=== PATIENT | male | born 1950 | race Caucasian/White ===

== ENCOUNTER → 2020-10-20 10:53 | Outpatient (BNVA) | payer BC, MEDICARE, SELFPAY | PROVIDERS: PCP Internal Medicine; Visit Provider Urology | DX: R97.20 Elevated prostate specific antigen [PSA] (principal); R39.12 Poor urinary stream | CPT/HCPCS: 51798; 81002 ==

== ENCOUNTER → 2021-12-07 08:38 | Outpatient (BNVA) | payer BC, MEDICARE, SELFPAY | PROVIDERS: PCP Internal Medicine; Visit Provider Urology ==

== ENCOUNTER → 2023-02-04 13:23 | Outpatient (BNVA) | payer MEDICARE, SELFPAY | PROVIDERS: PCP Internal Medicine; Visit Provider Urology | DX: N40.1 Benign prostatic hyperplasia with lower urinary tract symptoms (principal); N13.8 Other obstructive and reflux uropathy; R97.20 Elevated prostate specific antigen [PSA]; Z79.899 Other long term (current) drug therapy | CPT/HCPCS: 99212 ==

== ENCOUNTER 2023-05-21 14:51 | Outpatient (REF) | payer MEDICARE, SELFPAY ==
[2023-05-21 16:33] LABS: Vitamin B12 493 pg/mL (200-900)
== END 2023-05-21 14:52 | disposition home or self-care (01) ==
LOC: HO.LAB 14:51
PROVIDERS: PCP Physician Assistant; Visit Provider Psychiatry & Neurology Neurology
DX: G31.84 Mild cognitive impairment of uncertain or unknown etiology (principal)
CPT/HCPCS: 36415; 82607

== ENCOUNTER 2023-05-26 03:57 | Emergency (ER) | payer MEDICARE, SELFPAY ==
--- NOTE | ~2023-05-26 | CT_ITS ---
EXAMINATION: NONCONTRAST HEAD CT NONCONTRAST CERVICAL SPINE CT INDICATION INFORMATION: Fall, mild neck pain COMPARISON: None TECHNIQUE: Separate noncontrast CT examinations of the head and cervical spine were performed. Coronal head CT images and coronal and sagittal cervical spine images were created at the technologist workstation. DLP: 964 mGy-cm DOSE LOWERING TECHNIQUES: This CT examination was performed using dose optimization techniques as appropriate, variously including the following: - Automated exposure control - Adjustment of mA and/or kV according to patient size (this includes techniques or standardized protocols for targeted exams were dose is matched to indication/reason for exam; i.e. extremities or head) - Use of iterative reconstruction technique FINDINGS: Head: There is no evidence of acute intracranial hemorrhage or territorial infarction. No abnormal mass-effect or midline shift is seen. Morris to white matter differentiation is well preserved. No extra-axial fluid collections are identified. The ventricles are normal in size. Mild volume loss is noted. The osseous structures and soft tissues are normal. The mastoid air cells and visualized portions of the paranasal sinuses are well-aerated. Cervical spine: There is anatomic alignment of the vertebral bodies and posterior elements. Vertebral body heights are maintained. There is degenerative change at the atlantodens articulation. There is mild to moderate right-sided facet arthropathy. Prominent osteophytes are present throughout the mid and lower cervical spine, suggesting diffuse idiopathic skeletal hyperostosis. Intervertebral disc spaces are relatively well-preserved. No evidence of acute fracture. No prevertebral soft tissue swelling. Visualized portions of the lung apices are unremarkable. The thyroid gland is unremarkable. CT/CT cervical spine wo IV con IMPRESSION: No acute findings identified in the head or cervical spine. Chronic appearing and degenerative changes as noted above.
[2023-05-26 04:08] VITALS: BP 172/88; PULSE 61; RESP 20; TEMP 36.6; O2SAT 98; BMI 26.6
--- NOTE | 2023-05-26 04:36 | ED_ITS ---
HPI - Fall General Chief Complaint: Fall Stated Complaint: fall, head strike Time Seen by Provider: 05/26/23 05:06 Source: patient and family Mode of arrival: ambulatory Limitations: no limitations History of Present Illness HPI Narrative: Patient comes to the emergency room complaining of a laceration to the scalp. Patient states he got out of bed, believes he was having a nightmare, patient got out of bed, then tripped, fell backwards and hit his head in the corner corner of a nightstand. Patient complaining of localized pain, mild neck pain, no loss of consciousness, patient is not on blood thinners. Related Data Home Medications ?Medication ?Instructions ?Recorded ?Confirmed azelastine 137 mcg (0.1 %) nasal intranasal 12/07/21 06/10/23 spray lisinopril 2.5 mg tablet 2.5 mg PO DAILY 12/07/21 06/10/23 simvastatin 20 mg tablet 20 mg PO BEDTIME 12/07/21 06/10/23 Previous Rx's ?Medication ?Instructions ?Recorded cyclobenzaprine 10 mg tablet 10 mg PO BEDTIME #14 tabs 05/10/22 meloxicam 15 mg tablet 15 mg PO DAILY #14 tabs 05/10/22 tamsulosin 0.4 mg capsule 0.4 mg PO DAILY #90 caps 02/04/23 finasteride 5 mg tablet 5 mg PO DAILY 90 days #90 tabs 06/10/23 Allergies Allergy/AdvReac Type Severity Reaction Status Date / Time levofloxacin [From LEVAQUIN] Allergy Intermediate RASH/HIVES Verified 06/10/23 14:08 anethseia Allergy Unknown redness Uncoded 06/10/23 14:08 and itching Review of Systems Review of Systems: Constitutional : No Weight loss, No Fever, No Chills, No Night Sweats, No Fatigue, No Malaise ENT/Mouth : No Hearing loss, No Ear Pain, No Nasal Congestion, No Sinus Pain, No Hoarseness, No sore throat, No Rhinorrhea, No Swallowing Difficulty Eyes: No Eye Pain, No Swelling, No Redness, No Foreign Body, No Discharge, No Vision Changes Cardiovascular : No Chest Pain, No SOB, No Dyspnea on Exertion, No Orthopnea, No Edema, No Palpitations Respiratory : No Cough, No Sputum, No Wheezing, No Smoke Exposure, No Dyspnea Gastrointestinal : No Nausea, No Vomiting, No Diarrhea, No Constipation, No abdominal Pain, No Hematochezia, No Melena Genitourinary : no irregular bleeding, No Dysuria, No Urinary Frequency, No Hematuria, No Urinary Incontinence, No Urgency, No Flank Pain, No Urinary Flow Changes, No Hesitancy Musculoskeletal : Complaining of mild neck pain, No joint pain, No Myalgias, No Joint Swelling Skin : Complaining of a scalp laceration Neuro : No Weakness, No Numbness, No Paresthesias, No Loss of Consciousness, No Dizziness, No Headache Psych : No Anxiety/Panic, No Depression, No SI/HI/AH/VH, No Social Issues, Heme/Lymph: No Bruising, No Bleeding,No Lymphadenopathy Endocrine : No Polyuria, No Polydipsia, No Temperature Intolerance [facility] Past Medical History Medical History Elevated prostate specific antigen [PSA] BPH (benign prostatic hyperplasia) Increased prostate specific antigen (PSA) velocity Social History Social History Household Members: Spouse Physical Exam Vital Signs: Vital Signs: Last Vital Signs Temp 97.8 F 05/26/23 05:38 Pulse 55 05/26/23 05:38 Resp 18 05/26/23 05:38 BP 158/62 H 05/26/23 05:38 Pulse Ox 100 05/26/23 05:38 O2 Del Method Room Air 05/26/23 05:38 BMI result Body Mass Index 26.6 Const: Other: Appearance: Alert. Oriented X3. No acute distress. Eyes: Pupils equal, round and reactive to light. ENT: Pharynx normal. Neck: Normal inspection. Neck supple. No lymph nodes noted. No crepitus CVS: Normal heart rate and rhythm. Pulses normal. Normal S1 and S2 Respiratory: No respiratory distress. Breath sounds normal. No Wheezing. No rales Abdomen: Soft and nontender. No rigidity. No distention. Skin: Skin warm and dry. Normal skin color. Normal skin turgor. There is a 3 cm laceration to the scalp Extremities: No lower extremity edema. No Lacerations. No Rash Neuro: Oriented X 3. No motor deficit. No sensory deficit. Moving all extremities. No slurred speech. CN 2 through 12 grossly intact Psych: calm, cooperative, normal affect Procedures Laceration Laceration 1: Site: scalp Size (cm): 3 Description: linear Depth: simple, single layer Local Anesthetic: lidocaine 1% and with epi Amount of anesthesia used (mL): 4 Pre-repair: wound explored Skin layer closed with: other (Jania) Number of sutures: 5 Medical Decision Making Medical Decision Making MDM Narrative: -my interpretation of head CT: No intracranial bleed -patient has a 3 cm laceration, 5 jania were applied -Tylenol p.o. was offered to the patient Differential Diagnosis Differential Diagnoses: The differential diagnosis associated with the presentation includes (Intracranial bleed, contusion, concussion, laceration to scalp) Admission/Observation Consideration of admission/observation: Escalation of care including admission/observation considered (Patient came in complaining of headache, head trauma, admission was considered) Independent Interpretation I performed an independent interpretation of an: CT Scan Radiology Impression Discussion of test interpretation with radiology: I have reviewed the radiologist's reading. Radiologist Impression: INDINGS: Head: There is no evidence of acute intracranial hemorrhage or territorial infarction. No abnormal mass-effect or midline shift is seen. Morris to white matter differentiation is well preserved. No extra-axial fluid collections are identified. The ventricles are normal in size. Mild volume loss is noted. The osseous structures and soft tissues are normal. The mastoid air cells and visualized portions of the paranasal sinuses are well-aerated. Cervical spine: There is anatomic alignment of the vertebral bodies and posterior elements. Vertebral body heights are maintained. There is degenerative change at the atlantodens articulation. There is mild to moderate right-sided facet arthropathy. Prominent osteophytes are present throughout the mid and lower cervical spine, suggesting diffuse idiopathic skeletal hyperostosis. Intervertebral disc spaces are relatively well-preserved. No evidence of acute fracture. No prevertebral soft tissue swelling. Visualized portions of the lung apices are unremarkable. The thyroid gland is unremarkable. CT/CT cervical spine wo IV con IMPRESSION: No acute findings identified in the head or cervical spine. Chronic appearing and degenerative changes as noted above. Critical Care Time Critical Care Time Critical Care Time: Yes Total Critical Care Time: 60 Attestation: I have personally provided critical care time. Time includes review of lab data, radiology results, discussion with consultants, and monitoring for potential decompensation. Intervention performed as documented. Discharge Plan Discharge Clinical Impression: Fall, Laceration of scalp Patient Disposition: Home, Self-Care Instructions: Staple Care (ED) Additional Instructions: Your jania need to be removed in 7-10 days. Please follow-up with your primary care physician tomorrow. If you have any worsening or new symptoms, please return to the emergency room or call 911 Prescriptions: No Action tamsulosin 0.4 mg capsule 0.4 mg PO DAILY Qty: 90 3RF meloxicam 15 mg tablet 15 mg PO DAILY Qty: 14 0RF cyclobenzaprine 10 mg tablet 10 mg PO BEDTIME Qty: 14 0RF finasteride 5 mg tablet 5 mg PO DAILY 90 Days Qty: 90 3RF lisinopril 2.5 mg tablet 2.5 mg PO DAILY azelastine 137 mcg (0.1 %) aerosol,spray intranasal simvastatin 20 mg tablet 20 mg PO BEDTIME Interventions: ED Discharge Assessment Last Done: 05/26/23 05:45 Discharge Date/Time: 05/26/23 05:46 Print Language: Kazakh
--- NOTE | 2023-05-26 04:38 | PC.NURSE ---
pt to ct-scan
[2023-05-26 04:50] VITALS: BP 162/81; PULSE 60; RESP 18; TEMP 36.2; O2SAT 94
[2023-05-26 05:38] VITALS: BP 158/62; PULSE 55; RESP 18; TEMP 36.6; O2SAT 100
== END 2023-05-26 05:46 | disposition home or self-care (01) ==
PROVIDERS: Emergency Provider Emergency Medicine
DX: S01.01XA Laceration without foreign body of scalp, initial encounter (principal); W06.XXXA Fall from bed, initial encounter; Y93.9 Activity, unspecified; Y92.009 Unspecified place in unspecified non-institutional (private) residence as the place of occurrence of the external cause; Y99.9 Unspecified external cause status
CPT/HCPCS: 12002; 70450; 72125; 99283; 99284

== ENCOUNTER 2023-06-10 14:05 | Outpatient (AMB) | payer MEDICARE, SELFPAY ==
--- NOTE | 2023-06-10 14:07 | MHC.OFFVIS ---
Intake Intake Visit Reasons: 4m follow up Intake Note: Patient is present for Telephone Follow up Urology Med: Tamsulosin Antibiotic Allergy: Levofloxacin Blood Thinner: None Pharmacy: [facility] Allergies levofloxacin [From LEVAQUIN] Allergy (Intermediate, Verified 06/10/23 14:08) RASH/HIVES anethseia Allergy (Unknown, Uncoded 06/10/23 14:08) redness and itching Medication List - Last Reconciled 06/10/23 by Oniel Rowe MD azelastine intranasal cyclobenzaprine 10 mg PO BEDTIME finasteride 5 mg PO DAILY 90 days lisinopril 2.5 mg PO DAILY meloxicam 15 mg PO DAILY simvastatin 20 mg PO BEDTIME tamsulosin 0.4 mg PO DAILY HPI HPI Comments History of Present Illness Details Pj is a pleasant male. He is a patient of Dr. Kinney. He is seen for the following urologic conditions - elevated PSA - BPH Continue combination therapy finasteride with tamsulosin ANSHU 2+ Minimal nocturia Happy with current emptying Twelve month follow-up PSA Lower urinary tract symptoms Longstanding Prior TURP 2009 PSA historically around 4. Prior negative biopsy. 11/20 4.4, 12/19 3.7 32% Current medications include tamsulosin 0.4 mg daily Therapeutic plan - trial finasteride [facility] Medical History Elevated prostate specific antigen [PSA] BPH (benign prostatic hyperplasia) Increased prostate specific antigen (PSA) velocity Social History Household Members: Spouse Review of Systems Const Denies chills and Denies fever(s) Card Reports no additional complaints and Denies syncope Resp Denies cough GI Denies abdominal pain and Denies heartburn Reports as per HPI and Denies change in libido Neuro Denies syncope Psych Denies change in libido Endo Denies change in libido Physical Exam Const General: cooperative, healthy appearing, comfortable and no acute distress Orientation/consciousness: patient oriented x3 HEENT Face and sinus: Yes normal facial exam Mouth: moist mucous membranes Neck Neck: Yes normal visual inspection, Yes full ROM and Yes trachea midline Chest Chest palpation & inspection: normal inspection of the chest Resp Effort & Inspection: normal respiratory effort, able to speak in complete sentences and no respiratory distress GI Inspection: Yes normal to inspection Back/Spine/Pelvis Cervical Spine: normal cervical lordosis Thoracic/Lumbar Spine: thoracic and lumbar spine normal to inspection Skin General skin exam: no rashes or lesions noted Neuro General: patient oriented x3, gait normal, tone normal and moves all extremities Extrem General: Yes normal to inspection and Yes capillary refill normal Assessment & Plan Assessment & Plan (1) Upper respiratory tract infection: Code(s): J06.9 - Acute upper respiratory infection, unspecified (2) BPH (benign prostatic hyperplasia): Code(s): N40.0 - Benign prostatic hyperplasia without lower urinary tract symptoms Qualifiers: Lower urinary tract symptom presence: symptoms present Lower urinary tract symptom detail: weak urinary stream Qualified Code(s): N40.1 - Benign prostatic hyperplasia with lower urinary tract symptoms; R39.12 - Poor urinary stream (3) Elevated prostate specific antigen [PSA]: Code(s): R97.20 - Elevated prostate specific antigen [PSA] Plan 12 month follow-up PSA Orders: Orders Prostate Specific Antigen 364 Days R97.20 - Elevated prostate specific antigen [PSA] Patient Instructions: Imaging studies, laboratory and physical exam results were discussed and reviewed in detail. No major barriers to patient understanding were identified. An opportunity to ask questions regarding the treatment plan was provided. All questions were answered. The patient expressed understanding and agreement with the above treatment plan. The patient is aware they should contact our office by phone for worsening of their current condition or the appearance of new urologic symptoms. Compliance is encouraged with any medications and followup testing that is ordered. It is a privilege to participate in the urologic care of your patient. If you have any questions or concerns regarding treatment for the above conditions, or other urologic issues, please do not hesitate to contact me. The office telephone contact is [phone]. This note is constructed using voice recognition software. While every effort has been made to ensure accuracy felt machine mechanic errors may have been included. Yours sincerely, Dr Oniel Rowe MD, [facility] - Urology Providers of Expert, Compassionate Care for the Genitourinary System Telehealth Telehealth Location of provider rendering services: practice address Location of patient: address on file Patient Identification confirmed using: Name, : Yes Telehealth method: voice only Patient verbally consented to treatment: Yes Patient verbally consented to billing insurance company: Yes Patient informed of any privacy concerns related to visit: Yes Coding Level of Care Code Est Pt Level 4 (37840) Diagnoses Upper respiratory tract infection J06.9 Benign prostatic hyperplasia with weak urinary stream N40.1; R39.12 Lower urinary tract symptom presence: symptoms present Lower urinary tract symptom detail: weak urinary stream Elevated prostate specific antigen [PSA] R97.20
== END 2023-06-10 14:30 | disposition home or self-care (01) ==
PROVIDERS: Visit Provider Urology
DX: J06.9 Acute upper respiratory infection, unspecified (principal); N40.1 Benign prostatic hyperplasia with lower urinary tract symptoms; R39.12 Poor urinary stream; R97.20 Elevated prostate specific antigen [PSA]
CPT/HCPCS: 99442

== ENCOUNTER → 2023-06-10 14:05 | Outpatient (BNVA) | payer MEDICARE, SELFPAY | PROVIDERS: Visit Provider Urology ==

== ENCOUNTER 2024-06-04 12:08 | Outpatient (REF) | payer MEDICARE, SELFPAY ==
[2024-06-04 14:27] LABS: Prostate Specific Antigen 1.76 ng/mL (<0.05-4.0)
== END 2024-06-04 12:09 | disposition home or self-care (01) ==
LOC: HO.LAB 12:08
PROVIDERS: PCP Physician Assistant Medical; Visit Provider Urology
DX: R97.20 Elevated prostate specific antigen [PSA] (principal); Z12.5 Encounter for screening for malignant neoplasm of prostate
CPT/HCPCS: 36415; 84153

== ENCOUNTER 2024-06-09 13:32 | Outpatient (AMB) | payer MEDICARE, SELFPAY ==
--- NOTE | 2024-06-09 13:46 | A.OFFVIS_ITS ---
Intake Visit Reasons: 1y/PSA/PVR(set) Intake Note: Patient is Present for PVR/PSA Urology Med: Finasteride, Tamsulosin Antibiotic Allergy:Levofloxacin Blood Thinner: None Patient states that at times he can not make it to the bathroom in time. Frequency of urination has increased Todays PVR: 50ml Allergies levofloxacin [From LEVAQUIN] Allergy (Intermediate, Verified 06/10/23 14:08) RASH/HIVES anethseia Allergy (Unknown, Uncoded 06/10/23 14:08) redness and itching HPI Comments Details: Pj is a pleasant male. He is a patient of Dr. Kinney. He is seen for the following urologic conditions - elevated PSA - lower urinary tract symptoms Yearly review Continue combination therapy finasteride with tamsulosin ANSHU 2+ Significant PSA drawn on finasteride Has felt that he may have some side effects May reduce finasteride to Friday, Friday, Friday 12 month follow-up Lower urinary tract symptoms Longstanding Prior TURP 2009 PSA historically around 4. Prior negative biopsy. 11/20 4.4, 12/19 3.7 32%, 06/22 1.7 Current medications include tamsulosin 0.4 mg daily Therapeutic plan - interval review [facility] Medical History Elevated prostate specific antigen [PSA] BPH (benign prostatic hyperplasia) Increased prostate specific antigen (PSA) velocity Social History Household Members: Spouse Review of Systems Const Denies chills and Denies fever(s) Card Reports no additional complaints and Denies syncope Resp Denies cough GI Denies abdominal pain and Denies heartburn Reports as per HPI and Denies change in libido Neuro Denies syncope Psych Denies change in libido Endo Denies change in libido Physical Exam Const General: cooperative, healthy appearing, comfortable and no acute distress Orientation/consciousness: patient oriented x3 HEENT Face and sinus: Yes normal facial exam Mouth: moist mucous membranes Neck Neck: Yes normal visual inspection, Yes full ROM and Yes trachea midline Chest Chest palpation & inspection: normal inspection of the chest Resp Effort & Inspection: normal respiratory effort, able to speak in complete sentences and no respiratory distress GI Inspection: Yes normal to inspection Back/Spine/Pelvis Cervical Spine: normal cervical lordosis Thoracic/Lumbar Spine: thoracic and lumbar spine normal to inspection Skin General skin exam: no rashes or lesions noted Neuro General: patient oriented x3, gait normal, tone normal and moves all extremities Extrem General: Yes normal to inspection and Yes capillary refill normal Office Procedures Post Void Residual Post Residual Void Post Void Residual (PVR): 50 24088-Fpam Void Residual by ultrasound Assessment & Plan Assessment & Plan (1) BPH (benign prostatic hyperplasia): Code(s): N40.0 - Benign prostatic hyperplasia without lower urinary tract symptoms Category: Medical Qualifiers: Lower urinary tract symptom presence: symptoms present Lower urinary tract symptom detail: weak urinary stream Qualified Code(s): N40.1 - Benign prostatic hyperplasia with lower urinary tract symptoms; R39.12 - Poor urinary stream (2) Elevated prostate specific antigen [PSA]: Code(s): R97.20 - Elevated prostate specific antigen [PSA] Category: Medical Plan 12 month follow-up PSA and PVR Orders: Orders AMB Post Void Residual by ultrasound Today N40.1 - Benign prostatic hyperplasia with lower urinary tract symptoms, R39.12 - Poor urinary stream Prostate Specific Antigen 364 Days N40.1 - Benign prostatic hyperplasia with lower urinary tract symptoms, R39.12 - Poor urinary stream Patient Instructions: Imaging studies, laboratory and physical exam results were discussed and reviewed in detail. No major barriers to patient understanding were identified. An opportunity to ask questions regarding the treatment plan was provided. All questions were answered. The patient expressed understanding and agreement with the above treatment plan. The patient is aware they should contact our office by phone for worsening of their current condition or the appearance of new urologic symptoms. Compliance is encouraged with any medications and followup testing that is ordered. It is a privilege to participate in the urologic care of your patient. If you have any questions or concerns regarding treatment for the above conditions, or other urologic issues, please do not hesitate to contact me. The office telephone contact is [phone]. This note is constructed using voice recognition software. While every effort has been made to ensure accuracy valve pipe irrigator errors may have been included. Yours sincerely, Dr Oniel Rowe MD, [facility] - Urology Providers of Expert, Compassionate Care for the Genitourinary System Coding Level of Care Code Est Pt Level 4 (00948) Diagnoses Benign prostatic hyperplasia with weak urinary stream N40.1; R39.12 Lower urinary tract symptom presence: symptoms present Lower urinary tract symptom detail: weak urinary stream Elevated prostate specific antigen [PSA] R97.20 CPT Codes Post Residual Void - PVR CPT Code: 39030-Pint Void Residual by ultrasound ([id number])
== END 2024-06-09 14:20 | disposition home or self-care (01) ==
PROVIDERS: Visit Provider Urology
DX: N40.1 Benign prostatic hyperplasia with lower urinary tract symptoms (principal); R39.12 Poor urinary stream; R97.20 Elevated prostate specific antigen [PSA]
CPT/HCPCS: 99214

== ENCOUNTER → 2024-06-09 13:32 | Outpatient (BNVA) | payer MEDICARE, SELFPAY | PROVIDERS: Visit Provider Urology | DX: N40.1 Benign prostatic hyperplasia with lower urinary tract symptoms (principal); R35.0 Frequency of micturition; R39.12 Poor urinary stream; R97.20 Elevated prostate specific antigen [PSA] | CPT/HCPCS: 51798; 99212 ==

== ENCOUNTER 2025-04-07 12:36 | Outpatient (AMB) | payer MEDICARE, SELFPAY ==
--- OUTSIDE RECORDS SUMMARY | 2025-04-07 07:39 | XMS_ITS | Continuity of Care Document ---
Author Name [facility] Organization [facility] Care Team Providers Care Joint Cleaning Machine Operator Name Role Phone [facility] Unavailable Unavailable Problems Combined list of problems from Department of Defense and Veterans Affairs facilities. It does not include entries that were removed or entered in error. Problem Status Onset Date Problem Type Date of Resolution Comments Source Allergic rhinitis Active Condition [facility] [place] [facility] Benign Prostatic Hypertrophy without Outflow Obstruction ([facility] [id number]) Active Condition [facility] [place] [facility] Cognitive decline Active Condition [facility] [place] [facility] HTN - Hypertension ([facility] [id number]) Active Condition [facility] [place] [facility] Hyperlipidemia ([facility] [id number]) Active Condition [facility] [place] [facility] Diagnosis: ICD-10-CM I10 Essential (primary) hypertension Active Diagnosis [facility] [place] [facility] Diagnosis: ICD-10-CM Z88.1 Allergy status to other antibiotic agents Active Diagnosis [facility] [place] [facility] Medications Combined list of outpatient medications from Department of Defense and Veterans Affairs facilities.Medications provided include 1) outpatient medications from the last 15 months, and 2) patient-reported medications. Medication Details Route Status Patient Instructions Prescription Expires Prescription Number Last Dispense Date Ordering Provider Order Date Order Qty Source ALBUTEROL 90MCG/ACTUA T (CFC-F) INHL,ORAL,8 .5GM DOSE COUNTER INHALE 2 PUFFS BY MOUTH EVERY 4 HOURS NEEDED RESPIR ATORY (INHAL ATION) ACTIVE TERRANCE NUNES 2024 [facility] [place] [facility] CALCIUM 250MG/VITAM IN D 125UNT TAB TAKE TWO TABLETS BY MOUTH TWICE DAILY ORAL ACTIVE TERRANCE NUNES 2024 [facility] [place] [facility] FINASTERIDE 5MG TAB TAKE ONE TABLET BY MOUTH ONCE DAILY ORAL ACTIVE TERRANCE NUNES 2024 [facility] FLUTICASONE PROPIONATE 50MCG/SPRAY SOLN,NASAL, 16GM INSTILL 2 SPRAYS INTO EACH NOSTRIL ONCE DAILY NASAL ACTIVE MANJU TERRANCE Melo 2024 [facility] LOSARTAN 50MG TAB TAKE ONE TABLET BY MOUTH ONCE DAILY ORAL ACTIVE NUNES, TERRANCE Melo 2024 [facility] MEMANTINE TAB TAKE 5MG BY MOUTH ONCE DAILY ORAL ACTIVE NUNES TERRANCE Melo 2024 [facility] SERTRALINE HCL 100MG TAB TAKE ONE-HALF TABLET BY MOUTH ONCE DAILY ORAL ACTIVE NUNES TERRANCE Mleo 2024 [facility] SIMVASTATIN 40MG TAB TAKE ONE-HALF TABLET BY MOUTH ONCE DAILY ORAL ACTIVE NUNES TERRANCE Melo 2024 [facility] TAMSULOSIN HCL 0.4MG CAP TAKE 2 CAPSULES BY MOUTH AT BEDTIME ORAL ACTIVE NUNES TERRANCE Meol 2024 [facility] Allergies, Adverse Reactions, Alerts Combined list of allergies from Department of Defense and Veterans Affairs facilities. It does not include entries that were removed or entered in error. Substance Category Reaction Severity Reaction type Status Date Reported Comments Source LEVAQUIN Propensity to adverse reactions to drug (finding) Urticaria active 4 [facility] SCALLOPS Propensity to adverse reactions to substance (finding) Nausea and vomiting active 4 [facility] Immunizations Combined list of available immunizations from the Department of Defense and Veterans Affairs facilities. Immunization Series Date Given Administered By Site Reaction Lot Number CVX Code Drug Hydrogen Power Plant Manager Status Comments Source INFLUENZA, UNSPECIFIED FORMULATION 2023 88 complet ed Completed Series, HISTORICA L INFORMATI ON - FROM PATIENT'S RECALL, [facility] Vital Signs Combined list of inpatient and outpatient Vital Signs from Department of Defense and Veterans Affairs, ranging from 12 months to all on record, depending upon the facility. Vital Sign Value Date Comments Source SYSTOLIC BLOOD PRESSURE 136 10/22/19 25 09:49:00 [facility] [place] [facility] DIASTOLIC BLOOD PRESSURE 78 025 09:49:00 [facility] [place] [facility] SYSTOLIC BLOOD PRESSURE 149 10/19/19 25 15:10:36 [facility] [place] [facility] DIASTOLIC BLOOD PRESSURE 81 025 15:10:36 [facility] [place] [facility] PULSE OXIMETRY 96 10/19/2024 15:10:36 [facility] [place] [facility] WEIGHT 169 10/19/2024 15:10:36 [facility] [place] [facility] BMI 30 kg/m2 10/19/2024 15:10:36 [facility] [place] [facility] PAIN 0 10/19/2024 15:10:36 [facility] [place] [facility] HEIGHT 63 10/19/2024 15:10:36 [facility] [place] [facility] TEMPERATURE 98 10/19/2024 15:10:36 [facility] [place] [facility] PULSE 64 10/19/2024 15:10:36 [facility] [place] [facility] RESPIRATION 16 10/19/2024 15:10:36 [facility] [place] [facility] Encounters Combined list of: 1) Encounters from Department of Veterans Affairs facilities going backup to the last 18 months, not all VA inpatient encounters are included; 2) Encounters from the Department of Defense facilities going backup to 280 months. Location Location Details Encounter Type Encounter Number Reason For Visit Attending Provider ADM Date DC Date Status Disposition Source [facility] Outpatient Encounter [id number] 07/05 [facility] [place] Outpatient Encounter [id number] Diagnos is: ICD-10- CM Z88.1 Allergy status to other antibio tic agents TASHIA ESPINOZA 09/15 [facility] [place] [place] [facility] Outpatient Encounter [id number] 10/19 [place] [facility] [place] [facility] [place] [facility] OFFICE O/P NEW LOW 30 MIN [id number] Diagnos is: ICD-10- CM I10 Essenti al (primar y) hyperte nsion NUNES,W ILLIAM J 10/19 [place] [facility] [place] [facility] [place] [facility] Outpatient Encounter [id number] 01/10 [facility] Social History Combined list of available smoking, tobacco, and other social history from Department of Defense and Veterans Affairs facilities. Social History Type Response Date Comment Sourc e Tobacco smoking status NHIS [facility]-TOBACCO USE FORMER CIGARETTES 10/19/2024 [facility] History of tobacco use [place]-TOBACCO NEVER USED OTHER TYPE 10/19/2024 [facility] Plan of Care List of future care activities from Department of Veterans Affairs facilities. Additional future care activities may be listed in the Assessment and Plan section. Date/Time Care Activity Care Activity Detail Facili ty 04/13/2025 AMBULATORY - MEDICINE AMBULATORY - MEDICI NE [facility]
--- OUTSIDE RECORDS SUMMARY | 2025-04-07 12:41 | XMS_ITS | Data Portability ---
Author Organization [place] - [facility], Allergy Address [address] [place] [id number] Care Team Providers Care Orthopedic Physical Therapist Name Role Phone PATRICIO ABDULLAHI Primary Care Provider Assessment Encounter Date Assessment Date Assessment LastModified by Organization Details LastModified Time 04/07/2024 04/07/2024 Patient was previously noted to have right maxillary sinusitis. Symptoms were improved with antibiotics and treatment of his dental infection. He now notes recurrent sinus pain and pressure despite another round of antibiotics. CT scan of sinuses recommended. Unable to perform today due to IT issues. Will schedule at his convenience [email or web address] Not available 04/07/2024 14:23:28 04/23/2024 04/23/2024 Patient with prior history of right maxillary sinusitis presents with persistent nasal congestion on the right side. He has a known mild septal deviation to the right side. He has been using Flonase and saline. CT scan performed today shows no evidence of sinus disease. At this point, the symptoms were not bad enough to warrant consideration for surgical intervention. Suggest continuing saline and Flonase. Return as needed [email or web address] Not available 04/23/2024 16:04:21 06/24/2024 06/24/2024 CL & CK. Both aids working fine. Annual appt made [email or web address] Not available 06/24/2024 16:06:24 01/06/2025 01/06/2025 both aids completely plugged. Chhaned wax guards. Both aids working fine now. [email or web address] Not available 01/06/2025 13:17:03 Plan of Treatment Reminders Order Date Submit Date Provider Last Modified By Organization Details Last Modified Time Details Appointments PFEIFFER Fitting Follow Up (30) 2024 02:00P M IVETH PADRON, [place] Not available Not available Not available Lab unlisted lab - allergens , zone 1 2024 025 MICHELLE [facility], [address] [facility] [facility], [place], [address], 01/28/2025 16:50:00 ige, total, serum 2024 025 MICHELLE [facility], [address], [place], [address], 01/28/2025 16:50:01 CBC w/ auto diff 2024 025 UNADILLA [facility], [address], [place], [address], 01/28/2025 16:49:59 Referral None recorded. Procedures None recorded. Surgeries None recorded. Imaging CT, sinuses, w/o contrast 2023 024 UNADILLA [facility], [address] [place] [address], [phone], 04/23/2024 16:19:51 CT, maxillofa cial, w/o contrast - KF to schedule 2023 024 [email or web address] Not available 05/12/2024 11:54:30 Medication Orders None recorded. Patient TargetsNo targets recorded. Patient Instructions Encounter Date Encounter Id Patient Instructions Last Modified By Organization Details Last Modified Time 01/25/2025 [id number] Patient interested in pursuing allergy immunotherapy. We discussed that since his symptoms are relatively controlled with antihistamines and occasional use of nasal steroids, that would likely not be helpful at his age. We will check an IgE level and a RAST panel to see if we can identify what he is allergic to and work on environmental controls as well [email or web address] Not available 01/25/2025 14:15:37 Reason for Referral None Reported. Results Created Date Observation Date Name Description Value Unit Range Abnormal Flag Note LastModifiedBy Organization Detail LastModifiedTime 04/23/[address], sinus es, w/o contr ast No observ ation record ed. [email or web address] [address] [facility], [place], [address], 04/23/2024 16:02:42 05/05/20 24 04/23/2024 CT, sinus es, w/o contr ast No observ ation record ed. [facility] [address] [facility] [address], [place], [address], 05/05/2024 16:06:47 05/18/20 24 06/13/2023 imagi ng/di agnos tic resul t No observ ation record ed. [email or web address] Not Available 19:48:07 05/18/20 24 06/16/2023 imagi ng/di agnos tic resul t No observ ation record ed. [email or web address] Not Available 19:48:12 05/18/20 24 06/16/2023 imagi ng/di agnos tic resul t No observ ation record ed. [email or web address] Not Available 19:48:15 05/18/2006/16/2023 imagi ng/di agnos tic resul t No observ ation record ed. [email or web address] Not Available 19:48:19 05/18/20 24 10/30/2023 audio gram No observ ation record ed. [email or web address] Not Available 19:48:34 05/18/20 24 11/27/2023 audio gram No observ ation record ed. [email or web address] Not Available 19:48:37 05/18/20 24 12/18/2023 audio gram No observ ation record ed. [email or web address] Not Available 19:48:41 05/18/20 24 12/25/2023 audio gram No observ ation record ed. [email or web address] Not Available 19:48:47 05/18/20 24 06/13/2023 audio gram No observ ation record ed. [email or web address] Not Available 19:48:54 Result Notes None recorded. Problems Name Problem SNOMED Code Status Onset Date Resolution Date Notes Provider Name and Address Organization Details Recorded Time Chronic maxillary sinusitis 67675361 Active 2022 Chronic maxillary sinusitis ; Note: Date Diagnosed : 07/02/2023 12:07 PM (J32.0) Not Available [facility] 4 02:29:32 Tinnitus of right ear 58455063250 08 Active 2022 Tinnitus, right ear; Note: Date Diagnosed : 06/13/2023 3:11 PM (H93.11) Not Available [facility] 4 02:28:59 Sensorine ural hearing loss of bilateral ears 866774610 Active 2022 Sensorine ural hearing loss, bilateral ; Note: Date Diagnosed : 06/13/2023 3:11 PM (H90.3) Not Available [facility] 4 02:28:56 Chronic right maxillary sinusitis 63671876875 936523 Active 2023 STEVEN SMITH MD [address] [facility], [place], [address] , [facility] - [facility] 4 13:39:57 Deviated nasal septum 298077365 Active 2023 STEVEN SMITH MD [address] [facility], [place], [address] , [facility] - [facility] 4 13:40:12 Chronic pain in face 628256061 Active 2023 STEVEN SMITH MD [address] [facility] [address] [address], [place], [address] , [facility] - [facility] 4 14:24:26 Nasal congestio n 12203424 Active 2023 STEVEN SMITH MD [address] [facility] [address], [place], [address] , [facility] - [facility] 4 16:02:36 Allergic rhinitis 30704105 Active 2024 STEVEN SMITH MD [address] [facility],[place] [address], [place], [address] , [facility] 5 14:14:39 Obstructi ve sleep apnea syndrome 01444668 Active 2024 STEVEN SMITH MD [address] [facility],[place] [address], [place], [address] , [facility] [place] 5 14:14:48 Problem Notes None recorded. Procedures Surgical History Date Name Laterality Status Provider Name and Address Organization Details Recorded Time 4 JMSNasal/Sinus Endoscopy completed STEVEN MERLOS MD [address] [facility],[place] [address], [place], [address], [facility] 04/07/2024 13:39:50 Imaging Results None recorded. Procedure Notes None recorded. Medical Equipment None Reported. Allergies Allergen ID Allergen Name Allergen Category Reaction Reaction Severity Criticality Documentation Date Start Date Code Code System Note Provider Name and Address Organization Details Recorded Time 49255 Levaquin medicatio n hives Not available Not available 2024 88423 2 RxNorm React ion: Hives ; Not Available [facility] 4 00:54:16 Medications Name Sig Start Date Stop Date Status Note LastModified by Organization Details LastModified Time losartan 50 mg tablet TAKE 1 TABLET BY MOUTH 1 TIME EACH DAY. active Not Available Not Available No t Available cyclobenz aprine 10 mg tablet PLEASE SEE ATTACHED FOR DETAILED DIRECTIO NS active Not Available Not Available No t Available amoxicill in 500 mg capsule TAKE 1 CAPSULE BY MOUTH THREE TIMES A DAY UNTIL FINISHED active Not Available Not Available No t Available latanopro st 0.005 % eye drops active Medicati on ID: [id number] B rand Name: latanopr ost Send Method: E-Prescr ibed Sub s Allowed: subs OK Medic ationGen ericName : latanopr ost Not Available Not Available Not Available doxycycli ne hyclate 100 mg capsule TAKE 1 CAPSULE BY MOUTH TWICE A DAY FOR 21 DAYS 04/07 completed Not Available Not Available Not Available donepezil 5 mg tablet TAKE 1 TABLET BY MOUTH EVERY DAY AT BEDTIME FOR 30 DAYS active Not Available Not Available No t Available azithromy shayla 250 mg tablet TAKE 2 TABLETS BY MOUTH TODAY, THEN TAKE 1 TABLET DAILY FOR 4 DAYS DIRECTED active Not Available Not Available No t Available ofloxacin 0.3 % eye drops PLEASE SEE ATTACHED FOR DETAILED DIRECTIO NS active Not Available Not Available No t Available brinzolam sue 1 % eye drops,jackelyn pension INSTILL 1 DROP INTO BOTH EYES TWICE A DAY active Not Available Not Available No t Available prednison e 20 mg tablet TAKE 3 TABS ON THE FIRST 3 DAYS, TAKE 2 TABS ON NEXT 3 DAYS, TAKE 1 TAB ON NEXT 3 DAYS, THEN STOP 04/07 completed Not Available Not Available Not Available acetamino phen 300 mg-codein e 30 mg tablet TAKE 1 TABLET BY MOUTH EVERY 4-6 HOURS NEEDED FOR PAIN active Not Available Not Available No t Available tamsulosi n 0.4 mg capsule TAKE 1 CAPSULE BY MOUTH 2 TIMES DAILY. TAKE 30 MINS AFTER SAME MEAL EVERY DAY. active Not Available Not Available No t Available simvastat in 20 mg tablet TAKE 1 TABLET BY MOUTH EVERYDAY AT BEDTIME active Not Available Not Available No t Available lisinopri l 10 mg tablet 04/07 completed Medicati on ID: [id number] B rand Name: lisinopr il Send Method: E-Prescr ibed Sub s Allowed: subs OK Medic ationGen ericName : lisinopr il Medic ation ID: [id number] B rand Name: lisinopr il Send Method: E-Prescr ibed Sub s Allowed: subs OK Medic ationGen ericName : lisinopr il Not Available Not Available Not Available sertralin e 25 mg tablet active Medicati on ID: [id number] B rand Name: sertrali ne Send Method: E-Prescr ibed Sub s Allowed: subs OK Medic ationGen ericName : sertrali ne Not Available Not Available Not Available simethico ne 125 mg chewable tablet CHEW 1 TABLET (125 MG TOTAL) BY MOUTH EVERY 6 (SIX) HOURS IF NEEDED FOR FLATULEN CE. active Not Available Not Available No t Available Culturell e 10 billion cell capsule by mouth 2022 active Medicati on ID: [id number] D uration Value: 30 Brand Name: Manjitl le Send Method: E-Prescr ibed Sub s Allowed: subs OK Speci al Instruct ion: one twice daily Me dication GenericN maldonado: Culturel le Not Available Not Available Not Available albuterol sulfate HFA 90 mcg/actua tion aerosol inhaler TAKE 2 PUFFS (INHALAT ION) EVERY 6 HOURS (SHORTNE SS OF BREATH OR WHEEZING ) FOR 10 DAYS active Not Available Not Available No t Available fluticaso ne propionat e 50 mcg/actua tion nasal spray,jackelyn pension active Not Available Not Available Not Available sertralin e 50 mg tablet TAKE 1 TABLET BY MOUTH EVERY DAY FOR 90 DAYS active Not Available Not Available No t Available doxycycli ne hyclate 100 mg tablet TAKE 1 TABLET (ORAL) 2 TIMES PER DAY FOR 10 DAYS LIMITS SUN EXPOSURE WHILE ON THIS ANTIBIOT IC active Not Available Not Available No t Available finasteri de 5 mg tablet TAKE 1 TABLET BY MOUTH DAILY FOR 90 DAYS active Not Available Not Available No t Available loratadin e 10 mg tablet active Medicati on ID: [id number] B rand Name: loratadi ne Send Method: E-Prescr ibed Sub s Allowed: subs OK Speci al Instruct ion: TAKE 1 TABLET BY MOUTH EVERY DAY Medi cationGe nericNam e: loratadi ne Not Available Not Available Not Available dorzolami de 2 % eye drops INSTILL 1 DROP INTO BOTH EYES TWICE A DAY active Not Available Not Available No t Available memantine 5 mg tablet TAKE 1 TABLET BY MOUTH EVERYDAY AT BEDTIME active Not Available Not Available No t Available escitalop iris 5 mg tablet TAKE 1 TABLET BY MOUTH EVERY DAY active Not Available Not Available No t Available Calcium 500 With D 500 mg-10 mcg (400 unit) tablet TAKE 1 TABLET BY MOUTH TWICE DAILY. active Not Available Not Available No t Available rivastigm ine 9.5 mg/24 hour transderm al patch APPLY 1 PATCH ONTO THE SKIN EVERY DAY active Not Available Not Available No t Available rivastigm ine 4.6 mg/24 hour transderm al patch active Medicati on ID: [id number] B rand Name: rivastig mine Sen d Method: E-Prescr ibed Sub s Allowed: subs OK Medic ationGen ericName : rivastig mine Not Available Not Available Not Available diclofena c 1 % topical gel APPLY 2 G TOPICALL Y 4 TIMES DAILY NEEDED (PAIN). active Not Available Not Available No t Available Anoro Ellipta 62.5 mcg-25 mcg/actua tion powder for inhalatio n TAKE 1 PUFF BY MOUTH EVERY DAY active Not Available Not Available No t Available Paxlovid 300 mg (150 mg x 2)-100 mg tablets in a dose pack TAKE 3 TABLETS BY MOUTH TWICE A DAY FOR 5 DAYS 04/07 completed Not Available Not Available Not Available Xdemvy 0.25 % eye drops INSTILL 1 DROP INTO BOTH EYES TWICE DAILY FOR 42 DAYS active Not Available Not Available No t Available Vitals Date Recorded Body height Body mass index (BMI) Body weight Provider Name and Address Organization Details Last Updated DateTime 01/25/2025 160.02 cm 26.6 kg/m2 71705.86 g Lorraine Isaacs [facility] 01/25/2025 14:02:40 Date Recorded Body height Body mass index (BMI) Body weight Provider Name and Address Organization Details Last Updated DateTime 04/07/2024 160.02 cm 26.6 kg/m2 86497.86 g Rosendo Johnson [facility] 04/07/2024 13:18:13 Social History None recorded. Functional Status None recorded. Mental Status None recorded. Family History Nothing Reported. Medical History No medical history recorded. Past Encounters Encounter ID Performer Location Encounter Start Date Encounter Closed Date Diagnosis/Indication Diagnosis SNOMED-CT Code Diagnosis ICD10 Code Diagnosis Note [id number] STEVEN SMITH MD [facility] [address] [address] 04/07/2024 13:09:28 04/07/2024 16:24:31 Chronic right maxillary sinusitis 4478876204 0988750 J32.0 Deviated nasal septum 12 4814546 J34.2 Chronic pain in face 432 372195 R51.9 [id number] STEVEN SMITH MD [facility] [address] [address] 04/23/2024 15:16:33 04/23/2024 16:08:11 Nasal congestion 93683551 R09.81 Deviated nasal septum 12 9756904 J34.2 [id number] IVETH PADRON, [facility] [address] [facility] [place] [address] 06/24/2024 14:29:55 06/28/2024 07:00:55 Sensorineural hearing loss of bilateral ears 331373432 H90.3 [id number] IVETHCOLUMBA CAMPO PFEIFFER [place] [address] [facility],[address] [facility] [place] [address] 01/06/2025 12:56:36 01/17/2025 12:38:37 Sensorineural hearing loss of bilateral ears 258705228 H90.3 [id number] STEVEN SMITH MD [facility] 100 [place] [address] 01/25/2025 13:45:02 01/25/2025 14:18:40 Allergic rhinitis 52945405 J30.89 Deviated nasal septum 12 5218939 J34.2 Obstructiv e sleep apnea syndrome 65071656 G47.33 Currently not using CPAP Health Concerns Section Related Observation LastModified by Organization Detai ls LastModified Time None Recorded Concern Status LastModified by Organization Details LastModified Time None Recorded Advance Directives Directive None Recorded Payers Insurance Date Sequence Insurance Name Policy Number Policy Nguyen Covered Member ID Nguyen Member ID Guarantor Name 01/25/2025 1 [place] [employer] Pj D [place] [id number] Pj [place] 01/25/2025 2 BCBS-ID BLUE CROSS [id number] Pj D London [id number] Pj [place] 01/25/2025 1 [employer] (MEDICARE REPLACEMENT/ ADVANTAGE - PPO) [id number] Pj D [place] [id number] Jp [place] Notes Date Note Type Note Provider Name and Address Organization Details Recorded Time 04/07/2024 text/html Just after last visit he got COVID and developed more right sided sinus congestion, PND and cough. Cough has resolved but still congestion last visit 73-year-old male presents for re-evaluation of sinusitis. Was initially evaluated for asymmetrical hearing loss. MRI was obtainedand showed no sign of retro cochlear pathology but did show right-sided maxillary sinusitis. Likely related to a molar extraction. He was treated withdoxycycline and had improvement in symptoms. Today he reports only occasional nasal drainage. Pain and pressure in his face have essentiallyresolved. He has not been using saline rinses and only uses Flonase occasionally.History of hearing STEVEN MERLOS MD [address] [facility], [place], [address], [place] - [facility] 04/07/2024 14:24:43 04/23/2024 text/html Patient seen in follow-up for right maxillary sinusitis related to dental infection. Still has right congestion despite FP and saline STEVEN MERLOS MD [address] [facility], [place], [address], [place] [facility] [place] 04/23/2024 16:04:45 06/24/2024 text/html Patient has [employer] Benefit w/ [employer]BS - we are out of network. Patient prefers staying with us. Pateint had Oticon OPNS1 thru [employer] and has been satisfied with the aids. The aids were over 7 years old and he wanted to replace them with a rechargeable option. Currently wearing Oticon Real 1 miniRITE R #3 R/L 85 receivers - #10 single vent domes in chroma beige dispensed 11/11/2023 IVETH PADRON, AUD [address] [facility],[address], [address], [facility] - [facility] [place] 06/24/2024 16:06:41 01/06/2025 text/html Patient has [employer] Benefit w/ [employer] - we are out of network. Patient prefers staying with us. Pateint had Oticon OPNS1 thru [employer] and has been satisfied with the aids. The aids were over 7 years old and he wanted to replace them with a rechargeable option. Currently wearing Oticon Real 1 miniRITE R #3 R/L 85 receivers - #10 single vent domes in chroma beige dispensed 11/11/2023 IVETH PADRON, AUD [address] [facility],[address], [address], [place] - [facility] 01/06/2025 15:49:08 01/25/2025 text/html Hx of chronic na brneda congestion/sneezing. Mostly controlled with oral antihistamines and occasional use of nasal steroids. He is interested in possible immunotherapy. He has multiple medical problems including cognitive impairment, septal deviation, reflux and possible asthma/COPD. STEVEN MERLOS MD [address] [place] [address], [address], [facility] - [facility] 01/25/2025 14:17:31
--- OUTSIDE RECORDS SUMMARY | 2025-04-07 12:41 | XMS_ITS | Clinical Summary ---
Author Organization [facility] [address] [facility] Address [address] [place] [place] [address] Phone Care Team Providers Care Cassandra Consultant Name Role Phone Reji Elizalde Primary Care Provider [phone] Allergies Active Allergy Reactions Criticality Noted Date Comments Ciprofloxacin Itching 09/30/2018 Got iv And got itching in arm Levofloxacin 02/03/2023 Sulfamethoxazole-Trimethoprim Rash 2017 Medications albuterol HFA (PROAIR HFA ; PROVENTIL HFA ; VENTOLIN HFA) 90 mcg/actuation inhaler Inhale 2 puffs by mouth. 10/03/19 24 Active escitalopram (LEXAPRO) 5 mg tablet Take 1 tablet (5 mg total) by mouth 1 (one) time each day. 10/03/19 24 Active loratadine (CLARITIN) 10 mg tablet Take 1 tablet (10 mg total) by mouth 1 (one) time each day. 10/03/19 24 Active sertraline (ZOLOFT) 25 mg tablet 1 tablet daily 03/17/20 23 Active fluticasone propionate (FLONASE) 50 mcg/actuation nasal spray Administer 2 sprays into affected nostril(s). 02/04/20 23 Active brimonidine (ALPHAGAN) 0.2 % ophthalmic solution 03/06/20 22 Active tamsulosin (FLOMAX) 0.4 mg 24 hr capsule Take 1 capsule (0.4 mg total) by mouth 1 (one) time each day. 90 capsule 3 10/06/19 25 Active losartan (COZAAR) 50 mg tablet Take 1 tablet (50 mg total) by mouth 1 (one) time each day. 90 tablet 3 10/06/19 25 Active simethicone (Mylanta Gas) 125 mg chewable tablet Chew 1 tablet (125 mg total) every 6 (six) hours if needed for flatulence. 40 tablet 3 10/06/19 25 Active memantine (Namenda) 5 mg tabletIndications: Routine general medical examination at a health care facility,Primary hypertension,Scree walt for malignant neoplasm of colon,Acute nonintractable headache, unspecified headache type,Pure hypercholesterolem ia,Gastroesophagea l reflux disease without esophagitis,Mild cognitive impairment,Fatty liver,Obstructive sleep apnea,Hypertrophy of prostate without urinary obstruction,Memory loss,Depression, unspecified depression type Take 1 tablet (5 mg total) by mouth at bedtime. 90 each 3 10/06/19 25 Active calcium carbonate-cholecal ciferol (Calcium 500 + D) 500 mg-10 mcg (400 unit) per tablet Take 1 tablet by mouth 2 (two) times a day. 60 tablet 11 10/10/19 25 Active rivastigmine (EXELON) 9.5 mg/24 hour APPLY 1 PATCH ONTO THE SKIN EVERY DAY 90 patch 3 11/03/19 25 Active polyethylene glycol (Golytely) 236-22.74-6.74 -5.86 gram solution Take 4L by mouth once for one dose. May substitue any PEG. Starting at 6PM the night before your procedure drink 1 8oz glasses at your own pace until you complete half of the gallon. Finish 2nd half of the gallon 5 hours before your procedure. 4000 mL 02/04/20 25 Active bisacodyL (DULCOLAX) 5 mg EC tablet Take 2 tablets by mouth right before beginning bowel prep. See instructions provided by the office 2 tablet 02/04/20 25 Active simvastatin (ZOCOR) 20 mg tablet Take 1 tablet (20 mg total) by mouth at bedtime. 90 tablet 03/07/20 25 Active Active Problems Problem Noted Date Diagnosed Date Mild cognitive impairment 09/10/2021 Overview (12/03/2023): Neuropsych testing 08/13/21 with Rubi Clinosky: mild congnitive impairment, nonamnestic type, 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 Recommend re-trying CPAP, antidepressant, psychotherapy, regular exercise. Obstructive sleep apnea 11/24/2020 Overview (12/03/2023): [facility] Home Sleep Apnea Test: Date 11/18/2020; Wt 150#; BMI 27; HYACINTH (AHI) 8, AI 5; HI 3; Unclassified apneas 0; Obstructive apneas 39; Central apneas 6; Mixed apneas 2; hypopneas 24; average oxygen saturation 95% (lowest 90% without saturations <88% for 5% or more of study) - Obstructive Sleep Apnea - mild; mostly obstructive apneas and hypopneas; without sleep related hypoventilation by 2020 home sleep apnea test. Fatty liver 08/17/2020 Depression 07/30/2020 Memory loss 07/30/2020 Primary osteoarthritis of both hips 04/15/2018 Androgen deficiency 02/29/2016 Overview (12/03/2023): Receives testosterone supplement from urologist Hearing loss, sensorineural, unilateral 01/03/20 12 Hypertension 03/15/2011 Palpitations 02/08/2009 Pure hypercholesterolemia 08/12/2006 Esophageal reflux 08/12/2006 Hernia, ventral 08/12/2006 Hypertrophy of prostate without urinary obstruct ion 08/12/2006 Overview (12/03/2023): TURP Encounters Date Type Department Care Team Description 02/03/2025 Telephone Gastroenterology - [place] [address] [facility] [address] [place] [address] Carmen Winter MD SPECIAL PROCEDURE from Last 3 Months Immunizations Name Administration Dates Next Due Influenza Quadravalent, MDCK , 0.5ml, preservative free (Flucelvax) 6mo and older 10/13/2019,09/28/2018 Influenza Quadravalent, MDCK , 0.5ml, with preservative (Flucelvax) 6mo and older 08/13/2017 Influenza trivalent, 0.5mL ( Fluzone High-dose) 65yo and older 06/04/2023,06/05/2022,06/20/2021,07/26 Influenza trivalent, with pr eservative (Fluzone; Afluria) 6mo and older 10/04/2015,07/17/2014,06/09/2013,06/16,09/16/2011 Pneumococcal conjugate 13 va lent (Prevnar 13, PCV13) 2mo and older 10/04/2015 Pneumococcal polysaccharide 23 valent (Pneumovax 23) 2yo and older 10/13/2019,02/11/2012 Respiratory syncytial virus (RSV), unspecified 04/07/2024 Td Tetanus diptheria (Tdvax) 7yo and older 02/03/2023,04/14/2002 Tdap Tetanus diptheria acell ular pertussis (Boostrix; Adacel) 7yo and older 06/16/2012 Zoster Live 06/09/2013 Surgical History Surgery Date Site/Laterality Comments TURP / TRANSURETHRAL INCISIO N / DRAINAGE PROSTATE PROCEDURE: HISTORICAL TURP COLONOSCOPY 12/14/10 PROCEDURE: HISTORICAL COLONOSCOPY; COMMENT: adenomas and tics; repeat in three years COLONOSCOPY W/ POLYPECTOMY 03/01/14 PROCEDURE: [facility] COLSC FLX W/RMVL OF TUMOR POLYP LESION SNARE TQ; COMMENT: adenoma and tics; repeat in 5 yrs COLONOSCOPY 2019 PROCEDURE: HISTORICAL COLONOSCOPY Medical History Medical History Date Comments Pure hypercholesterolemia 08/12/2006 DX:Pur e hypercholesterolemia Other ventral hernia without mention of obstruction or gangrene 08/12/2006 DX:Other ventral hernia wit hout mention of obstruction or gangrene Hypertrophy of prostate with out urinary obstruction and other lower urinary tract symptoms (LUTS) 08/12/2006 DX:Hypertrophy of prosta te without urinary obstruction and other lower urinary tract symptoms (LUTS) Esophageal reflux 08/12/2006 DX:Esophageal reflux Hypertension 03/15/2011 DX:Hypertension Hearing loss, sensorineural, unilateral 01/03/2012 DX:Hearing loss, sensorineur al, unilateral History of colonic polyps 08/08/2014 DX:His tory of colonic polyps Mild cognitive impairment 09/10/2021 DX:Mil kip cognitive impairment; COMMENT: Neuropsych testing 08/13/21 with Rubi Clinosky: mild congnitive impairment, nonamnestic type, 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 Recommend re-trying CPAP, antidepressant, psychotherapy, regular exercise. Family History Medical History Relation Name Comments Cataracts Father Cataracts Mother Diabetes Uncle mat cancer, ? testi cular Blindness Neg Hx Glaucoma Neg Hx Macular degeneration Neg Hx Strabismus Neg Hx Relation Name Status Comments Brother Alive healthy also arroy[place] s 1/2 sib Father accident Mother Alive hyperlipidemia Uncle mat Alive Social History Tobacco Use Types Packs/Day Years Used Date Smoking Tobacco: Former Cigarettes Q uit: 09/29/1979 Smokeless Tobacco: Never Tobacco Cessation:Counseling Given: Not Answered Alcohol Use Standard Drinks/Week Comments Yes 0 (1 standard drink = 0.6 oz pur e alcohol) Sex and Gender Information Value Date Recorded Sex Assigned at Not on file Legal Sex Male 11:27 AM EST Gender Identity Not on file Sexual Orientation Not on file Obstetrics History Last Filed Vital Signs Vital Sign Reading Time Taken Comments Blood Pressure 105/64 10/06/2024 11:17 AM EST Pulse 65 10/06/2024 11:17 AM EST Temperature 36.7 C (98.1 F) 10/06/2024 11:17 AM EST Respiratory Rate 14 10/06/2024 11:17 AM EST Oxygen Saturation - - Inhaled Oxygen Concentration - - Weight 71 kg (156 lb 9.6 oz) 10/06/2024 11:17 AM EST Height 160 cm (5' 3 ) 10/06/2024 11:17 AM EST Body Mass Index 27.74 10/06/2024 11:17 AM EST Plan of Treatment Upcoming Encounters Date Type Department Care Team (Late st Contact Info) Description 05/04/2025 1:00 PM EDT Appointment [facility] Endoscopy [address] [place] [id number] Carmen Winter MD [address] [address] 07/29/2025 3:30 PM EDT Office Visit Adult Medicine [facility] [address] [place] [address] Reji Elizalde PA [address] [place], [place] Health Maintenance Due Date Last Done Comments Hepatitis A Vaccines (1 of 2 - Risk 2-dose series) 1969 Hepatitis B Vaccines (1 of 3 - Risk 3-dose series) 2010 Social Influencers of Health Screening 09/06/2022 Colorectal Cancer Screening: Colonoscopy 09/01/2024 09/01/2019 COVID-19 Vaccine ( season) 2024 06/24/2024, 12/25/2021, 01/06/2021, Additional history exists RSV Immunization Adult Patients (1 - 1-dose 75+ series) 2025 04/07/2024 Influenza Vaccine (#1) 2025 , 06/05/2022, 06/20/2021, Additional history exists Depression Screening 10/06/2025 10/06/2024, 02/04/20 23 Falls Risk Assessment 10/06/2025 10/06/2024, 023 Medicare Annual Wellness Visit 10/06/2025 10/06/2024 Hypertension/CHF/CAD Annual BMP Blood Test 10/08/2025 10/08/2024, 04/29/2024 Cholesterol Screening (Lipid Panel) 10/08/2029 10/08/2024, 04/29/2024, 06/05/2023 DTaP,Tdap,and Td Vaccines (4 - Td or Tdap) 02/03/2033 02/03/2023, 06/16/2012, 04/14/2002 Hepatitis C Screening Addressed 06/09/2013 Overri dden with the intention of not completing the topic Pneumococcal Vaccine: 50+ Years Completed 10/13/2019, 10/04/2015, 02/11/2012 RSV Immunization Patients Under 20 months Aged Out 04/07/2024 No longer eligible based on patient's age to complete this topic Zoster Vaccines Completed 06/24/2024, 03/29, 06/09/2013 Abdominal Aortic Aneurysm (AAA) Screen Discontinued HIB Vaccines Aged Out No longer eligi ble based on patient's age to complete this topic HPV Vaccines Aged Out No longer eligi ble based on patient's age to complete this topic IPV Vaccines Aged Out No longer eligi ble based on patient's age to complete this topic MMR Vaccines Aged Out No longer eligi ble based on patient's age to complete this topic Meningococcal ACWY Vaccine Aged Out N o longer eligible based on patient's age to complete this topic Meningococcal B Vaccine Aged Out No l onger eligible based on patient's age to complete this topic Varicella Vaccines Aged Out No longer eligible based on patient's age to complete this topic Procedures Procedure Name Priority Date/Time Associated Diagnosis Comments COMPREHENSIVE METABOLIC PANEL Routine 10/08/2024 3:41 PM EST Routine general medical examination at a [facility] care facility Primary hypertension Screening for malignant neoplasm of colon Acute nonintractable headache, unspecified headache type Pure hypercholesterolemia Gastroesophageal reflux disease without esophagitis Mild cognitive impairment Fatty liver Obstructive sleep apnea Hypertrophy of prostate without urinary obstruction Memory loss Depression, unspecified depression type LIPID PANEL WITH REFLEX TO DIRECT LDL Routine 10/08/2024 3:41 PM EST Routine general medical examination at a [facility] facility Primary hypertension Screening for malignant neoplasm of colon Acute nonintractable headache, unspecified headache type Pure hypercholesterolemia Gastroesophageal reflux disease without esophagitis Mild cognitive impairment Fatty liver Obstructive sleep apnea Hypertrophy of prostate without urinary obstruction Memory loss Depression, unspecified depression type COLONOSCOPY Routine 09/01/2019 from Last 3 Months or Most Recently Relevant to Health Maintenance Results * (ABNORMAL) Lipid panel with reflex to direct LDL (10/08/2024 3:41 PM EST) Cholesterol 146 0 - 200 mg/dL LAB CHEMISTRY METHOD 10/09/2024 12:24 AM EST [facility] Triglycerides 192(H) 0 - 150 mg/dL LAB CHEMISTRY METHOD 10/09/2024 12:24 AM EST [facility] HDL 35(L) >=40 mg/dL LAB CHEMISTRY METHOD 10/09/2024 12:24 AM EST [facility] LDL Calculated 73 0 - 100 mg/dL LAB CHEMISTRY METHOD 10/09/2024 12:24 AM EST [facility] VLDL Cholesterol Aristides 38.4 mg/dL LAB CHEMISTRY METHOD 10/09/2024 12:24 AM [facility] Non HDL Chol. (LDL+VLDL) 111 <145 mg/dL LAB CHEMISTRY METHOD 10/09/2024 12:24 AM [facility] Chol/HDL Ratio 4.2 0.0 - 4.4 LAB CHEMISTRY METHOD 10/09/2024 12:24 AM [facility] Blood Venous blood specimen / Unknown Venipuncture / Unknown 10/08/2024 3:41 PM EST 10/08/2024 3:41 PM EST Reji LUDWIG LAB BLOOD ORDERABLES Taylor rowell Result [facility] [address] [place] [address], [place] [phone] * (ABNORMAL) Comprehensive metabolic panel (10/08/2024 3:41 PM EST) Sodium 139 133 - 145 mmol/L LAB CHEMISTRY METHOD 10/09/2024 12:24 AM [facility] Potassium 4.1 3.5 - 5.5 mmol/L LAB CHEMISTRY METHOD 10/09/2024 12:24 AM [facility] Chloride 109 96 - 110 mmol/L LAB CHEMISTRY METHOD 10/09/2024 12:24 AM [facility] CO2 27 21 - 32 mmol/L LAB CHEMISTRY METHOD 10/09/2024 12:24 AM [facility] Anion Gap 3 3 - 11 LAB CHEMISTRY METHOD 10/09/2024 12:24 AM [facility] Glucose 99 70 - 100 mg/dL LAB CHEMISTRY METHOD 10/09/2024 12:24 AM [facility] BUN 16 5 - 25 mg/dL LAB CHEMISTRY METHOD 10/09/2024 12:24 AM [facility] Creatinine 1.53(H) 0.70 - 1.30 mg/dL LAB CHEMISTRY METHOD 10/09/2024 12:24 AM [facility] eGFR 47(L) >=60 mL/min/1. 73m2 LAB CHEMISTRY METHOD 10/09/2024 12:24 AM [facility] Comment:Calculation based on the Chronic Kidney Disease Epidemiology Collaboration (CKD-EPI) equation refit without adjustment for race. BUN/Creatinine Ratio 10.5 LAB CHEMISTRY METHOD 10/09/2024 12:24 AM [facility] Calcium 8.0(L) 8.5 - 10.5 mg/dL LAB CHEMISTRY METHOD 10/09/2024 12:24 AM [facility] AST (SGOT) 33 10 - 42 unit/L LAB CHEMISTRY METHOD 10/09/2024 12:24 AM [facility] ALT (SGPT) 59 10 - 60 unit/L LAB CHEMISTRY METHOD 10/09/2024 12:24 AM [facility] Alkaline Phosphatase 95 42 - 121 unit/L LAB CHEMISTRY METHOD 10/09/2024 12:24 AM [facility] Total Protein 6.8 6.0 - 8.0 g/dL LAB CHEMISTRY METHOD 10/09/2024 12:24 AM [facility] Albumin 4.1 3.2 - 5.0 g/dL LAB CHEMISTRY METHOD 10/09/2024 12:24 AM [facility] Total Bilirubin 1.2 0.0 - 1.4 mg/dL LAB CHEMISTRY METHOD 10/09/2024 12:24 AM [facility] Blood Venous blood specimen / Unknown Venipuncture / Unknown 10/08/2024 3:41 PM EST 10/08/2024 3:41 PM EST us Reji LUDWIG LAB BLOOD ORDERABLES Taylor l Result [facility] [address] [place] [address], * Colonoscopy (09/01/2019) Colonoscopy Negative Anatomical Region Laterality Modality Other us Historical Provider MD HEALTH MAINTENANCE Final Result from Last 3 Months or Most Recently Relevant to Health Maintenance Insurance [employer] MED[employer]ARE [employer]VANTAGE Care Teams Cassandra Consultant Relationship Specialty Start Date End Date Reji Elizalde PA [address] [place] [address] PCP - General Internal Medicine 06/15/21
--- NOTE | 2025-04-07 12:52 | A.OFFVIS_ITS ---
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 B12 and TSH were normal. A neuropsychological test in July of 2024 revealed mild cognitive disorder with no significant behavioral issues. He was taking sertraline 50 mg a day and was wondering if he could stop it. He has not noted any significant change in his overall problem. [facility] Medical History (Updated 04/07/25 @ 12:55 by Marky Brarios MD) HLD (hyperlipidemia) HTN (hypertension) Stress Migraine Depression with anxiety Insomnia POOJA (obstructive sleep apnea) Mild cognitive impairment Elevated prostate specific antigen [PSA] BPH (benign prostatic hyperplasia) Increased prostate specific antigen (PSA) velocity Social History Household Members: Spouse Review of Systems Const Details: Constitutional:?No fever, chills, fatigue, weight loss, or night sweats. HEENT:?No headache, vision changes, hearing loss, nasal congestion, sore throat. Neurological:? Complaint of forgetfulness Psychiatric:?No anxiety, depression, mood swings, sleep disturbance, or hallucinations. Endocrine:?No heat/cold intolerance, polydipsia, polyuria, or hair/skin changes. Hematologic/Lymphatic:?No easy bruising, bleeding, or lymphadenopathy. Integumentary (Skin):?No rash, lesions, itching, or color changes. ? Physical Exam Neuro Other: Mental Status: Alert and oriented to person, place, and time. Cranial Nerves: CN II: Visual chaudhry full to confrontation, visual acuity intact. CN III, IV, : Pupils equal, round, reactive to light and accommodation. Extraocular movements are normal. CN V: Facial sensation is normal. CN VII: Facial movements symmetrical. CN VIII: Hearing intact to bedside conversation is normal. CN IX, X: Palate elevates symmetrically. CN XI: Shoulder shrug and head turn symmetrical. CN XII: Tongue midline without atrophy or fasciculations. Extrapyramidal: Full facial expressions and blinking. No rigidity. Movements are appropriate with no tremor or abnormality. Speech: Normal; no dysarthria or tremor. Assessment & Plan Assessment & Plan (1) Mild cognitive impairment: Comment: Neuropsychological eval at off in Jul 2024: [facility]. 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 Recommendations: He can tried decreasing sertraline to 25 mg a day. Otherwise he should stay active. His last neuropsychological test was done in July of 2024 and I would arrange another one in July of 2025 and then follow-up. Orders: Referrals Neuropsychiatry Referral G31.84 - Mild cognitive impairment of uncertain or unknown etiology Coding Level of Care Code Est Pt Level 4 (59882) Diagnoses Mild cognitive impairment G31.84
== END 2025-04-07 13:05 | disposition home or self-care (01) ==
LOC: HO.HSM 12:37
PROVIDERS: PCP Internal Medicine; Visit Provider Psychiatry & Neurology Neurology
DX: G31.84 Mild cognitive impairment of uncertain or unknown etiology (principal)
CPT/HCPCS: 99214

== ENCOUNTER → 2025-04-07 12:36 | Outpatient (BNVA) | payer MEDICARE, SELFPAY | PROVIDERS: PCP Internal Medicine; Visit Provider Psychiatry & Neurology Neurology | DX: G31.84 Mild cognitive impairment of uncertain or unknown etiology (principal) | CPT/HCPCS: 99212 ==

== ENCOUNTER 2025-05-24 14:08 | Outpatient (REF) | payer MEDICARE, SELFPAY ==
--- OUTSIDE RECORDS SUMMARY | 2024-10-19 10:00 | XMS_ITS ---
Author Name [facility] [facility] [place] Address [address] [place] [id number] Care Team Providers Care Head Bellhop Captain Name Role Phone TERRANCE NUNES Primary Care Provider Unavaila ble Insurance Providers: All historical and current Section Date Range: From patient's date of to the date document was created. This section includes the names of all active insurance providers for the patient. Insurance Provider Type of Coverage Plan Name Start of Policy Coverage End of Policy Coverage Group Number Member ID Insurance Provider's Telephone Number Policy Nguyen's Name Patient's Relationship to Policy Nguyen [employer] [facility] ([place]) MEDICARE ADVANTAGE [facility] (WNR) Sep 29, 2024 [id number] [phone] JEROME SHAIKH PATIENT Selected Encounter This section includes the information on record at [place] for the Encounter. Date/Time Encounter Type Encounter Description Reason Pro vider Source Oct 19, 2024 02:00 PM Outpatient Encounter PRIMARY CARE/MEDICINE I[facility] Encounter Template Text not used by [place] Vital Signs: All taken on the encounter date This section contains inpatient and outpatient Vital Signs collected on the date of the Encounter. Date/Time Temperature Pulse Blood Pressure Respiratory Rate SP02 Pain Height Weight Body Mass Index Source Oct 19, 2024 03:10 PM 98 64 149/81 16 96 0 63 169 30 [facility] [place] [facility] Social History: Smoking Status (Most current) and Tobacco Use (All prior to encounter date) This section includes the most current, and the historical, smoking and tobacco- related health factors from the [place] facility where the Encounter took place. Current Smoking Status This section includes the most current smoking, or tobacco-related health factor, from the [place] facility where the Encounter took place. Date/Time Current Smoking Status Comment Balaji martinez Oct 19, 2024 03:00 PM VA-TOBACCO USE FOR CELESTINA CIGARETTES [facility] Tobacco Use History This section includes a history of the smoking, or tobacco-related health factors, that were collected on or before the date of the Encounter. The data comes from the [place] facility where the Encounter took place. Date/Time Smoking Status/Tobacco Use Comment Edgardo ledezma Oct 19, 2024 03:00 PM VA-TOBACCO USE FOR CELESTINA CIGARETTES [facility] Encounter Notes: All associated encounter notes This section contains the clinical notes associated to the Encounter. Date/Time Encounter Note(s) Provider Source Oct 19, 2024 02:40 PM CLERICAL NOTE: LOCAL TITLE: APPOINTMENT NO SHOW STANDARD TITLE: CLERICAL NOTE DATE OF NOTE: OCT 19, 2024@14:40 ENTRY DATE: OCT 19, 2024@14:41:04 AUTHOR: LAWRENCE MICHAUD EXP COSIGNER: URGENCY: STATUS: COMPLETED APPOINTMENT NO SHOW Has ADDENDA Patient Name: PHILLIP SHAIKH Patient SSN: [id number] Date and time of Appointment No show : 10/19/24 14:00 Primary care PATIENT PHONE - PHONE NUMBER [CELLULAR] - NONE FOUND Patient's medical record was reviewed. Follow-up actions were determined and initiated: Please check/complete as applies: [ ]Telephoned Directly [ ]Re-scheduled for next available appt [X]Sent a N0-show letter ( must call for appointment) [ ]Other (Emergent/Overbook, etc.): Additional Comments: None Future Clinic Visits No data available /williams/ Lawrence Michaud MD Staff Physician Signed: 10/19/2024 14:41 10/19/2024 ADDENDUM STATUS: COMPLETED This note entered in error. /williams/ Lawrence Michaud MD Staff Physician Signed: 10/19/2024 14:44 LAWRENCE MICHAUD [facility]
--- OUTSIDE RECORDS SUMMARY | 2024-10-19 11:00 | XMS_ITS ---
Author Name [facility] Organization [facility] [place] Address [address] [place], [place] [address] Care Team Providers Care Commercial Counsel Name Role Phone NINO SANTOYO Primary Care Provider Denton flores Insurance Providers: All historical and current Section [...] Name Patient's Relationship to Policy Nguyen [employer] [facility] (WNR) MEDICARE ADVANTAGE [facility] (W[facility]) Sep 29, 2024 [id number] JEROME SHAIKH [facility] PATIENT Selected Encounter This section includes the information on record at [place] for the Encounter. Date/Time Encounter Type Encounter Description Reason Provider Source Oct 19, 2024 03:00 PM OFFICE O/P NEW LOW 30 MIN PRIMARY CARE/MEDICINE ICD-10-CM I10 Essential (primary) hypertension MANJU,GUICHO Melo [facility] Encounter Template Text not used by [place] Assessments - Encounter Diagnoses This section includes the primary and secondary diagnoses documented for the Encounter. Date/Time Primary/Secondary Diagnosis Diagnosis Name Provider Source Oct 22, 2024 09:51 AM PRIMARY Essential (primary) hypertension SANTOYO,WILL ROM Melo [facility] [place] [facility] Oct 22, 2024 09:51 AM SECONDARY Benign prostatic hyperplasia without lower urinry tract symp SANTOYO,WILL ROM Melo [facility] [place] [facility] Oct 22, 2024 09:51 AM SECONDARY Hyperlipidemia, unspecified SANTOYO,WILL ROM [facility] [place] [facility] Oct 22, 2024 09:51 AM SECONDARY Oth symptoms and signs w cognitive functions and awareness GUICHO SANTOYO Kameron [facility] Vital Signs: All taken on the encounter date This section contains inpatient and outpatient Vital Signs collected on the date of the Encounter. Date/Time Temperature Pulse Blood Pressure Respiratory Rate SP02 Pain Height Weight Body Mass Index Source Oct 19, 2024 03:10 PM 98 64 149/81 16 96 0 63 169 30 [facility] Social History: Smoking Status (Most current) and Tobacco Use (All prior to encounter date) This section includes the most current, and the historical, smoking and tobacco- related health factors from the [place] facility where the Encounter took place. Current Smoking Status This section includes the most current smoking, or tobacco-related health factor, from the [place] facility where the Encounter took place. Date/Time Current Smoking Status Comment Balaji yurandi Oct 19, 2024 03:00 PM VA-TOBACCO USE FOR CELESTINA CIGARETTES [facility] Tobacco Use History This section includes a history of the smoking, or tobacco-related health factors, that were collected on or before the date of the Encounter. The data comes from the [place] facility where the Encounter took place. Date/Time Smoking Status/Tobacco Use Comment F acsarah Oct 19, 2024 03:00 PM VA-TOBACCO USE FOR CELESTINA CIGARETTES [facility] Encounter Notes: All associated encounter notes This section contains the clinical notes associated to the Encounter. Date/Time Encounter Note(s) Provider Source Oct 19, 2024 03:08 PM PREVENTIVE MEDICINE NURSING NOTE: LOCAL TITLE: CLINICAL REMINDERS/NURSING STANDARD TITLE: PREVENTIVE MEDICINE NURSING NOTE DATE OF NOTE: OCT 19, 2024@15:08 ENTRY DATE: OCT 19, 2024@15:08:10 AUTHOR: FORTUNATO POWELL EXP COSIGNER: URGENCY: STATUS: COMPLETED Suicide Screen: C-SSRS Screening [place] Suicide Severity Rating Scale (C-SSRS) screener 1. Over the past month, have you wished you were or wished you could go to sleep and not wake up? No 2. Over the past month, have you had any actual thoughts of killing yourself? No 3. Over the past month, have you been thinking about how you might do this? Response not required due to responses to other questions. 4. Over the past month, have you had these thoughts and had some intention of acting on them? Response not required due to responses to other questions. 5. Over the past month, have you started to work out or worked out the details of how to kill yourself? Response not required due to responses to other questions. 6. If yes, at any time in the past month did you intend to carry out this plan? Response not required due to responses to other questions. 7. In your lifetime, have you ever done anything, started to do anything, or prepared to do anything to end your life (for example, collected pills, obtained a gun, gave away valuables, went to the roof but didn't jump)? No 8. If YES, was this within the past 3 months? Response not required due to responses to other questions. Homelessness/Food Insecurity Screen: In the past 2 months, have you been living in stable housing that you own, rent, or stay in as part of a household? Yes - Living in stable housing. Are you worried or concerned that in the next 2 months you may NOT have stable housing that you own, rent, or stay in as part of a household? No - Not worried about housing near future The [place] reports the following: Within the past 12 months, you worried whether your food would run out before you got money to buy more. Never true Within the past 12 months, the food you bought just didn't last and you didn't have money to get more. Never true Depression Screening: Perform PHQ-2 A PHQ-2 screen was performed. The score was 0 which is a negative screen for depression. Over the past two weeks, how often have you been bothered by the following problems? 1. Little interest or pleasure in doing things Not at all 2. Feeling down, depressed, or hopeless Not at all Tobacco Use Screening: The patient is a former cigarette smoker. Quit smoking GREATER THAN OR EQUAL to 15 years. The patient has never used other types of tobacco. Influenza Immunization: The patient has received the seasonal influenza vaccine for the current season at another location. Documented: INFLUENZA, UNSPECIFIED FORMULATION Historical Date Administered: Jul 05, 2024 Series: Complete Outside Location: Outside Healthcare Provider Information Source: FROM PATIENT'S RECALL Alcohol Use Screen (AUDIT-C): Alcohol Screen: SCREEN FOR ALCOHOL (AUDIT-C) An alcohol screening test (AUDIT-C) was negative (score=1). 1. How often did you have a drink containing alcohol in the past year? Consider a drink to be a 12 ounce can or bottle of regular beer, 8 ounces of malt liquor, a 5 ounce glass of table wine, or a 1.5 ounce shot of liquor (like scotch, gin, or vodka). Monthly or less 2. How many drinks containing alcohol did you have on a typical day when you were drinking in the past year? One or two drinks 3. How often did you have six or more drinks on one occasion in the past year? Never /es/ FORTUNATO POWELL LPN License Practical Nurse Signed: 10/19/2024 15:10 FORTUNATO POWELL [place] [facility] [place] [facility] Oct 19, 2024 03:00 PM PRIMARY CARE NURSE PRACTITIONER OUTPATIENT NOTE: LOCAL TITLE: NURSE PRACTITIONER OUTPATIENT NOTE STANDARD TITLE: PRIMARY CARE NURSE PRACTITIONER OUTPATIENT NOTE DATE OF NOTE: OCT 19, 2024@15:00 ENTRY DATE: OCT 22, 2024@09:45:25 AUTHOR: NINO SANTOYO COSIGNER: URGENCY: STATUS: COMPLETED Chief complaint: Patient is a 74 year old [place]. HPI: Pleasant male [place] here with his to [facility]. He is closely followed in the community and for now plans to maintain community care. PCP - Livan Roque Neuro - Dr Tushar Max Urology - Dr Rowe Allergies: LEVAQUIN, SCALLOPS The following VA and Non-VA meds were reconciled with patient. The patient was educated on the use of the medications including indication and side effects. Active and Recently Outpatient Medications (excluding Supplies): Active Non-VA Medications Status === 1) Non-VA ALBUTEROL 90MCG (CFC-F) 200D ORAL INHL 2 PUFFS BY ACTIVE MOUTH EVERY 4 HOURS NEEDED Indication: FOR BRONCHOSPASM 2) Non-VA CALCIUM 250MG/VITAMIN D 125 UNT TAB 2 TABLETS BY ACTIVE MOUTH TWICE DAILY Indication: FOR CALCIUM SUPPLEMENT 3) Non-VA FINASTERIDE 5MG TAB 5MG BY MOUTH ONCE DAILY ACTIVE Indication: FOR ENLARGED PROSTATE 4) Non-VA FLUTICASONE PROP 50MCG 120D NASAL INHL 2 SPRAYS INTO ACTIVE EACH NOSTRIL ONCE DAILY Indication: FOR NASAL IRRITATION/INFLAMMATION 5) Non-VA LOSARTAN 50MG TAB 50MG BY MOUTH ONCE DAILY ACTIVE Indication: FOR HIGH BLOOD PRESSURE 6) Non-VA MEMANTINE TAB 5MG BY MOUTH ONCE DAILY ACTIVE Indication: dementia 7) Non-VA SERTRALINE HCL 100MG TAB 50MG BY MOUTH ONCE DAILY ACTIVE Indication: FOR MAJOR DEPRESSIVE DISORDER 8) Non-VA SIMVASTATIN 40MG TAB 20MG BY MOUTH ONCE DAILY ACTIVE Indication: FOR HIGH CHOLESTEROL 9) Non-VA TAMSULOSIN HCL 0.4MG CAP 0.8MG BY MOUTH AT BEDTIME ACTIVE Indication: FOR ENLARGED PROSTATE Review of Systems: Constitutional: (-)for Fevers, chills, weakness, nights sweats On examination: 98 F [36.7 C] (10/19/2024 15:10)149/81 (10/19/2024 15:10)64 (10/19/2024 15:10)16 (10/19/2024 15:10)0 (10/19/2024 15:10)BMI: 30.0169 lb [76.66 kg] (10/19/2024 15:10) is alert and oriented X3 Eyes:No scleral icterus, lids normal, Pupils equal,round and reactive to light HEENT: External without scars, lesions or masses, TM's without erythema or perforations, Oropharynx without erythema or exudates or worrisome lesions Neck: supple without masses, trachea midline, ln not palpable, no thyromegaly Cardiovasc: 2plus carotids without bruits, no JVD Heart Reguler rate and rhythm NL S1S2 no S3 or murmur Respiration: Normal respiratory effort, lungs clear ABD: Benign normal active bowel sounds no HSM no rebound or referred pain EXT: no clubbing, edema, or cyanosis All diagnostics from past month were reviewed with patient. Assessment/plan: Active problems - Computerized Problem List is the source for the followin. HTN - Hypertension ([facility] [id number]) - repeat 136/78 2. Hyperlipidemia ([facility] [id number]) - taking statin 3. Benign Prostatic Hypertrophy without Outflow Obstruction ([facility] [id number]) - asx on tamuslosin. 4. Cognitive decline - stable, maintains neuro follow up. Today I spent 40 minutes on some or all of the following: chart review, history, physical examination, treatment planning, education and counseling of the patient/family/care transition manager, placing orders, communicating with other health care providers, completing health and wellness screenings (see below) and documentation in the electronic health record. Follow up visit in 6 mos. Toxic Exposure Screening: The /caregiver was asked if they believe the experienced any toxic exposure(s), such as Airborne Hazards and Open Burn Pit, [place] War related exposures, Agent [place], Radiation, contaminated water at [place] or other such exposures, while serving in the Armed [employer] 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 The [place]/caregiver was informed that we will continue to ask this screening question every 5 years. They can contact their provider/healthcare team if they have concerns about exposures and would like to be screened sooner. Printed information was offered and provided if desired. PTSD Screening: PC-PTSD-5 A PTSD screening test (PC-PTSD-5) was negative (score=0). IN THE PAST MONTH, have you ever had any experience that was so frightening, horrible or traumatic. For example: A serious accident or fire a physical or sexual assault or abuse An earthquake or flood A war Seeing someone be killed or seriously injured Having a loved one through homicide or suicide 1. Have you ever experienced this kind of event? YES 2. Had nightmares about the event(s) or thought about the event(s) when you did not want to? NO 3. Tried hard not to think about the event(s) or went out of your way to avoid situations that reminded you of the event(s)? NO 4. Been constantly on guard, watchful, or easily startled? NO 5. [place] numb or detached from people, activities, or your surroundings? NO 6. [place] guilty or unable to stop blaming yourself or others for the event(s) or any problems the event(s) may have caused? NO HTN Assess for Elevated BP>=140/90: Repeat blood pressure: 136/78 The patient's blood pressure is usually adequately controlled. No medication changes are indicated at this time. Sexual Orientation: The patient thinks of their sexual orientation as: Straight or Heterosexual MST Screening: Patient denies experiencing sexual trauma (MST). Medication Reconciliation: Outpatient: Has the patient been taking medications as documented in the EMLR? YES: The patient has been taking medications as documented in the EMLR. Essential Medication List for Review used to complete this medication reconciliation. INCLUDED IN THIS LIST: Alphabetical list of active outpatient prescriptions dispensed from this [place] (local) and dispensed from another [place] or [facility]D facility (remote) as well as inpatient orders (local, pending and active), local clinic medications, locally documented non-VA medications, and local prescriptions that have or been discontinued in the past 90 days. - All changes in medications, including all non-VA/Herbal/OTC medications were entered into CPRS. - If there were any medications the patient should no longer take, they were discontinued. - The patient/caregiver was instructed to update this list, discard old lists, and take this list to the next appointment, whether with a VA or non-VA provider. /williams/ Nino Santoyo DNP, BATTING MACHINE OPERATOR INSULATION-BC, CNL Primary Care Nurse Practitioner Signed: 10/22/2024 09:51 NINO SANTOYO [place] [facility]
--- OUTSIDE RECORDS SUMMARY | 2025-04-29 10:30 | XMS_ITS ---
Author Name [facility] [place] Organization [facility] [place] Address [address] [place], [place] [id number] Care Team Providers Care Stave Cutting Supervisor Name Role Phone NINO SANTOYO Primary Care [...] Name Patient's Relationship to Policy Nguyen [employer] [facility] (WNR) MEDICARE ADVANTAGE [facility] (WNR) Sep 29, 2024 [id number] [phone] JEROME SHAIKH [facility] PATIENT Selected Encounter This section includes the information on record at [place] for the Encounter. Date/Time Encounter Type Encounter Description Reason Provider Source Apr 29, 2025 02:30 PM OFFICE O/P EST HI 40 MIN PRIMARY CARE/MEDICINE ICD-10-CM I10 Essential (primary) hypertension GUICHO SANTOYO [place] Encounter Template Text not used by [place] Assessments - Encounter Diagnoses This section includes the primary and secondary diagnoses documented for the Encounter. Date/Time Primary/Secondary Diagnosis Diagnosis Name Provider Source Apr 29, 2025 02:44 PM PRIMARY Essential (primary) hypertension GUICHO SANTOYO [place] [facility] [place] [facility] Apr 29, 2025 02:44 PM SECONDARY Abnormal results of liver function studies GUICHO SANTOYO [place] [facility] [place] [facility] Apr 29, 2025 02:44 PM SECONDARY Hyperkalemia GUICHO SANTOYO [place] [facility] [place] [facility] Apr 29, 2025 02:44 PM SECONDARY Hyperlipidemia, unspecified GUICHO SANTOYO [facility] Apr 29, 2025 02:44 PM SECONDARY 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 Radiology Reports and Pathology Reports are provided separately, in subsequent sections. Lab Results This section contains the Chemistry/Hematology Results that were resulted 30 days before or 30 daysafter the date of the Encounter. Date/Time Source Result Type Result - Unit Interpretation Reference Range Specimen Type Comment Apr 11, 2025 12:45 PM [facility] CBC BLOOD Specimen Type: BLOOD No comment entered. Ordering Provider: NINO SANTOYO Report Released Date/Time: Apr 04, 2025 03:06 PM Reporting Lab: [address] [address] Performing Lab: [address] [address] WBC 8.86 10*3/uL 4.50-11.00 RBC 4.94 10*6/uL 4.23-5.66 HGB 16.0 g/dL 12.8-17 HCT 44.8 39.2-50.4 MCV 90.7 fL 82-99 MCHC 35.7 g/dL H 30.8-35.1 PLT 166 10*3/uL 140-360 MPV 11.2 fL 9.2-12.4 RDW-CV 13.2 12.0-16.0 MCH 32.4 pg 26.2-32.6 Apr 11, 2025 12:45 PM [facility] BASIC METABOLIC PANEL (non-fasting) SERUM Spe cimen Type: SERUM No comment entered. Ordering Provider: NINO SANTOYO Report Released Date/Time: Apr 04, 2025 03:06 PM Reporting Lab: [address] [address] Performing Lab: [address] [address] UREA NITROGEN 24 mg/dL 8-26 GLUCOSE 97 mg/dL 65-100 SODIUM 142 mmol/L 136-145 POTASSIUM 5.4 mmol/L H 3.5-5.1 CHLORIDE 109 mmol/L H 98-107 CO2 27 meq/L 23-31 CALCIUM 8.8 mg/dL 8.8-10 CREATININE, Serum 1.46 mg/dL H 0.72-1.25 eGFR(CKD-EPI 2020) 50 mL/min L >60 Apr 11, 2025 12:45 PM [facility] LIPID PANEL, NON FASTING SERUM Specimen Type: SERUM No comment entered. Ordering Provider: NINO SANTOYO Report Released Date/Time: Apr 04, 2025 03:06 PM Reporting Lab: [address] [address] Performing Lab: [address] [address] CHOLESTEROL 160 mg/dL TRIGLYCERIDE 253 mg/dL H 0-150 LDL calculated 78 mg/dL 0-129 CHOL/HDL 5.2 HDL CHOLESTEROL 31 mg/dL L >40 Apr 11, 2025 12:45 PM [facility] LIVER FUNCTION SERUM Specimen Type: SERUM No comment entered. Ordering Provider: NINO SANTOYO Report Released Date/Time: Apr 04, 2025 03:06 PM Reporting Lab: [address] [address] Performing Lab: [address] [address] PROTEIN,TOTAL 7.0 g/dL 6.4-8.3 ALBUMIN 4.7 g/dL H 3.2-4.6 ALKALINE PHOSPHATASE 82 U/L 40-150 AST 54 U/L H 5-34 ALT 60 U/L H 0-55 BILIRUBIN, TOTAL 1.2 mg/dL 0.2-1.2 BILIRUBIN, DIRECT 0.3 mg/dL 0-0.5 Vital Signs: All taken on the encounter date This section contains inpatient and outpatient Vital Signs collected on the date of the Encounter. Date/Time Temperature Pulse Blood Pressure Respiratory Rate SP02 Pain Height Weight Body Mass Index Source Apr 29, 2025 02:15 PM 98.3 F 70 /min 132/72 mm[Hg] 20 /min 97 % 0 63 in 157 lb 28 [facility] Social History: Smoking Status (Most current) and Tobacco Use (All prior to encounter date) This section includes the most current, and the historical, smoking and tobacco- related health factors from the [place] facility where the Encounter took place. Current Smoking Status This section includes the most current smoking, or tobacco-related health factor, from the [place] facility where the Encounter took place. Date/Time Current Smoking Status Comment Facil ity Oct 19, 2024 03:00 PM VA-TOBACCO USE FOR CELESTINA CIGARETTES [facility] Tobacco Use History This section includes a history of the smoking, or tobacco-related health factors, that were collected on or before the date of the Encounter. The data comes from the [place] facility where the Encounter took place. Date/Time Smoking Status/Tobacco Use Comment F acility Oct 19, 2024 03:00 PM VA-TOBACCO USE FOR CELESTINA CIGARETTES [facility] Encounter Notes: All associated encounter notes This section contains the clinical notes associated to the Encounter. Date/Time Encounter Note(s) Provider Source Apr 29, 2025 02:39 PM PRIMARY CARE NURSE PRACTITIONER OUTPATIENT NOTE: LOCAL TITLE: NURSE PRACTITIONER OUTPATIENT NOTE STANDARD TITLE: PRIMARY CARE NURSE PRACTITIONER OUTPATIENT NOTE DATE OF NOTE: APR 29, 2025@14:39 ENTRY DATE: APR 29, 2025@14:39:06 AUTHOR: NINO SANTOYO COSIGNER: URGENCY: STATUS: COMPLETED Chief complaint: Patient is a 75 year old Ray. HPI: Pleasant male Ray here to follow up. He had labs here notable for elevated potassium, he endorses a daily banana, i suggested he decrease to every other day. Also noted some renal impairment, he reports no prior history and also abnormal LFTs - he does not drink alcohol. I provided him a copy of labs and advised him to review with community PCP. I offered closer follow up, he feels one yr is ok, he agrees to follow up with community PCP on abnormal labs. Allergies: LEVAQUIN, SCALLOPS The following VA and Non-VA meds were reconciled with patient. The patient was educated on the use of the medications including indication and side effects. Active and Recently Outpatient Medications (excluding Supplies): Active Non-VA Medications Status 1) Non-VA ALBUTEROL 90MCG (CFC-F) 200D ORAL INHL 2 PUFFS BY ACTIVE MOUTH EVERY 4 HOURS NEEDED Indication: FOR BRONCHOSPASM 2) Non-VA CALCIUM 250MG/VITAMIN D TAB 2 TABLETS BY MOUTH TWICE ACTIVE DAILY Indication: FOR CALCIUM SUPPLEMENT 3) Non-VA [...] Fevers, chills, weakness, nights sweats On examination: 98.3 F [36.8 C] (04/29/2025 14:15)132/72 (04/29/2025 14:15)70 (04/29/2025 14:15)20 (04/29/2025 14:15)0 (04/29/2025 14:15)BMI: 27.9157 lb [71.21 kg] (04/29/2025 14:15) is alert and oriented X3 Cardiovasc: 2plus carotids without bruits, no JVD [...] source for the followin. HTN - Hypertension ([facility] [id number]) - well controlled. 2. Hyperlipidemia ([facility] [id number]) - trigs up, discussed diet strats Today I spent 40 minutes on some or all of the following: chart review, history, physical examination, treatment planning, education and counseling of the patient/family/health care aide, placing orders, communicating with other health care providers, completing health and wellness screenings (see below) and documentation in the electronic health record. Follow up visit in 12 mos. Medication Reconciliation: Outpatient: Has the patient been taking medications as documented in the EMLR? YES: The patient has been taking medications as documented in the EMLR. Essential Medication List for Review used to complete this medication reconciliation. INCLUDED IN THIS LIST: Alphabetical list of active outpatient prescriptions dispensed from this [place] (local) and dispensed from another [place] or [place] facility (remote) as well as [...] VA or non-VA provider. /williams/ Nino Santoyo [facility], INSTRUMENT INSTALLER-BC, CNL Primary Care Nurse Practitioner Signed: 04/29/2025 14:45 NINO SANTOYO [place] [facility] [place] [facility] Apr 29, 2025 02:31 PM PRIMARY CARE NURSE PRACTITIONER OUTPATIENT NOTE: LOCAL TITLE: NURSE PRACTITIONER OUTPATIENT NOTE STANDARD TITLE: PRIMARY CARE NURSE PRACTITIONER OUTPATIENT NOTE DATE OF NOTE: APR 29, 2025@14:31 ENTRY DATE: APR 29, 2025@14:31:41 AUTHOR: NINO SANTOYO EXP COSIGNER: URGENCY: STATUS: COMPLETED ---- GENERAL CHEMISTRY ---- SERUM Apr 11 Reference 2024 12:45 Units Ranges - GLUCOSE 97 mg/dL 65 - 100 BUN 24 mg/dL 8 - 26 CREATININE 1.46 H mg/dL 0.72 - 1.25 eGFR(IDMS) Ref: >=60 CREAT mg/dL .5 - 1.5 eGFR See Eval Ref: See Eval Sodium 142 mmol/L 136 - 145 K+/Pot 5.4 H mmol/L 3.5 - 5.1 CL 109 H mmol/L 98 - 107 CO2 27 mEq/L 23 - 31 CA 8.8 mg/dL 8.8 - 10 UricAci mg/dL 3.7 - 7.7 NH3/Amm PO4 mg/dL 2.5 - 4.5 T. PROT 7.0 g/dL 6.4 - 8.3 ALBUMIN 4.7 H g/dL 3.2 - 4.6 T BILI 1.2 mg/dL .2 - 1.2 D. BILI 0.3 mg/dL 0 - .5 AST 54 H U/L 5 - 34 ALT 60 H U/L 0 - 55 GGT U/L 0 - 54 ALK MUSHTAQ 82 U/L 40 - 150 AMYLASE U/L 20 - 160 MAG mg/dL 1.6 - 2.6 ACETONE Ref: Neg T3 Total ng/dL 35 - 193 ---- LIPID PANEL ---- SERUM Cotres 14 Reference 2024 12:45 Units Ranges - CHOL 160 mg/dL <7 - 199 TRIG 253 H mg/dL 0 - 150 HDL 31 L mg/dL Ref: >=40 LDL-d mg/dL 0 - 159 LDL 78 mg/dL 0 - 129 CHO/HDL 5.2 /williams/ Nino Santoyo [facility], INSTRUMENT INSTALLER-, CNL Primary Care Nurse Practitioner Signed: 04/29/2025 14:45 NINO SANTOYO [facility] Apr 29, 2025 02:20 PM PREVENTIVE MEDICINE NURSING NOTE: LOCAL TITLE: CLINICAL REMINDERS/NURSING STANDARD TITLE: PREVENTIVE MEDICINE NURSING NOTE DATE OF NOTE: APR 29, 2025@14:20 ENTRY DATE: APR 29, 2025@14:20:54 AUTHOR: ZACHARY BRODERICK COSIGNER: URGENCY: STATUS: COMPLETED Falls & Incontinence Screen: Falls Screen: During the past 12 months, did the patient report any falls? 4. No falls within the past year. Incontinence Screen: During the past 12 months, has the patient has any characteristics of incontinence (ability, voiding, leakage, etc.)? No incontinence. Preferred Language: What is your, or your caregiver's preferred language for healthcare? Preferred Language: Kittitian RHS Screen: RHS Screen Session Format: Face to Face Environmental Check Screening was not completed at this time due to: Another adult present /williams/ Zachary Broderick, Health [employer] MACHINE JOINER CEMENTER,PRIMARY CARE Signed: 04/29/2025 14:22 ZACHARY BRODERICK [facility]
--- OUTSIDE RECORDS SUMMARY | 2025-05-06 06:56 | XMS_ITS | Continuity of Care Document ---
Author Name [facility] Organization [facility] Care Team Providers Care Disk Recordist Name Role Phone [facility] Unavailable Unavailable Problems Combined list of problems from Department of Defense and Veterans Affairs facilities. It does not include entries that were removed or entered in error. Problem Status Onset Date Problem Type Date of Resolution Comments Source Abnormal liver function Active Condition [facility] [place] Allergic rhinitis Active [facility] [place] [facility] Benign Prostatic Hypertrophy without Outflow Obstruction ([facility] [id number]) Active Condition [facility] [place] Cognitive decline Active Condition [facility] [place] [facility] HTN - Hypertension ([facility] [id number]) Active Condition [facility] [place] [facility] Hyperlipidemia ([facility] [id number]) Active Condition [facility] [place] [facility] Diagnosis: ICD-10-CM I10 Essential (primary) hypertension Active Diagnosis [facility] [place] [facility] Diagnosis: ICD-10-CM [...] ATORY (INHAL ATION) ACTIVE TERRANCE NUNES 2024 [facility] [place] [facility] CALCIUM 250MG/VITAM IN D 125UNT TAB TAKE TWO TABLETS BY MOUTH TWICE DAILY ORAL ACTIVE TERRANCE NUNES 2024 [facility] FINASTERIDE 5MG TAB TAKE ONE TABLET BY MOUTH ONCE DAILY ORAL ACTIVE TERRANCE NUNES J 2024 [facility] FLUTICASONE PROPIONATE 50MCG/SPRAY SOLN,NASAL, 16GM INSTILL 2 SPRAYS INTO EACH NOSTRIL ONCE DAILY NASAL ACTIVE NUNESTERRANCE 2024 [facility] LOSARTAN 50MG TAB TAKE ONE TABLET BY MOUTH ONCE DAILY ORAL ACTIVE NUNES, TERRANCE Melo 2024 [facility] MEMANTINE TAB TAKE 5MG BY MOUTH ONCE DAILY ORAL ACTIVE NUNES TERRANCE Melo 2024 [facility] SERTRALINE HCL 100MG TAB TAKE ONE-HALF TABLET BY MOUTH ONCE DAILY ORAL ACTIVE NUNES TERRANCE Melo 2024 [facility] SIMVASTATIN 40MG TAB TAKE ONE-HALF TABLET BY MOUTH ONCE DAILY ORAL ACTIVE NNUES TERRANCE Melo 2024 [facility] TAMSULOSIN HCL 0.4MG CAP TAKE 2 CAPSULES BY MOUTH AT BEDTIME ORAL ACTIVE NUNES TERRANCE Melo 2024 [facility] Allergies, Adverse Reactions, Alerts Combined list of allergies from Department of Defense and Veterans Affairs facilities. It does not include entries that were removed or entered in error. Substance Category Reaction Severity Reaction type Status Date Reported Comments Source LEVAQUIN Propensity to adverse reactions to drug (finding) Urticaria active 4 [facility] [place] Propensity to adverse reactions to substance (finding) Nausea and vomiting active 4 [facility] Immunizations Combined list of available immunizations from the Department of Defense and Veterans Affairs facilities. 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 Order Name Results Value Reference Range Date Interpretation Specimen Comments Source BASIC METABOLIC PANEL (non-fast ing) UREA NITROGEN [MASS/VOLUM E] IN SERUM OR PLASMA 24 mg/dL 8 - 26 04/11 Specimen Type: SERUM No comment entered. Ordering Provider: GISELA NUNES Report Released Date/Time: Apr 04, 2025 03:06 PM Reporting Lab: [address] [address] Performing Lab: [address] [address] [facility] BASIC METABOLIC PANEL (non-fast ing) GLUCOSE [MASS/VOLUM E] IN SERUM OR PLASMA 97 mg/dL 65 - 100 04/11 Specimen Type: SERUM No comment entered. Ordering Provider: GISELA NUNES Report Released Date/Time: Apr 04, 2025 03:06 PM Reporting Lab: [address] [address] Performing Lab: [facility] [address] [address] [facility] BASIC METABOLIC PANEL (non-fast ing) SODIUM [MOLES/VOLU ME] IN SERUM OR PLASMA 142 mmol/L 136 - 145 04/11 Specimen Type: SERUM No comment entered. Ordering Provider: GISELA NUNES Report Released Date/Time: Apr 04, 2025 03:06 PM Reporting Lab: [facility] [address] Performing Lab: [facility] [address] [facility] BASIC METABOLIC PANEL (non-fast ing) POTASSIUM [MOLES/VOLU ME] IN SERUM OR PLASMA 5.4 mmol/L 3.5 - 5.1 04/11 H Specimen Type: SERUM No comment entered. Ordering Provider: GISELA NUNES Report Released Date/Time: Apr 04, 2025 03:06 PM Reporting Lab: [facility] [address] [facility] [address] Performing Lab: [facility] [address] [facility] [address] [facility] BASIC METABOLIC PANEL (non-fast ing) CHLORIDE [MOLES/VOLU ME] IN SERUM OR PLASMA 109 mmol/L 98 - 107 04/11 H Specimen Type: SERUM No comment entered. Ordering Provider: GISELA NUNES Report Released Date/Time: Apr 04, 2025 03:06 PM Reporting Lab: [facility] [address] [facility] [address] Performing Lab: [facility] [address] [facility] [address] [facility] BASIC METABOLIC PANEL (non-fast ing) CARBON DIOXIDE, TOTAL [MOLES/VOLU ME] IN SERUM OR PLASMA 27 meq/L 23 - 31 04/11 Specimen Type: SERUM No comment entered. Ordering Provider: GISELA NUNES Report Released Date/Time: Apr 04, 2025 03:06 PM Reporting Lab: [facility] [address] [facility] [address] Performing Lab: [facility] [address] [facility] [address] [facility] BASIC METABOLIC PANEL (non-fast ing) CALCIUM [MASS/VOLUM E] IN SERUM OR PLASMA 8.8 mg/dL 8.8 - 10 04/11 Specimen Type: SERUM No comment entered. Ordering Provider: GISELA NUNES Report Released Date/Time: Apr 04, 2025 03:06 PM Reporting Lab: [facility]N [facility] [address] [facility] [address] Performing Lab: [facility] [address] [facility] [address] [facility] BASIC METABOLIC PANEL (non-fast ing) CREATININE [MASS/VOLUM E] IN SERUM OR PLASMA 1.46 mg/dL 0.72 - 1.25 04/11 H Specimen Type: SERUM No comment entered. Ordering Provider: GISELA NUNES Report Released Date/Time: Apr 04, 2025 03:06 PM Reporting Lab: [facility] [place] [facility] [address] [facility] [address] Performing Lab: [facility] [address] [address] [facility] [place] [facility] BASIC METABOLIC PANEL (non-fast ing) GLOMERULAR FILTRATION RATE/1.73 SQ M.PREDICTED [VOLUME RATE/AREA] IN SERUM, PLASMA OR BLOOD BY CREATININE- BASED FORMULA (CKD-EPI 2020) 50 mL/min 60 04/11 L Specimen Type: SERUM No comment entered. Ordering Provider: GISELA NUNES Report Released Date/Time: Apr 04, 2025 03:06 PM Reporting Lab: [facility] [place] [address] [address] Performing Lab: [facility] [address] [facility] [address] [facility]ITALR[facility]USN [facility]ITAL[facility] CBC LEUKOCYTES [#/VOLUME] IN BLOOD BY AUTOMATED COUNT 8.86 10*3/u L 4.50 - 11.00 04/11 Specimen Type: BLOOD No comment entered. Ordering Provider: GISELA NUNES Report Released Date/Time: Apr 04, 2025 03:06 PM Reporting Lab: [facility]RL TRN [facility]ITAL[facility]ETS [address] [address] Performing Lab: [facility] [address] [address] [facility]ITALR[facility]USN [facility]ITALUSE [facility] CBC ERYTHROCYTE S [#/VOLUME] IN BLOOD BY AUTOMATED COUNT 4.94 10*6/u L 4.23 - 5.66 04/11 Specimen Type: BLOOD No comment entered. Ordering Provider: GISELA NUNES Report Released Date/Time: Apr 04, 2025 03:06 PM Reporting Lab: [facility] TRN [facility]ITAL[facility] [address] [address] Performing Lab: [facility] [place] [facility] [address] [facility] [address] [facility] [place] [facility] CBC HEMOGLOBIN [MASS/VOLUM E] IN BLOOD 16.0 g/dL 12.8 - 17 04/11 Specimen Type: BLOOD No comment entered. Ordering Provider: GISELA NUNES Report Released Date/Time: Apr 04, 2025 03:06 PM Reporting Lab: [facility] [place] [facility] [address] [facility] [address] Performing Lab: [facility] [place] [place] [facility] [address] [facility] [address] [facility] [place] [facility] CBC HEMATOCRIT [VOLUME FRACTION] OF BLOOD BY AUTOMATED COUNT 44.8 39.2 - 50.4 04/11 Specimen Type: BLOOD No comment entered. Ordering Provider: GISELA NUNES Report Released Date/Time: Apr 04, 2025 03:06 PM Reporting Lab: [facility] [place] [facility] [address] [facility] [address] Performing Lab: [facility] [address] [address] [facility] [place] [facility] CBC MCV [ENTITIC VOLUME] BY AUTOMATED COUNT 90.7 fL 82 - 99 04/11 Specimen Type: BLOOD No comment entered. Ordering Provider: GISELA NUNES Report Released Date/Time: Apr 04, 2025 03:06 PM Reporting Lab: [facility] [place] [facility] [address] [facility] [address] Performing Lab: [facility] [place] [facility] [address] [facility] [address] [facility] [place] [facility] CBC MCHC [MASS/VOLUM E] BY AUTOMATED COUNT 35.7 g/dL 30.8 - 35.1 04/11 H Specimen Type: BLOOD No comment entered. Ordering Provider: GISELA NUNES Report Released Date/Time: Apr 04, 2025 03:06 PM Reporting Lab: [facility] [place] [facility] [address] [facility] [address] Performing Lab: [facility] [facility] [address] [facility] [address] [facility] [place] [facility] CBC PLATELETS [#/VOLUME] IN BLOOD BY AUTOMATED COUNT 166 10*3/u L 140 - 360 04/11 Specimen Type: BLOOD No comment entered. Ordering Provider: GISELA NUNES Report Released Date/Time: Apr 04, 2025 03:06 PM Reporting Lab: [facility] [address] [facility] [address] Performing Lab: [facility] [place] [facility] [address] [facility] [address] [facility] [place] [facility] CBC PLATELET MEAN VOLUME [ENTITIC VOLUME] IN BLOOD BY AUTOMATED COUNT 11.2 fL 9.2 - 12.4 04/11 Specimen Type: BLOOD No comment entered. Ordering Provider: GISELA NUNES Report Released Date/Time: Apr 04, 2025 03:06 PM Reporting Lab: [facility] [place] [facility] [address] [facility] [address] Performing Lab: [facility] [place] [facility] [address] [facility] [address] [facility] [place] [facility] CBC ERYTHROCYTE DISTRIBUTIO N WIDTH [RATIO] BY AUTOMATED COUNT 13.2 12.0 - 16.0 04/11 Specimen Type: BLOOD No comment entered. Ordering Provider: GISELA NUNES Report Released Date/Time: Apr 04, 2025 03:06 PM Reporting Lab: [facility] [place] [facility] [address] [facility] [address] Performing Lab: [facility] [place] [facility] [address] [facility] [address] [facility] [place] [facility] CBC MCH [ENTITIC MASS] BY AUTOMATED COUNT 32.4 pg 26.2 - 32.6 04/11 Specimen Type: BLOOD No comment entered. Ordering Provider: GISELA NUENS Report Released Date/Time: Apr 04, 2025 03:06 PM Reporting Lab: [facility] [place] [place] [facility] [address] [facility] [address] Performing Lab: [facility] [place] [place] [facility] [address] [facility] [address] [facility] [place] [facility] LIPID PANEL, NON FASTING CHOLESTEROL [MASS/VOLUM E] IN SERUM OR PLASMA 160 mg/dL 04/11 Specimen Type: SERUM No comment entered. Ordering Provider: GISELA NUNES Report Released Date/Time: Apr 04, 2025 03:06 PM Reporting Lab: [facility] [place] [facility] [address] [facility] [address] Performing Lab: [facility] [address] [facility] [address] [facility] TRN [facility]ITALUSE [facility] LIPID PANEL, NON FASTING TRIGLYCERID E [MASS/VOLUM E] IN SERUM OR PLASMA 253 mg/dL 0 - 150 04/11 H Specimen Type: SERUM No comment entered. Ordering Provider: GISELA NUNES Report Released Date/Time: Apr 04, 2025 03:06 PM Reporting Lab: [facility] [place] [facility] [address] [facility] [address] Performing Lab: [facility] [place] [facility] [address] [facility] [address] [facility] LIPID PANEL, NON FASTING CHOLESTEROL IN LDL [MASS/VOLUM E] IN SERUM OR PLASMA BY CALCULATION 78 mg/dL 0 - 129 04/11 Specimen Type: SERUM No comment entered. Ordering Provider: GISELA NUNES Report Released Date/Time: Apr 04, 2025 03:06 PM Reporting Lab: [facility] [place] [place] [facility] [address] [facility] [address] Performing Lab: [facility] [place] [place] [facility] [address] [facility] [address] [facility] [place] [facility] LIPID PANEL, NON FASTING CHOLESTEROL .TOTAL/CHOL ESTEROL IN HDL [MASS RATIO] IN SERUM OR PLASMA 5.2 04/11 Specimen Type: SERUM No comment entered. Ordering Provider: GISELA NUNES Report Released Date/Time: Apr 04, 2025 03:06 PM Reporting Lab: [facility] [place] [facility] [address] [facility] [address] Performing Lab: [facility] [place] [facility] [address] [facility] [address] [facility] [place] [facility] LIPID PANEL, NON FASTING CHOLESTEROL IN HDL [MASS/VOLUM E] IN SERUM OR PLASMA 31 mg/dL 40 04/11 L Specimen Type: SERUM No comment entered. Ordering Provider: GISELA NUNES Report Released Date/Time: Apr 04, 2025 03:06 PM Reporting Lab: [facility] [place] [facility] [address] [facility] [address] Performing Lab: [facility] [place] [facility] [address] [facility] [address] [facility] [place] [facility] LIVER FUNCTION PROTEIN [MASS/VOLUM E] IN SERUM OR PLASMA 7.0 g/dL 6.4 - 8.3 04/11 Specimen Type: SERUM No comment entered. Ordering Provider: GISELA NUNES Report Released Date/Time: Apr 04, 2025 03:06 PM Reporting Lab: [facility] [place] [facility] [address] [facility] [address] Performing Lab: [facility] [place] [facility] [address] [facility] [address] [facility] [place] [facility] LIVER FUNCTION ALBUMIN [MASS/VOLUM E] IN SERUM OR PLASMA BY BROMOCRESOL PURPLE (BCP) DYE BINDING METHOD 4.7 g/dL 3.2 - 4.6 04/11 H Specimen Type: SERUM No comment entered. Ordering Provider: GISELA NUNES Report Released Date/Time: Apr 04, 2025 03:06 PM Reporting Lab: [facility] [place] [facility] [address] [facility] [address] Performing Lab: [facility] [place] [facility] [address] [facility] [address] [facility] [place] [facility] LIVER FUNCTION ALKALINE PHOSPHATASE [ENZYMATIC ACTIVITY/VO LUME] IN SERUM OR PLASMA 82 U/L 40 - 150 04/11 Specimen Type: SERUM No comment entered. Ordering Provider: GISELA NUNES Report Released Date/Time: Apr 04, 2025 03:06 PM Reporting Lab: [facility] [place] [facility] [address] [facility] [address] Performing Lab: [facility] [place] [facility] [address] [facility] [address] [facility] LIVER FUNCTION ASPARTATE AMINOTRANSF ERASE [ENZYMATIC ACTIVITY/VO LUME] IN SERUM OR PLASMA BY WITH P-5'-P 54 U/L 5 - 34 04/11 H Specimen Type: SERUM No comment entered. Ordering Provider: GISELA NUNES Report Released Date/Time: Apr 04, 2025 03:06 PM Reporting Lab: [facility] [place] [facility] [address] [facility] [address] Performing Lab: [facility] [place] [facility] [address] [facility] [address] [facility] LIVER FUNCTION ALANINE AMINOTRANSF ERASE [ENZYMATIC ACTIVITY/VO LUME] IN SERUM OR PLASMA BY WITH P-5'-P 60 U/L 0 - 55 04/11 H Specimen Type: SERUM No comment entered. Ordering Provider: GISELA NUNES Report Released Date/Time: Apr 04, 2025 03:06 PM Reporting Lab: [facility] [place] [facility] [address] [facility] [address] Performing Lab: [facility] [place] [facility] [address] [facility] [address] [facility] LIVER FUNCTION BILIRUBIN.T OTAL [MASS/VOLUM E] IN SERUM OR PLASMA 1.2 mg/dL 0.2 - 1.2 04/11 Specimen Type: SERUM No comment entered. Ordering Provider: GISELA NUNES Report Released Date/Time: Apr 04, 2025 03:06 PM Reporting Lab: [facility] [place] [facility] [address] [facility] [address] Performing Lab: [facility] [place] [facility] [address] [facility] [address] [facility] [place] [facility] LIVER FUNCTION BILIRUBIN.D IRECT [MASS/VOLUM E] IN SERUM OR PLASMA 0.3 mg/dL 0 - 0.5 04/11 Specimen Type: SERUM No comment entered. Ordering Provider: GISELA NUNES Report Released Date/Time: Apr 04, 2025 03:06 PM Reporting Lab: [facility] [place] [facility] [address] [facility] [address] Performing Lab: [facility] [place] [facility] [address] [facility] [address] [facility] [place] [facility] Vital Signs Combined list of inpatient and outpatient Vital Signs from Department of Defense and Veterans Affairs, ranging from 12 months to all on record, depending upon the facility. Vital Sign Value Date Comments Source SYSTOLIC BLOOD PRESSURE 132 04/29/20 25 14:15:17 [facility] [place] [facility] DIASTOLIC BLOOD PRESSURE 72 04/29/ 025 14:15:17 [facility] [place] [facility] PULSE OXIMETRY 97 % 04/29/2025 14:15:17 [facility] [place] [facility] WEIGHT 157 04/29/2025 14:15:17 [facility] [place] [facility] BMI 28 kg/m2 04/29/2025 14:15:17 [facility] [place] [facility] PAIN 0 04/29/2025 14:15:17 [facility] [place] [facility] HEIGHT 63 04/29/2025 14:15:17 [facility] [place] [facility] TEMPERATURE 98.3 04/29/2025 14:15:17 [facility] [place] [facility] PULSE 70 04/29/2025 14[facility]15:17 [facility] [place] [facility] RESPIRATION 20 04/29/2025 14:15:17 [facility] [place] [facility] SYSTOLIC BLOOD PRESSURE 136 10/22/19 09:49:00 [facility] [place] [facility] DIASTOLIC BLOOD PRESSURE 78 025 09:49:00 [facility] [place] [facility] SYSTOLIC BLOOD PRESSURE 149 10/19/19 15:10:36 [facility] [place] [facility] DIASTOLIC [...] [facility] [place] [facility] En[facility] [id number] 07/05 [facility] [id number] Diagnos is: ICD-10- CM Z88.1 Allergy status to other antibio tic agents TASHIA ESPINOZA 09/15 [facility] En[facility] [id number] 10/19 [facility] OFFICE O/P NEW LOW 30 MIN [id number] Diagnos is: ICD-10- CM I10 Essenti al (primar y) hyperte nsion NUNESRoberto ANA J 10/19 [facility] En[facility] [id number] 01/10 [facility] En[facility] [id number] 04/07 [facility] En[facility] [id number] 04/13 [facility] OFFICE O/P EST HI 40 MIN [id number] Diagnos is: ICD-10- CM I10 Essenti al (primar y) hyperte nsion Roberto NUNES J 04/29 [facility] Out[facility] Encounter [id number] 05/04 [facility]counter [id number] 05/06 [facility] Encounter [id number] 05/06 [facility] Social History Combined list of available smoking, tobacco, and other social history from [facility] and [facility] facilities. Social History Type Response Date Comment Sourc e Tobacco smoking status NHIS VA-TOBACCO USE FORMER CIGARETTES 10/19/2024 [facility] History of tobacco use VA-TOBACCO NEVER USED OTHER TYPE 10/19/2024 [facility]
--- OUTSIDE RECORDS SUMMARY | 2025-05-24 15:10 | XMS_ITS ---
Author Name [facility] Organization Unknown Care Team Organization Name Specialty Phone Email Start Date End Da te [facility] Soumya Khan [facility] 06/05/2023 024 [facility] Reji Elizalde [facility] 08/06/2022
--- OUTSIDE RECORDS SUMMARY | 2025-05-24 15:10 | XMS_ITS | Clinical Summary ---
Author Organization [facility] [address] [place] [address] [address] [place] [address] Phone Care Team Providers Care Superintendent Colliery Name Role Phone Reji Elizalde Primary Care Provider [phone] Allergies Active Allergy Reactions Criticality Noted Date [...] at bedtime. 90 tablet 03/07/20 25 Active polyethylene glycol (Golytely) 236-22.74-6.74 -5.86 gram solution Take 4L by mouth once for one dose. May substitue any PEG. Starting at 2PM the day before your procedure drink 1 8oz glasses at your own pace until you complete half of the gallon. Finish 2nd half of the gallon at 8PM. 4000 mL 04/27/20 25 Active bisacodyL (DULCOLAX) 5 mg EC tablet Take 2 tablets by mouth right before beginning bowel prep. See instructions provided by the office 2 tablet 04/27/20 25 Active donepeziL (ARICEPT) 5 mg tablet Take 1 tablet (5 mg total) by mouth. Active finasteride (PROSCAR) 5 mg tablet Take 1 tablet (5 mg total) by mouth 1 (one) time each day. Active umeclidinium-vilan teroL (Anoro Ellipta) 62.5-25 mcg/actuation inhaler Inhale 1 puff by mouth 1 (one) time each day. 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 Recommend re-trying CPAP, antidepressant, psychotherapy, regular exercise. Obstructive sleep apnea 11/24/2020 Overview (12/03/2023): [facility] Home Sleep Apnea Test: Date [...] Encounters Date Type Department Care Team Description 05/04/2025 2:03 PM EDT Anesthesia Event [facility] Endoscopy [address] [place] [address] Thierry Aldana MD Steele, Matthew G, CRNA 05/04/2025 12:10 PM EDT - 05/04/2025 11:59 PM EDT Hospital Encounter [facility] Endoscopy [address] [place] [address] Carmen Winter MD Steele, Matthew G, Thierry Scott MD Hx of colonic polyps Discharge Disposition: Home or Self Care from Last 3 Months Immunizations Name Administration [...] three years COLONOSCOPY W/ POLYPECTOMY 03/01/14 PROCEDURE: IA COLSC FLX W/RMVL OF TUMOR POLYP LESION [...] colonic polyps Mild cognitive impairment 09/10/2021 DX:Mil d cognitive impairment; COMMENT: Neuropsych testing 08/13/21 with Rubi Do: mild congnitive impairment, nonamnestic type, 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 Recommend re-trying CPAP, antidepressant, psychotherapy, regular exercise. Palpitations Androgen deficiency Sleep apnea Memory loss Family History Medical History Relation Name Comments [...] Not Answered Alcohol Use Standard Drinks/Week Comments Not Currently 0 (1 standard drink = 0.6 oz pur e alcohol) Interpersonal Safety Answer Date Record ed Physical Abuse 05/04/2025 Verbal Abuse 05/04/2025 Sex and Gender Information Value Date Recorded Sex Assigned at Not on file Legal Sex Male 11:27 AM EST Gender Identity Not on file Sexual Orientation Not on file Obstetrics History Last Filed Vital Signs Vital Sign Reading Time Taken Comments Blood Pressure 163/84 05/04/2025 2:38 PM EDT Pulse 65 05/04/2025 2:38 PM EDT Temperature 36.3 C (97.4 F) 05/04/2025 2:18 PM EDT Respiratory Rate 13 05/04/2025 2:38 PM EDT Oxygen Saturation 98% 05/04/2025 2:38 PM EDT Inhaled Oxygen Concentration - - Weight 69.4 kg (153 lb) 05/04/2025 1:52 PM EDT Height 160 cm (5' 3 ) 05/04/2025 1:52 PM EDT Body Mass Index 27.1 05/04/2025 1:52 PM EDT Plan of Treatment Upcoming Encounters Date Type Department Care Team (Late st Contact Info) Description 06/14/2025 1:00 PM EDT Office Visit Adult Medicine [address] [phone] Reji Elizalde PA [address] [place] [address] 01/25/2026 1:00 PM EDT Office Visit Adult [address] [phone] Reji Elizalde PA [address] [place] [address] Health Maintenance Due Date Last Done Comments Social Influencers of Health Screening 09/06/2022 COVID-19 Vaccine ( season) 2024 06/24/2024, 12/25/2021, 01/06/2021, Additional history exists RSV Immunization Adult Patients (1 - 1-dose 75+ series) 2025 04/07/2024 Influenza Vaccine (#1) 2025 , 06/04/2023, 06/05/2022, Additional history exists Medicare Annual Wellness Visit 10/06/2025 10/06/2024 Hypertension/CHF/CAD Annual BMP Blood Test 10/08/2025 10/08/2024, 04/29/2024 Falls Risk Assessment 05/04/2026 05/04/2025 , 10/06/2024, 02/03/2023 Cholesterol Screening (Lipid Panel) 10/08/2029 10/08/2024, 04/29/2024, 06/05/2023 Colorectal Cancer Screening: Colonoscopy 05/04/2030 05/04/2025, 09/01/2019 DTaP,Tdap,and Td Vaccines (4 - Td or Tdap) 02/03/2033 02/03/2023, 06/16/2012, 04/14/2002 Hepatitis C Screening Addressed 06/09/2013 Overri dden with the intention of not completing the topic Pneumococcal Vaccine: 50+ Years Completed 10/13/2019, 10/04/2015, 02/11/2012 RSV Immunization Patients Under 20 months Aged Out 04/07/2024 No longer eligible based on patient's age to complete this topic Zoster Vaccines Completed 06/24/2024, 03/29, 06/09/2013 Depression Screening Completed 10/06/2024 Abdominal Aortic Aneurysm (AAA) Screen Discontinued HIB Vaccines Aged Out No longer eligi ble based on patient's age to complete this topic HPV Vaccines Aged Out No longer eligi ble based on patient's age to complete this topic Hepatitis A Vaccines Aged Out No long er eligible based on patient's age to complete this topic Hepatitis B Vaccines Aged Out No long er eligible based on patient's age to complete [...] Procedure Name Priority Date/Time Associated Diagnosis Comments COLONOSCOPY Routine 05/04/2025 2:17 PM EDT Hx of colonic polyps TISSUE EXAM Routine 05/04/2025 2:12 PM EDT Hx of colonic polyps COMPREHENSIVE METABOLIC PANEL Routine 10/08/2024 3:41 PM EST Routine general medical examination at a health care facility Primary hypertension Screening for malignant neoplasm of colon Acute nonintractable headache, unspecified headache type Pure hypercholesterolemia Gastroesophageal reflux disease without esophagitis Mild cognitive impairment Fatty liver Obstructive sleep apnea Hypertrophy of prostate without urinary obstruction Memory loss Depression, unspecified depression type LIPID PANEL WITH REFLEX TO DIRECT LDL Routine 10/08/2024 3:41 PM EST Routine general medical examination at a health care facility Primary hypertension Screening for malignant neoplasm of colon Acute nonintractable headache, unspecified headache type Pure hypercholesterolemia Gastroesophageal reflux disease without esophagitis Mild cognitive impairment Fatty liver Obstructive sleep apnea Hypertrophy of prostate without urinary obstruction Memory loss Depression, unspecified depression type from Last 3 Months or Most Recently Relevant to Health Maintenance Results * COLONOSCOPY Anesthesia - MAC; [facility] ENDOSCOPY (05/04/2025 2:17 PM EDT) Anatomical Region Laterality Modality Endoscopy 05/04/2025 2:03 PM EDT Impressions 05/04/2025 2:18 PM EDT - Three diminutive polyps in the sigmoid colon and in the transverse colon, removed with a jumbo cold forceps. Resected and retrieved. - The examination was otherwise normal on direct and retroflexion views. Recommendation: - Discharge patient to home. - Await pathology results. - Repeat colonoscopy in 5 years for surveillance. Narrative 05/04/2025 2:18 PM EDT [facility] GI Patient Name: Pj Shaikh Procedure Date: 05/04/2025 2:03 PM Date of : 1950 Age: 75 Gender: Male Note Status: Finalized Attending MD: Carmen Winter MD, Procedure Date No Time: 05/04/2025 Procedure: Colonoscopy Indications: High risk colon cancer surveillance: Personal history of colonic polyps, Last colonoscopy: August 2019 Providers: Carmen Winter MD Referring MD: Carmen Winter MD Medicines: Monitored Anesthesia Care Complications: No immediate complications. Estimated blood loss: Minimal. Estimated Blood Loss: Estimated blood loss was minimal. Procedure: Pre-Anesthesia Assessment: - Prior to the procedure, a History and Physical was performed, and patient medications and allergies were reviewed. The patient is competent. The risks and benefits of the procedure and the sedation options and risks were discussed with the patient. All questions were answered and informed consent was obtained. Patient identification and proposed procedure were verified by the physician, the nurse, the stitcher around and the actuarial technician in the pre-procedure area in the endoscopy suite. Mental Status Examination: alert and oriented. Airway Examination: normal oropharyngeal airway and neck mobility. Respiratory Examination: clear to auscultation. CV Examination: normal. Prophylactic Antibiotics: The patient does not require prophylactic antibiotics. Prior Anticoagulants: The patient has taken no anticoagulant or antiplatelet agents. ASA Grade Assessment: II - A patient with mild systemic disease. After reviewing the risks and benefits, the patient was deemed in satisfactory condition to undergo the procedure. The anesthesia plan was to use monitored anesthesia care (MAC). Immediately prior to administration of medications, the patient was re-assessed for adequacy to receive sedatives. The heart rate, respiratory rate, oxygen saturations, blood pressure, adequacy of pulmonary ventilation, and response to care were monitored throughout the procedure. The physical status of the patient was re-assessed after the procedure. After I obtained informed consent, the scope was passed under direct vision. Throughout the procedure, the patient's blood pressure, pulse, and oxygen saturations were monitored continuously. The Colonoscope was introduced through the anus and advanced to the cecum, identified by appendiceal orifice and ileocecal valve. The colonoscopy was performed without difficulty. The patient tolerated the procedure well. The quality of the bowel preparation was good. Findings: The perianal and digital rectal examinations were normal. Three sessile polyps were found in the sigmoid colon and transverse colon. The polyps were diminutive in size. These polyps were removed with a jumbo cold forceps. Resection and retrieval were complete. Estimated blood loss was minimal. The exam was otherwise without abnormality on direct and retroflexion views. Procedure Code(s): --- Professional --- 22993, Colonoscopy, flexible; with biopsy, single or multiple Diagnosis Code(s): --- Professional --- D12.5, Benign neoplasm of sigmoid colon D12.3, Benign neoplasm of transverse colon (hepatic flexure or splenic flexure) CPT copyright 2020 [employer]. All rights reserved. The codes documented in this report are preliminary and upon fire adjuster review may be revised to meet current compliance requirements. Carmen Witner MD 05/04/2025 2:18:13 PM This report has been signed electronically.Carmen Winter MD Number of Addenda: 0 Note Initiated On: 05/04/2025 2:03 PM Scope Withdrawal Time: 0 hours 6 minutes 37 seconds Scope In: 2:08:31 PM Scope Out: 2:16:53 PM Endoscopy Department at [facility] - [address] [place] [id number] Procedure Note Carmen Winter MD - 05/04/2025 [facility] GI Patient Name: Pj Shaikh Procedure Date: 05/04/2025 2:03 PM Date of : 1950 Age: 75 Gender: Male Note Status: Finalized Attending MD: Carmen Winter MD, Procedure Date No Time: 05/04/2025 Procedure: Colonoscopy Indications: High risk colon cancer surveillance: Personalhistory of colonic polyps, Last colonoscopy: August2019 Providers: Carmen Winter MD Referring MD: Carmen Winter MD Medicines: Monitored Anesthesia Care Complications: No immediate complications. Estimated blood loss: Minimal. Estimated Blood Loss: Estimated blood loss was minimal. Procedure: Pre-Anesthesia Assessment: - Prior to the procedure, a History and Physicalwas performed, and patient medications and allergieswere reviewed. The patient is competent. The risks and benefits of the procedure and the sedation optionsand risks were discussed with the patient. Allquestions were answered and informed consent was obtained. Patient identification and proposed procedure were verified by the physician, the nurse, theanesthetist and the actuarial technician in the pre-procedure area in the endoscopy suite. Mental Status Examination: alertand oriented. Airway Examination: normal oropharyngeal airway and neck mobility. Respiratory Examination: clear to auscultation. CV Examination: normal. Prophylactic Antibiotics: The patient does notrequire prophylactic antibiotics. Prior Anticoagulants: The patient has taken no anticoagulant or antiplatelet agents. ASA Grade Assessment: II - A patient withmild systemic disease. After reviewing the risks and benefits, the patient was deemed in satisfactory condition to undergo the procedure. The anesthesia plan was to use monitored anesthesia care (MAC). Immediately prior to administration of medications, the patient was re-assessed for adequacy to receive sedatives. The heart rate, respiratory rate, oxygen saturations, blood pressure, adequacy of pulmonary ventilation, and response to care were monitored throughout the procedure. The physical status ofthe patient was re-assessed after the procedure. After I obtained informed consent, the scope was passed under direct vision. Throughout theprocedure, the patient's blood pressure, pulse, and oxygen saturations were monitored continuously. The Colonoscope was introduced through the anus and advanced to the cecum, identified by appendiceal orifice and ileocecal valve. The colonoscopy was performed without difficulty. The patient tolerated the procedure well. The quality of the bowel preparation was good. Findings: The perianal and digital rectal examinations were normal. Three sessile polyps were found in the sigmoidcolon and transverse colon. The polyps were diminutive in size. These polyps were removed with a jumbo cold forceps. Resection and retrieval were complete. Estimated blood loss was minimal. The exam was otherwise without abnormality ondirect and retroflexion views. Procedure Code(s): --- Professional --- 80193, Colonoscopy, flexible; with biopsy, singleor multiple Diagnosis Code(s): --- Professional --- D12.5, Benign neoplasm of sigmoid colon D12.3, Benign neoplasm of transverse colon (hepatic flexure or splenic flexure) CPT copyright 2020 [employer]. All rights reserved. The codes documented in this report are preliminary and upon fire adjuster reviewmay be revised to meet current compliance requirements. Carmen Winter MD 05/04/2025 2:18:13 PM This report has been signed electronically.Carmen Winter MD Number of Addenda: 0 Note Initiated On: 05/04/2025 2:03 PM Scope Withdrawal Time: 0 hours 6 minutes 37 seconds Scope In: 2:08:31 PM Scope Out: 2:16:53 PM Endoscopy Department at [facility] - [address] [place] [phone] IMPRESSION: - Three diminutive polyps in the sigmoid colon and in the transverse colon, removed with a jumbo cold forceps. Resected and retrieved. - The examination was otherwise normal on directand retroflexion views. Recommendation: - Discharge patient to home. - Await pathology results. - Repeat colonoscopy in 5 years for surveillance. Carmen Winter MD GI~PROCEDURE ORDERABLES Fin al Result * Tissue exam (05/04/2025 2:12 PM EDT) Final Diagnosis A. Transverse Colon, polyp: Tubular adenoma. B. Sigmoid Colon, polyp: Hyperplastic polyp. 05/05/2025 2:14 PM EDT [facility] Gross Description A. Large Intestine, Transverse Colon, polyp x1: Labeled trans colon polyp x 1 . Received in formalin, is an approximately 0.5 cm in greatest diameter soft to rubbery, garcia-pink to red, polypoid tissue fragment, which is wrapped in paper and submitted in toto in one cassette, one piece, multiple levels. B. Large Intestine, Sigmoid Colon, polyp x1: Labeled sig colon polyp x 1 . Received in formalin, are four irregular soft to rubbery, garcia-pink to red, polypoid tissue fragments, approximately ranging from 0.3 cm to 0.45 cm in greatest diameters, which are wrapped in paper and submitted in toto in one cassette, four pieces, multiple levels. Please note: Small tissue fragments may not survive processing. hs/DG 05/05/2025 2:14 PM EDT [facility] Disclaimer Unless otherwise specified, all tissue is 10% NB formalin fixed and paraffin embedded. 05/05/2025 2:14 PM EDT [facility] Tissue Transverse colon structure / Unknown 05/04/2025 2:12 PM EDT 05/04/2025 3:52 PM EDT Tissue specimen (specimen) Sigmoid colon structure / Unknown 05/04/2025 2:13 PM EDT 05/04/2025 3:52 PM EDT us Carmen Winter MD LAB PATHOLOGY ORDERABLES Fi nal Result [facility] [address] [place] [address], [place] [phone] * (ABNORMAL) Lipid panel with reflex to direct LDL (10/08/2024 3:41 PM EST) Cholesterol 146 0 - 200 mg/dL LAB CHEMISTRY METHOD 10/09/2024 12:24 AM EST [facility] Triglycerides 192(H) 0 - 150 mg/dL LAB CHEMISTRY METHOD 10/09/2024 12:24 AM [facility] HDL 35(L) >=40 mg/dL LAB CHEMISTRY METHOD 10/09/2024 12:24 AM [facility] LDL Calculated 73 0 - 100 mg/dL LAB CHEMISTRY METHOD 10/09/2024 12:24 AM [facility] VLDL Cholesterol Aristides 38.4 mg/dL LAB CHEMISTRY METHOD 10/09/2024 12:24 AM [facility] Non HDL Chol. (LDL+VLDL) 111 <145 mg/dL LAB CHEMISTRY METHOD 10/09/2024 12:24 AM [facility] Chol/HDL Ratio 4.2 0.0 - 4.4 LAB CHEMISTRY METHOD 10/09/2024 12:24 AM [facility] Blood Venous blood specimen / Unknown Venipuncture / Unknown 10/08/2024 3:41 PM EST 10/08/2024 3:41 PM EST Reji LUDWIG LAB BLOOD ORDERABLES Taylor l Result [facility] [address] [place] [address], [place] [phone] * (ABNORMAL) Comprehensive metabolic panel (10/08/2024 3:41 PM EST) Sodium 139 133 - 145 mmol/L LAB CHEMISTRY METHOD 10/09/2024 12:24 AM EST [facility] Potassium 4.1 3.5 - 5.5 mmol/L LAB CHEMISTRY METHOD 10/09/2024 12:24 AM [facility] Chloride 109 96 - 110 mmol/L LAB CHEMISTRY METHOD 10/09/2024 12:24 AM [facility] CO2 27 21 - 32 mmol/L LAB CHEMISTRY METHOD 10/09/2024 12:24 AM [facility] Anion Gap 3 3 - 11 LAB CHEMISTRY METHOD 10/09/2024 12:24 AM [facility] Glucose 99 70 - 100 mg/dL LAB CHEMISTRY METHOD 10/09/2024 12:24 AM [facility] BUN 16 5 - 25 mg/dL LAB CHEMISTRY METHOD 10/09/2024 12:24 AM [facility] Creatinine 1.53(H) 0.70 - 1.30 mg/dL LAB CHEMISTRY METHOD 10/09/2024 12:24 AM [facility] eGFR 47(L) >=60 mL/min/1. 73m2 LAB CHEMISTRY METHOD 10/09/2024 12:24 AM [facility] Comment:Calculation based on the Chronic Kidney Disease Epidemiology Collaboration (CKD-EPI) equation refit without adjustment for race. BUN/Creatinine Ratio 10.5 LAB CHEMISTRY METHOD 10/09/2024 12:24 AM [facility] Calcium 8.0(L) 8.5 - 10.5 mg/dL LAB CHEMISTRY METHOD 10/09/2024 12:24 AM [facility] AST (SGOT) 33 10 - 42 unit/L LAB CHEMISTRY METHOD 10/09/2024 12:24 AM [facility] ALT (SGPT) 59 10 - 60 unit/L LAB CHEMISTRY METHOD 10/09/2024 12:24 AM [facility] Alkaline Phosphatase 95 42 - 121 unit/L LAB CHEMISTRY METHOD 10/09/2024 12:24 AM [facility] Total Protein 6.8 6.0 - 8.0 g/dL LAB CHEMISTRY METHOD 10/09/2024 12:24 AM EST [facility] Albumin 4.1 3.2 - 5.0 g/dL LAB CHEMISTRY METHOD 10/09/2024 12:24 AM EST [facility] Total Bilirubin 1.2 0.0 - 1.4 mg/dL LAB CHEMISTRY METHOD 10/09/2024 12:24 AM EST [facility] Blood Venous blood specimen / Unknown Venipuncture / Unknown 10/08/2024 3:41 PM EST 10/08/2024 3:41 PM EST Reji LUDWIG LAB BLOOD ORDERABLES Taylor lelia Result [facility] [address] [place] [address], from Last 3 Months or Most Recently Relevant to Health Maintenance Insurance [employer] Care Teams Superintendent Colliery Relationship Specialty Start Date End Date Reji Elizalde PA [address] [place] [id number] PCP - General Internal Medicine 06/15/21
[2025-05-24 16:08] LABS: Prostate Specific Antigen 1.67 ng/mL (<0.05-4.0)
== END 2025-05-24 14:09 | disposition home or self-care (01) ==
LOC: HO.LAB 14:08
PROVIDERS: PCP Physician Assistant Medical; Visit Provider Urology
DX: N40.1 Benign prostatic hyperplasia with lower urinary tract symptoms (principal); R39.12 Poor urinary stream; Z12.5 Encounter for screening for malignant neoplasm of prostate
CPT/HCPCS: 36415; 84153

== ENCOUNTER 2025-06-09 09:58 | Outpatient (AMB) | payer MEDICARE, SELFPAY ==
--- NOTE | 2025-06-09 10:03 | MHC.OFFVIS ---
Intake Visit Reasons: 1y/PSA/PVR Intake Note: patient presents today for: 1yr/PSA/PVR urology medications: finasteride, tamsulosin blood thinners: none labs done 05/24/26: PSA 1.67 today's PVR: 86mls Data Analyst Etl Developer Required: No Accompanied by: Self / Same As Patient Allergies levofloxacin (From LEVAQUIN) Allergy (Intermediate, Verified 06/09/25 10:04) RASH/HIVES anethseia Allergy (Unknown, Uncoded 06/09/25 10:04) redness and itching HPI Comments Details: Pj is a pleasant male. He is a patient of Dr. Elizalde. He is seen for the following urologic conditions - elevated PSA - lower urinary tract symptoms - erectile dysfunction Yearly review UA noted 2+ protein Continue with combination therapy Last year finasteride reduced to Friday, Friday, Friday May stop tamsulosin Also stating mild erectile dysfunction Trial daily tadalafil in setting of combination BPH and ED Three-month follow-up tele Lower urinary tract symptoms Longstanding Prior TURP 2009 PSA historically around 4. Prior negative biopsy. 11/20 4.4, 12/19 3.7 32%, 06/22 1.7, 05/23 1.7 Current medications include tamsulosin 0.4 mg daily Therapeutic plan - interval review [facility] Medical History (Updated 06/09/25 @ 10:29 by Oniel Rowe MD) HLD (hyperlipidemia) HTN (hypertension) Stress Migraine Depression with anxiety Insomnia POOJA (obstructive sleep apnea) Mild cognitive impairment Elevated prostate specific antigen [PSA] BPH (benign prostatic hyperplasia) Increased prostate specific antigen (PSA) velocity Social History Household Members: Spouse Review of Systems Const Denies chills and Denies fever(s) Card Reports no additional complaints and Denies syncope Resp Denies cough GI Denies abdominal pain and Denies heartburn Reports as per HPI and Denies change in libido Neuro Denies syncope Psych Denies change in libido Endo Denies change in libido Physical Exam Const General: cooperative, healthy appearing, comfortable and no acute distress Orientation/consciousness: patient oriented x3 HEENT Face and sinus: Yes normal facial exam Mouth: moist mucous membranes Neck Neck: Yes normal visual inspection, Yes full ROM and Yes trachea midline Chest Chest palpation & inspection: normal inspection of the chest Resp Effort & Inspection: normal respiratory effort, able to speak in complete sentences and no respiratory distress GI Inspection: Yes normal to inspection Back/Spine/Pelvis Cervical Spine: normal cervical lordosis Thoracic/Lumbar Spine: thoracic and lumbar spine normal to inspection Skin General skin exam: no rashes or lesions noted Neuro General: patient oriented x3, gait normal, tone normal and moves all extremities Extrem General: Yes normal to inspection and Yes capillary refill normal Assessment & Plan Assessment & Plan (1) BPH (benign prostatic hyperplasia): Code(s): N40.0 - Benign prostatic hyperplasia without lower urinary tract symptoms Category: Medical Qualifiers: Lower urinary tract symptom presence: symptoms present Lower urinary tract symptom detail: weak urinary stream Qualified Code(s): N40.1 - Benign prostatic hyperplasia with lower urinary tract symptoms; R39.12 - Poor urinary stream (2) Elevated prostate specific antigen [PSA]: Code(s): R97.20 - Elevated prostate specific antigen [PSA] Category: Medical (3) Erectile dysfunction due to arterial insufficiency: Code(s): N52.01 - Erectile dysfunction due to arterial insufficiency Category: Medical Plan Adjust medications Three-month follow-up tele Medications: New tadalafil 5 mg PO DAILY 90 tabs 1RF 90 days N40.1 - Benign prostatic hyperplasia with lower urinary tract symptoms, R39.12 - Poor urinary stream Refilled finasteride 5 mg PO DAILY 90 tabs 3RF 90 days N40.1 - Benign prostatic hyperplasia with lower urinary tract symptoms, R39.12 - Poor urinary stream Discontinued tamsulosin Discontinued Reason: Patient Completed Course 0.4 mg PO DAILY 90 caps 3RF N40.1 - Benign prostatic hyperplasia with lower urinary tract symptoms, R39.12 - Poor urinary stream Patient Instructions: This note is constructed using voice recognition software. While every effort has been made to ensure accuracy tester food products errors may have been included. Imaging studies, laboratory and physical exam results were discussed and reviewed in detail. No major barriers to patient understanding were identified. An opportunity to ask questions regarding the treatment plan was provided. All questions were answered. The patient expressed understanding and agreement with the above treatment plan. The patient is aware they should contact our office by phone for worsening of their current condition or the appearance of new urologic symptoms. Compliance is encouraged with any medications and followup testing that is ordered. It is a privilege to participate in the urologic care of your patient. If you have any questions or concerns regarding treatment for the above conditions, or other urologic issues, please do not hesitate to contact me. The office telephone contact is [phone]. Sincerely, Dr Oniel Rowe MD, [facility] - Urology Compassionate Specialist Care for the Genitourinary System Coding Level of Care Code Est Pt Level 4 (01680) Diagnoses Benign prostatic hyperplasia with weak urinary stream N40.1; R39.12 Lower urinary tract symptom presence: symptoms present Lower urinary tract symptom detail: weak urinary stream Elevated prostate specific antigen [PSA] R97.20 Erectile dysfunction due to arterial insufficiency N52.01
--- OUTSIDE RECORDS SUMMARY | 2025-06-09 11:57 | XMS_ITS | Clinical Summary ---
Author Organization [facility] [address] [place] [address] [address] [place] [address] Phone Care Team Providers Care Multimedia Engineer Name Role Phone Reji Elizalde Primary Care Provider [phone] Allergies Active Allergy Reactions Criticality Noted Date [...] exercise. Obstructive sleep apnea 11/24/2020 Overview (12/03/2023): [facility] Home Sleep Apnea Test: [...] Description 05/04/2025 2:03 PM EDT Anesthesia Event [facility] [address] [place] [address] Thierry Aldana MD Steele, Matthew G, CRNA 05/04/2025 12:10 PM EDT - 05/04/2025 11:59 PM EDT Hospital Encounter [facility] [address] [place] [address] Carmen Winter MD Steele, Matthew [...] three years COLONOSCOPY W/ POLYPECTOMY 03/01/14 PROCEDURE: MD COLSC FLX W/RMVL OF TUMOR POLYP LESION [...] 1:00 PM EDT Office Visit Adult Medicine [address] [address] Reji Elizalde PA [address] [place] [address] 01/25/2026 1:00 PM EDT Office Visit [address] [address] Reji Elizalde PA [address] [place] [address] Health Maintenance Due Date Last Done Comments Social Influencers of Health Screening 09/06/2022 RSV Immunization Adult Patients (1 - 1-dose 75+ series) 2025 04/07/2024 COVID-19 Vaccine ( season) 2025 06/24/2024, 12/25/2021, 01/06/2021, Additional history exists Influenza Vaccine (#1) 2025 , 06/04/2023, 06/05/2022, Additional history exists Medicare Annual Wellness Visit 10/06/2025 10/06/2024 Falls Risk Assessment 05/04/2026 05/04/2025 , 10/06/2024, 02/03/2023 Hypertension/CHF/CAD Annual BMP Blood Test 05/24/2026 05/24/2025, 10/08/2024, 04/29/2024 Cholesterol Screening (Lipid Panel) 10/08/2029 [...] Procedure Name Priority Date/Time Associated Diagnosis Comments BASIC METABOLIC PANEL Routine 05/24/2025 1:45 PM EDT Hypocalcemia VITAMIN D 25 HYDROXY Routine 05/24/2025 1:45 PM EDT Hypocalcemia PARATHYROID HORMONE INTACT Routine 05/24/2025 1:45 PM EDT Hypocalcemia EXTERNAL CLINICAL LAB 05/24/2025 COLONOSCOPY Routine 05/04/2025 2:17 PM EDT Hx of colonic polyps TISSUE EXAM Routine 05/04/2025 2:12 PM EDT Hx of colonic polyps LIPID PANEL WITH REFLEX TO DIRECT LDL [...] Recently Relevant to Health Maintenance Results * Vitamin D 25 hydroxy (05/24/2025 1:45 PM EDT) Vit D, 25-Hydroxy 40.7 30.0 - 80.0 ng/mL LAB CHEMISTRY METHOD 05/24/2025 6:39 PM EDT [facility] Blood Venous blood specimen / Unknown Venipuncture / Unknown 05/24/2025 1:45 PM EDT 05/24/2025 1:45 PM EDT Reji LUDWIG LAB BLOOD ORDERABLES Taylor l Result [facility] [address] [place] [address], [place] [phone] * Parathyroid hormone intact (05/24/2025 1:45 PM EDT) PTH 75.0 18.5 - 88.0 pcg/mL LAB CHEMISTRY METHOD 05/24/2025 6:39 PM EDT [facility] Blood Venous blood specimen / Unknown Venipuncture / Unknown 05/24/2025 1:45 PM EDT 05/24/2025 1:45 PM EDT Reji LUDWIG LAB BLOOD ORDERABLES Taylor l Result [facility] [address] [place] [address], * (ABNORMAL) Basic metabolic panel (05/24/2025 1:45 PM EDT) Pathologist [facility] Sodium 141 133 - 145 mmol/L LAB CHEMISTRY METHOD 05/24/2025 5:04 PM [facility] Potassium 4.9 3.5 - 5.5 mmol/L LAB CHEMISTRY METHOD 05/24/2025 5:04 PM [facility] Chloride 109 96 - 110 mmol/L LAB CHEMISTRY METHOD 05/24/2025 5:04 PM [facility] CO2 27 21 - 32 mmol/L LAB CHEMISTRY METHOD 05/24/2025 5:04 PM [facility] Anion Gap 5 3 - 11 LAB CHEMISTRY METHOD 05/24/2025 5:04 PM [facility] Glucose 108(H) 70 - 100 mg/dL LAB CHEMISTRY METHOD 05/24/2025 5:04 PM [facility] BUN 23 5 - 25 mg/dL LAB CHEMISTRY METHOD 05/24/2025 5:04 PM [facility] Creatinine 1.56(H) 0.70 - 1.30 mg/dL LAB CHEMISTRY METHOD 05/24/2025 5:04 PM [facility] eGFR 46(L) >=60 mL/min/1. 73m2 LAB CHEMISTRY METHOD 05/24/2025 5:04 PM [facility] Comment:Calculation based on the Chronic Kidney Disease Epidemiology Collaboration (CKD-EPI) equation refit without adjustment for race. BUN/Creatinine Ratio 14.7 LAB CHEMISTRY METHOD 05/24/2025 5:04 PM EDT [facility] Calcium 8.8 8.5 - 10.5 mg/dL LAB CHEMISTRY METHOD 05/24/2025 5:04 PM EDT [facility] Blood Venous blood specimen / Unknown Venipuncture / Unknown 05/24/2025 1:45 PM EDT 05/24/2025 1:45 PM EDT Reji LUDWIG LAB BLOOD ORDERABLES Taylor l Result [facility] [address] [place] [address], [place] [phone] * External clinical lab (05/24/2025) Provider [facility] LAB BLOOD ORDERABLES Fin al Result * [facility]OS[facility] - [facility] (05/04/2025 2:17 PM EDT) Anatomical Region [...] for surveillance. Narrative 05/04/2025 2:18 PM EDT [facility] Patient Name: Pj Shaikh Procedure Date: 05/04/2025 2:03 PM Date of : 1950 Age: 75 Gender: Male Note Status: Finalized Attending MD: Carmen Winter MD, Procedure Date No Time: 05/04/2025 Procedure: Colonoscopy Indications: High risk colon cancer surveillance: Personal history of colonic polyps, Last colonoscopy: August 2019 Providers: Carmen Winter MD Referring MD: Cramen Winter MD Medicines: Monitored Anesthesia Care Complications: [...] verified by the physician, the nurse, the cigarette tipper and the cartography technician in the pre-procedure area in the [...] retroflexion views. Procedure Code(s): --- Professional --- 18597, Colonoscopy, flexible; with biopsy, single or multiple Diagnosis Code(s): --- Professional --- D12.5, Benign neoplasm of sigmoid colon D12.3, Benign neoplasm of transverse colon (hepatic flexure or splenic flexure) CPT copyright 2020 [employer]. All rights reserved. The codes documented in this report are preliminary and upon pest control specialist review may be revised to meet current compliance requirements. Carmen Winter MD 05/04/2025 2:18:13 PM This report has been signed electronically.Carmen Winter MD Number of Addenda: 0 Note Initiated On: 05/04/2025 2:03 PM Scope Withdrawal Time: 0 hours 6 minutes 37 seconds Scope In: 2:08:31 PM Scope Out: 2:16:53 PM Endoscopy Department at [facility] - [address] [place] [phone] Procedure Note Carmen Winter MD - 05/04/2025 [facility] Patient Name: Pj Shaikh Procedure Date: [...] the physician, the nurse, theanesthetist and the cartography technician in the pre-procedure area in the [...] retroflexion views. Procedure Code(s): --- Professional --- 47414, Colonoscopy, flexible; with biopsy, singleor multiple Diagnosis Code(s): --- Professional --- D12.5, Benign neoplasm of sigmoid colon D12.3, Benign neoplasm of transverse colon (hepatic flexure or splenic flexure) CPT copyright 2020 [employer]. All rights reserved. The codes documented in this report are preliminary and upon pest control specialist reviewmay be revised to meet current compliance requirements. Carmen Winter MD 05/04/2025 2:18:13 PM This report has been signed electronically.Carmen Winter MD Number of Addenda: 0 Note Initiated On: 05/04/2025 2:03 PM Scope Withdrawal Time: 0 hours 6 minutes 37 seconds Scope In: 2:08:31 PM Scope Out: 2:16:53 PM Endoscopy Department at [facility] - [address] [place] [phone] IMPRESSION: - Three diminutive polyps in the sigmoid colon and in the transverse colon, removed with a jumbo cold forceps. Resected and retrieved. - The examination was otherwise normal on directand retroflexion views. Recommendation: - Discharge patient to home. - Await pathology results. - Repeat colonoscopy in 5 years for surveillance. us Carmen Winter MD GI~PROCEDURE ORDERABLES Fin al Result * Tissue exam (05/04/2025 2:12 PM EDT) Final Diagnosis A. Transverse Colon, polyp: Tubular adenoma. B. Sigmoid Colon, polyp: Hyperplastic polyp. 05/05/2025 2:14 PM EDT [facility] Gross Description A. Large Intestine, [...] survive processing. hs/DG 05/05/2025 2:14 PM EDT [facility] Disclaimer Unless otherwise specified, all tissue is 10% NB formalin fixed and paraffin embedded. 05/05/2025 2:14 PM EDT [facility] Tissue Transverse colon structure / Unknown 05/04/2025 2:12 PM EDT 05/04/2025 3:52 PM EDT Tissue specimen (specimen) Sigmoid colon structure / Unknown 05/04/2025 2:13 PM EDT 05/04/2025 3:52 PM EDT Carmen Winter MD LAB PATHOLOGY ORDERABLES Fi nal Result [facility] [address] [place] [address], [place] [phone] * (ABNORMAL) Lipid panel with reflex to direct LDL (10/08/2024 3:41 PM EST) Cholesterol 146 0 - 200 mg/dL LAB CHEMISTRY METHOD 10/09/2024 12:24 AM EST [facility] Triglycerides 192(H) 0 - 150 mg/dL LAB CHEMISTRY METHOD 10/09/2024 12:24 AM EST [facility] HDL 35(L) >=40 mg/dL LAB CHEMISTRY METHOD 10/09/2024 12:24 AM EST [facility] LDL Calculated 73 0 - 100 mg/dL LAB CHEMISTRY METHOD 10/09/2024 12:24 AM [facility] VLDL Cholesterol Aristides 38.4 mg/dL LAB CHEMISTRY METHOD 10/09/2024 12:24 AM EST [facility] Non HDL Chol. (LDL+VLDL) 111 <145 mg/dL LAB CHEMISTRY METHOD 10/09/2024 12:24 AM EST [facility] Chol/HDL Ratio 4.2 0.0 - 4.4 LAB CHEMISTRY METHOD 10/09/2024 12:24 AM [facility] Blood Venous blood specimen / Unknown Venipuncture / Unknown 10/08/2024 3:41 PM EST 10/08/2024 3:41 PM EST Reji LUDWIG LAB BLOOD ORDERABLES Taylor l Result [facility] [address] [place] [address], [place] [phone] from Last 3 Months or Most Recently Relevant to Health Maintenance Insurance [employer] MED[employer]AGE Care Teams Multimedia Engineer Relationship Specialty Start Date End Date Reji Elizalde PA [address] [facility] [place] [phone] PCP - General Internal Medicine 06/15/21
== END 2025-06-09 10:31 | disposition home or self-care (01) ==
LOC: HO.HUSH 09:58
PROVIDERS: PCP Physician Assistant Medical; Visit Provider Urology
DX: N40.1 Benign prostatic hyperplasia with lower urinary tract symptoms (principal); R39.12 Poor urinary stream; R97.20 Elevated prostate specific antigen [PSA]; N52.01 Erectile dysfunction due to arterial insufficiency; Z13.9 Encounter for screening, unspecified
CPT/HCPCS: 99214

== ENCOUNTER → 2025-06-09 09:58 | Outpatient (BNVA) | payer MEDICARE, SELFPAY | PROVIDERS: PCP Physician Assistant Medical; Visit Provider Urology | DX: N40.1 Benign prostatic hyperplasia with lower urinary tract symptoms (principal); N13.8 Other obstructive and reflux uropathy; R39.12 Poor urinary stream; R97.20 Elevated prostate specific antigen [PSA]; N52.01 Erectile dysfunction due to arterial insufficiency; Z13.9 Encounter for screening, unspecified | CPT/HCPCS: 51798; 81003; 99212 ==

== ENCOUNTER 2025-09-08 13:59 | Outpatient (AMB) | payer MEDICARE, SELFPAY ==
--- NOTE | 2025-09-08 14:01 | A.OFFVIS_ITS ---
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 B12 and TSH were normal. A neuropsychological test in July of 2024 revealed mild cognitive disorder with no significant behavioral issues. He was taking sertraline 50 mg a day and was wondering if he could stop it. He has not noted any significant change in his overall problem. He is presenting for a neurology follow-up visit. He reports his mood is okay and continues to take sertraline 50 mg for anxiety, although he is uncertain of its benefit. The patient reports some forgetfulness, such as entering a room and not remembering the reason, and inquired about dementia. 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 His sleep is generally good, but he wakes up a couple of times during the night to urinate, which he attributes to prostate problems. He denies significant pain. He reports a history of alcohol use but is no longer drinking. [facility] Medical History (Updated 06/09/25 @ 10:29 by Oniel Rowe MD) HLD (hyperlipidemia) HTN (hypertension) Stress Migraine Depression with anxiety Insomnia POOJA (obstructive sleep apnea) Mild cognitive impairment Elevated prostate specific antigen [PSA] BPH (benign prostatic hyperplasia) Increased prostate specific antigen (PSA) velocity Social History Household Members: Spouse Review of Systems Narrative - Psychiatric: Reports his mood is okay. - Neurological: Reports episodes of forgetfulness and a mild hand tremor. - Denies significant pain. - Genitourinary: Reports nocturia, waking a couple of times per night to urinate. - Constitutional: Denies fatigue from medication. Assessment & Plan Assessment & Plan (1) Mild cognitive impairment: Comment: Neuropsychological eval at off in Jul 2024: [facility]. Code(s): G31.84 - Mild cognitive impairment of uncertain or unknown etiology Category: Medical Plan Impression: [facility]CI with mild anxiety Sertraline 50mg tab, take 1/2 a day I discussed the management of the patient's anxiety with him, and we agreed to try a lower dose of sertraline. I instructed him to reduce the dose from 50 mg to 25 mg by cutting the pills in half and to change the timing to the morning for better daytime effect. I addressed his concerns regarding forgetfulness and hand tremor, reassuring him that these were mild, age-related changes and not indicative of Alzheimer's disease. I advised him to follow up in 6 months for continued monitoring. Coding Level of Care Code Est Pt Level 3 (36855) Diagnoses Mild cognitive impairment G31.84
--- OUTSIDE RECORDS SUMMARY | 2025-09-08 21:28 | XMS_ITS | Data Portability ---
Author Organization [place] - [facility], Allergy Address [address] [place] [address] Care Team Providers Care Senior Environmental Consultant Name Role Phone PATRICIO ABDULLAHI Primary Care [...] IT issues. Will schedule at his [facility] available 04/07/2024 14:23:28 04/23/2024 04/23/2024 Patient [...] Both aids working fine. Annual appt made Not available 06/24/2024 16:06:24 01/06/2025 01/06/2025 both aids completely plugged. Chhaned wax guards. Both aids working fine now. [email or web address] Not available 01/06/2025 13:17:03 Plan of Treatment Reminders Order Date Submit Date Provider Last Modified By Organization Details Last Modified Time Details Appointments None recorded. Lab unlisted lab - allergens, zone 1 2024 025 [place], [address] [facility], [place], [address], 5 16:50:00 ige, total, serum 2024 025 [place] [facility], [address] [place] [address], [address], 16:50:01 CBC w/ auto diff 2024 025 [place] [facility], [address], [place], [address], 16:49:59 Referral None recorded. Procedures None recorded. Surgeries None recorded. Imaging CT, sinuses, w/o contrast [address]23 [address], [address] [place] [address], [address], 4 16:19:51 CT, maxillofac ial, w/o contrast - KF to schedule 2023 024 [email or web address] Not available 11:54:30 Medication Orders None recorded. Patient TargetsNo targets recorded. Patient Instructions Encounter Date Encounter Id Patient Instructions Last Modified By Organization Details Last Modified Time 01/25/2025 [id number] Patient interested in pursuing allergy immunotherapy. We discussed that since his symptoms are relatively controlled with antihistamines and occasional use of nasal steroids, that would likely not be helpful at his age. We will check an IgE level and a RAST panel to see if we can identify what he is allergic to and work on environmental controls as well hong Not available 01/25/2025 14:15:37 Reason for Referral None Reported. Results Created Date Observation Date Name Description Value Unit Range Abnormal Flag Note LastModifiedBy Organization Detail LastModifiedTime 04/23/[address], sinus es, w/o contr ast No observ ation record ed. hong [facility] Of [address], [address], 04/23/2024 16:02:42 05/05/20 24 04/23/2024 CT, sinus es, w/o contr ast No observ ation record ed. [email or web address] [place] [facility] [address] [facility] [address], [place], [address], 05/05/2024 16:06:47 05/18/20 24 06/13/2023 imagi ng/di agnos tic resul t No observ ation record ed. [email or web address] Not Available 19:48:07 05/18/20 24 06/16/2023 imagi ng/di agnos tic resul t No observ ation record ed. [email or web address] Not Available 19:48:12 05/18/20 24 06/16/2023 imagi ng/di agnos tic resul t No observ ation record ed. [email or web address] Not Available 19:48:15 05/18/20 24 06/16/2023 imagi ng/di agnos tic [...] Name and Address Organization Details Recorded Time Tinnitus of right ear 74934298190 08 Active 2022 Tinnitus, right ear; Note: Date Diagnosed : 06/13/2023 3:11 PM (H93.11) Not Available [facility] 02:28:59 Sensorine ural hearing loss of bilateral ears 644125274 Active 2022 Sensorine ural hearing loss, bilateral ; Note: Date Diagnosed : 06/13/2023 3:11 PM (H90.3) Not Available [facility] 02:28:56 Chronic maxillary sinusitis 97558031 Active 2022 Chronic maxillary sinusitis ; Note: Date Diagnosed : 07/02/2023 12:07 PM (J32.0) Not Available [facility] 02:29:32 Chronic right maxillary sinusitis 30110404026 467421 Active 2023 STEVEN SMITH MD [address] [facility],[place] [address], [place], [address] , [facility] - [facility] [place] 13:39:57 Deviated nasal septum 041269184 Active 2023 STEVEN SMITH MD [address] [place] [address],[place] [address], [place], [address] , [facility] - [facility] [place] 13:40:12 Chronic pain in face 258952038 Active 2023 STEVEN SMITH MD [address] [place] [address],[place] [address], [place], [address] , [facility] 14:24:26 Nasal congestio n 55895866 Active 2023 STEVEN SMITH MD [address] [place] [address],[place] [address], [place], [address] , [facility] 16:02:36 Allergic rhinitis 34905894 Active 2024 STEVEN SMITH MD [address] [facility],[place] [address], [place], [address] , [facility] - [facility] 5 14:14:39 Obstructi ve sleep apnea syndrome 71364012 Active 2024 STEVEN SMITH MD [address] [facility], [place], [address] , [facility] - [facility] [place] 5 14:14:48 Problem Notes None recorded. Procedures Surgical History Date Name Laterality Status Provider Name and Address Organization Details Recorded Time 4 JMSNasal/Sinus Endoscopy completed STEVEN MERLOS MD [address] [facility],[place] [address], [place], [address], [facility] 04/07/2024 13:39:50 Imaging Results None recorded. Procedure Notes None recorded. Medical Equipment None Reported. Allergies Allergen ID Allergen Name Allergen Category Reaction Reaction Severity Criticality Documentation Date Start Date Code Code System Note Provider Name and Address Organization Details Recorded Time 82666 Levaquin medicatio n hives Not available Not available 2024 76677 2 RxNorm React ion: Hives ; Not Available [facility] 4 00:54:16 Medications Name Sig [...] % eye drops active Medicati on ID: [id number] B rand Name: latanopr ost Send Method: [...] mg tablet 04/07 completed Medicati on ID: [id number] B rand Name: lisinopr il Send Method: E-Prescr ibed Sub s Allowed: subs OK Medic ationGen ericName : lisinopr il Medic ation ID: [id number] B rand Name: lisinopr il Send Method: E-Prescr ibed Sub s Allowed: subs OK Medic ationGen ericName : lisinopr il Not Available Not Available Not Available sertralin e 25 mg tablet active Medicati on ID: [id number] B rand Name: sertrali ne Send Method: [...] by mouth 2022 active Medicati on ID: [id number] D uration Value: 30 Brand Name: Culturel le Send Method: E-Prescr ibed Sub s [...] 10 mg tablet active Medicati on ID: [id number] B rand Name: loratavarsha ne Send Method: E-Prescr ibed Sub s [...] transderm al patch active Medicati on ID: 668014 B rand Name: rivastig mine Sen d [...] Updated DateTime 01/25/2025 160.02 cm 26.6 kg/m2 59286.86 g Lorraine Isaacs [facility] 01/25/2025 14:02:40 Date Recorded Body height Body mass index (BMI) Body weight Provider Name and Address Organization Details Last Updated DateTime 04/07/2024 160.02 cm 26.6 kg/m2 49038.86 g Rosendo Johnson [facility] 04/07/2024 13:18:13 Social History None recorded. Functional Status None recorded. Mental Status None recorded. Family History Nothing Reported. Medical History No medical history recorded. Past Encounters Encounter ID Performer Location Encounter Start Date Encounter Closed Date Diagnosis/Indication Diagnosis SNOMED-CT Code Diagnosis ICD10 Code Diagnosis IMO Codes Diagnosis Note [id number] STEVEN SMITH MD [facility] [address] [address] 04/07/2024 13:09:28 04/07/2024 16:24:31 Chronic right maxillary sinusitis 6542100916 4292345 J32.0 Deviated nasal septum 12 2828448 J34.2 Chronic pain in face 432 839878 R51.9 [id number] STEVEN SMITH MD [facility] [address] [address] 04/23/2024 15:16:33 04/23/2024 16:08:11 Nasal congestion 26890530 R09.81 Deviated nasal septum 12 7738703 J34.2 [id number] [facility] - [place] [address] [place], [place] [address]Rub[facility] [address] [place] [address] 06/24/2024 14:29:55 06/28/2024 07:00:55 Sensorineural hearing loss of bilateral ears 745865522 H90.3 [id number] [facility] [place] [address] [facility] [address] [place] [address] 01/06/2025 12:56:36 01/17/2025 12:38:37 Sensorineural hearing loss of bilateral ears 821773348 H90.3 [id number] STEVEN SMITH MD [facility] [address] [place] [address] 01/25/2025 13:45:02 01/25/2025 14:18:40 Allergic rhinitis 04027802 J30.89 Deviated nasal septum 12 7160591 J34.2 Obstructiv e sleep apnea syndrome 27524145 G47.33 Currently not using CPAP Health Concerns Section Related Observation LastModified by Organization Detai ls LastModified Time None Recorded Concern Status LastModified by Organization Details LastModified Time None Recorded Advance Directives Directive None Recorded Payers Insurance Date Sequence Insurance Name Policy Number Policy Nguyen Covered Member ID Nguyen Member ID Guarantor Name 01/25/2025 1 [place] [employer] Pj D [place] [id number] Pj [place] 01/25/2025 2 BCBS-ID ANSON ORTIZ [id number] Pj D [place] [id number] Pj [place] 07/11/2025 1 [employer] (MEDICARE REPLACEMENT/ ADVANTAGE - PPO) [id number] Pj D [place] [id number] Pj [place] Notes Date Note Type Note Provider [...] occasionally.History of hearing STEVEN MERLOS MD [address] [facility],[address], [address], [facility] - [facility] 04/07/2024 14:24:43 04/23/2024 text/html Patient seen in follow-up for right maxillary sinusitis related to dental infection. Still has right congestion despite FP and saline ST[facility] MD [facility] [place], [place], [address], [facility] - [facility] 04/23/2024 16:04:45 06/24/2024 text/html Patient has TruHearing [...] beige dispensed 11/11/2023 IVETH PADRON, AUD [address] [facility],[address], [address], [facility] - [facility] 06/24/2024 16:06:41 01/06/2025 text/html Patient has TruHearing [...] beige dispensed 11/11/2023 IVETH PADRON, AUD [address] [facility] [place],[address], [address], [facility] - [facility] 01/06/2025 15:49:08 01/25/2025 text/html ROS as noted in the HPI Hx of chronic nasal congestion/sneezing. Mostly controlled with oral antihistamines and occasional use of nasal steroids. He is interested in possible immunotherapy. He has multiple medical problems including cognitive impairment, septal deviation, reflux and possible asthma/COPD. STEVEN MERLOS MD [address] [place] [address], [place], [address], [facility] - [facility] 01/25/2025 14:17:31
--- OUTSIDE RECORDS SUMMARY | 2025-09-08 21:28 | XMS_ITS | Encounter Summary ---
Author Organization [facility] Address [address] [place] [address] Care Team Providers Care Reacher Name Role Phone Reji Elizalde Primary Care Provider [phone] Encounter Details Date Type Department Care Team (Late st Contact Info) Description 07/06/2025 Results Follow-Up Adult Medicine [facility] [address] [place], [place] [phone] Chika Flaherty PA [address] [place], [place] Social History Tobacco Use Types Packs/Day Years Used Date Smoking Tobacco: Former Cigarettes 1 Q uit: 09/29/1979 Smokeless Tobacco: Never Alcohol Use Standard Drinks/Week Comments Not Currently 0 (1 standard drink = 0.6 oz pur e alcohol) Housing Instability Answer Date Recorde d Are you worried that in the next 2 months you may not have stable housing? No 07/04/2025 Food Access & Nutrition Answer Date Rec orded Do you have access to a vari ety of food including fruits and vegetables? Yes 07/04/2025 Health Literacy Answer Date Recorded How often do you need to hav e someone help you when you read instructions, pamphlets, or other written material from your doctor or pharmacy? Never 07/04/2025 Caregiver: How often do you need to have someone help you when you read instructions, pamphlets, or other written material from your doctor or pharmacy? Not on file 07/04/2025 Financial Risk Answer Date Recorded How hard is it for you to pa y for the very basics like food, housing, medical care, and air conditioning / heating? Not very hard 07/04/2025 Transportation Answer Date Recorded Has the lack of transportati on kept you from meetings, work, or from getting things needed for daily living? No Has the lack of transportati on kept you from medical appointments or from getting medications? No 07/04/2025 Social Isolation Answer Date Recorded How often do you feel lonely or isolated from th ose around you? Never 07/04/2025 Food Risk Answer Date Recorded Within the past 12 months we worried whether our food would run out before we got money to buy more. Never true 07/04/2025 Within the past 12 months th e food we bought just didn't last and we didn't have money to get more. Never true 07/04/2025 Dependent Care Answer Date Recorded Do you need help finding or paying for care for your loved ones. For example, child welfare specialist or elderly care for an older adult? No 07/04/2025 Education Answer Date Recorded Do you think completing more education or training, like finishing a GED, going to college, or learning a trade, would be helpful for you? No 07/04/2025 Employment and Income Answer Date Recor ded During the last four weeks, have you been actively looking for work? No 07/04/2025 Living Situation Answer Date Recorded What is your living situation? Unrecognized valu e 07/04/2025 Interpersonal Safety Answer Date Record ed Physical Abuse Unrecognized value 05/04/2025 Verbal Abuse Unrecognized value 05/04/2025 Sex and Gender Information Value Date Recorded Sex Assigned at Not on file Legal Sex Male 11:27 AM EST Gender Identity Not on file Sexual Orientation Not on file documented as of this encounter Plan of Treatment Upcoming Encounters Date Type Department Care Team (Late st Contact Info) Description 01/25/2026 1:00 PM EDT Office Visit Adult Medicine [address] [address] Reji Elizalde PA [address] [place] [phone] documented as of this encounter Visit Diagnoses Not on filedocumented in this encounter Additional Health Concerns Assessment Noted Time PHQ-9 Depression Total Score: 0 10/06/19 11:18 AM EST A fall risk assessment has been complete d for the patient 10/06/2024 11:17 AM EST documented as of this encounter Care Teams Reacher Relationship Specialty Start Date End Date Reji Elizalde PA [address] [place] [address] PCP - General Internal Medicine 06/15/21 [facility] 09/29/24 documented as of this encounter
--- OUTSIDE RECORDS SUMMARY | 2025-09-08 21:28 | XMS_ITS | Clinical Summary ---
Author Organization [facility] [address] [place] [address] Address [address] [place] [address] Phone Care Team Providers Care Studio Manager Name Role Phone Reji Elizalde Primary Care Provider [phone] Allergies Active Allergy Reactions Criticality Noted Date Comments Ciprofloxacin Itching 09/30/2018 Got iv And got itching in arm Levofloxacin 02/03/2023 Sulfamethoxazole-Trimethoprim Rash 2017 Medications albuterol HFA (PROAIR HFA ; PROVENTIL HFA ; VENTOLIN HFA) 90 mcg/actuation inhaler Inhale 2 puffs by mouth. 4 Active escitalopram (LEXAPRO) 5 mg tablet Take 1 tablet (5 mg total) by mouth 1 (one) time each day. 4 Active loratadine (CLARITIN) 10 mg tablet Take 1 tablet (10 mg total) by mouth 1 (one) time each day. 4 Active sertraline (ZOLOFT) 25 mg tablet 1 tablet daily 3 Active fluticasone propionate (FLONASE) 50 mcg/actuation nasal spray Administer 2 sprays into affected nostril(s). 3 Active simethicone (Mylanta Gas) 125 mg chewable tablet Chew 1 tablet (125 mg total) every 6 (six) hours if needed for flatulence. 40 tablet 3 5 Active memantine (Namenda) 5 mg tabletIndications: Routine general medical examination at a health care facility,Primary hypertension,Scree walt for malignant neoplasm of colon,Acute nonintractable headache, unspecified headache type,Pure hypercholesterolem ia,Gastroesophagea l reflux disease without esophagitis,Mild cognitive impairment,Fatty liver,Obstructive sleep apnea,Hypertrophy of prostate without urinary obstruction,Memory loss,Depression, unspecified depression type Take 1 tablet (5 mg total) by mouth at bedtime. 90 each 3 5 Active calcium carbonate-cholecal ciferol (Calcium 500 + D) 500 mg-10 mcg (400 unit) per tablet Take 1 tablet by mouth 2 (two) times a day. 60 tablet 11 5 Active rivastigmine (EXELON) 9.5 mg/24 hour APPLY 1 PATCH ONTO THE SKIN EVERY DAY 90 patch 3 5 Active donepeziL (ARICEPT) 5 mg tablet Take 1 tablet (5 mg total) by mouth. Active finasteride (PROSCAR) 5 mg tablet Take 1 tablet (5 mg total) by mouth 1 (one) time each day. Active umeclidinium-vilan teroL (Anoro Ellipta) 62.5-25 mcg/actuation inhaler Inhale 1 puff by mouth 1 (one) time each day. Active simvastatin (ZOCOR) 20 mg tablet Take 1 tablet (20 mg total) by mouth at bedtime. 90 tablet 1 5 Active losartan (COZAAR) 50 mg tablet TAKE 1 TABLET BY MOUTH 1 TIME EACH DAY. 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 Recommend re-trying CPAP, antidepressant, psychotherapy, regular exercise. Obstructive sleep apnea 11/24/2020 Overview (12/03/2023): [facility] Home Sleep Apnea Test: Date 11/18/2020; Wt [...] Encounters Date Type Department Care Team Description 08/09/2025 Telephone Adult Medicine [facility] - [address] [phone] Reji Elizalde PA 08/08/2025 2:05 PM EST Lab Draw Station - [address] Proteinuria, unspecified type; Primary hypertension; Pure hypercholesterolemia ; Gastroesophageal reflux disease without esophagitis; Mild cognitive impairment; Obstructive sleep apnea; Memory loss; Hypertrophy of prostate without urinary obstruction 08/08/2025 1:30 PM EST Office Visit Adult Medicine [address] [phone] Reji Elizalde PA Proteinuria, unspecified type (Primary Dx); Primary hypertension; Pure hypercholesterolemia ; Gastroesophageal reflux disease without esophagitis; Mild cognitive impairment; Obstructive sleep apnea; Memory loss; Hypertrophy of prostate without urinary obstruction 07/06/2025 8:10 AM EDT - 07/06/2025 11:59 PM EDT Hospital Encounter Radiology Department - [place] [address] [place], [place] [phone] Proteinuria, unspecified type; Elevated LFTs Discharge Disposition: Home or Self Care 07/06/2025 Results Follow-Up [address] [phone] Chika Flaherty PA 07/04/2025 8:00 AM EDT Office Visit [address] [phone] Chika Flaherty PA Primary hypertension (Primary Dx); Pure hypercholesterolemia ; Proteinuria, unspecified type; Elevated LFTs; Overweight (BMI 25.0-29.9) from Last 3 Months Immunizations Immunization Administration Dates Next Due Influenza Quadravalent, MDCK , 0.5ml, preservative free (Flucelvax) 6mo and older 10/13/2019,09/28/2018 Influenza Quadravalent, MDCK , 0.5ml, with preservative (Flucelvax) 6mo and older 08/13/2017 Influenza trivalent, 0.5mL ( Fluzone High-dose) 65yo and older 06/11/2025,06/04/2023,06/05/2022,06/20,07/26/2020 Influenza trivalent, with pr eservative (Fluzone; Afluria) [...] three years COLONOSCOPY W/ POLYPECTOMY 03/01/14 PROCEDURE: TX COLSC FLX W/RMVL OF TUMOR POLYP LESION [...] 1 Q uit: 09/29/1979 Smokeless Tobacco: Never Tobacco [...] care for your loved ones. For example, manager child or elderly care for an older adult? [...] on file Sexual Orientation Not on file Last Filed Vital Signs Vital Sign Reading Time Taken Comments Blood Pressure 138/71 08/08/2025 1:24 PM EST Pulse 74 08/08/2025 1:24 PM EST Temperature 36.4 C (97.5 F) 08/08/2025 1:24 PM EST Respiratory Rate 15 08/08/2025 1:24 PM EST Oxygen Saturation 97% 08/08/2025 1:24 PM EST Inhaled Oxygen Concentration - - Weight 68.9 kg (152 lb) 08/08/2025 1:24 PM EST Height 160 cm (5' 3 ) 08/08/2025 1:24 PM EST Body Mass Index 26.93 08/08/2025 1:24 PM EST Plan of Treatment Upcoming Encounters Date Type Department Care Team (Late st Contact Info) Description 01/25/2026 1:00 PM EDT Office Visit Adult Medicine [address] [phone] Reji Elizalde PA [address] [place] [phone] Health Maintenance Due Date Last Done Comments RSV Immunization Adult Patients (1 - 1-dose 75+ series) 2025 04/07/2024 Medicare Annual Wellness Visit 10/06/2025 10/06/2024 Falls Risk Assessment 05/04/2026 05/04/2025 , 10/06/2024, 02/03/2023 Social Influencers of Health Screening 07/04/2026 07/04/2025 Hypertension/CHF/CAD Annual BMP Blood Test 07/06/2026 07/06/2025, 05/24/2025, 10/08/2024, Additional history exists Colorectal Cancer Screening: Colonoscopy 05/04/2030 05/04/2025, 09/01/2019 Cholesterol Screening (Lipid Panel) 07/06/2030 07/06/2025, 10/08/2024, 04/29/2024, Additional history exists DTaP,Tdap,and Td Vaccines (4 - Td or Tdap) 02/03/2033 02/03/2023, 06/16/2012, 04/14/2002 Hepatitis C Screening Addressed 06/09/2013 Overri dden with the intention of not completing the topic Pneumococcal Vaccine: 50+ Years Completed 10/13/2019, 10/04/2015, 02/11/2012 RSV Immunization Patients Under 20 months Aged Out 04/07/2024 No longer eligible based on patient's age to complete this topic COVID-19 Vaccine Discontinued 06/24/2024, , 01/06/2021, Additional history exists Zoster Vaccines Completed 06/24/2024, 03/29, 06/09/2013 Influenza Vaccine Completed 06/11/2025, , 06/05/2022, Additional history exists Depression Screening Completed 08/07/2025 Abdominal Aortic Aneurysm (AAA) Screen Discontinued HIB [...] Procedure Name Priority Date/Time Associated Diagnosis Comments URINALYSIS WITH REFLEX MICROSCOPIC Routine 08/08/2025 2:59 PM EST Proteinuria, unspecified type Primary hypertension Pure hypercholesterolemia Gastroesophageal reflux disease without esophagitis Mild cognitive impairment Obstructive sleep apnea Memory loss Hypertrophy of prostate without urinary obstruction MICROALBUMIN CREATININE URINE RATIO Routine 08/08/2025 2:59 PM EST Proteinuria, unspecified type Primary hypertension Pure hypercholesterolemia Gastroesophageal reflux disease without esophagitis Mild cognitive impairment Obstructive sleep apnea Memory loss Hypertrophy of prostate without urinary obstruction URINALYSIS WITH REFLEX MICROSCOPIC Routine 08/08/2025 2:59 PM EST Proteinuria, unspecified type Primary hypertension Pure hypercholesterolemia Gastroesophageal reflux disease without esophagitis Mild cognitive impairment Obstructive sleep apnea Memory loss Hypertrophy of prostate without urinary obstruction CBC WITH AUTO DIFFERENTIAL Routine 07/06/2025 8:47 AM EDT Primary hypertension Pure hypercholesterolemia MORRIS URINE CULTURE TUBE Routine 07/06/2025 8:47 AM EDT Proteinuria, unspecified type URINALYSIS WITH REFLEX MICROSCOPIC AND CULTURE Routine 07/06/2025 8:47 AM EDT Proteinuria, unspecified type COMPREHENSIVE METABOLIC PANEL Routine 07/06/2025 8:47 AM EDT Primary hypertension Pure hypercholesterolemia CBC AND DIFFERENTIAL Routine 07/06/2025 8:47 AM EDT Primary hypertension Pure hypercholesterolemia URINALYSIS WITH REFLEX MICROSCOPIC AND CULTURE Routine 07/06/2025 8:47 AM EDT Proteinuria, unspecified type LIPID PANEL WITH REFLEX TO DIRECT LDL Routine 07/06/2025 8:47 AM EDT Primary hypertension Pure hypercholesterolemia CULTURE URINE Routine 07/06/2025 8:47 AM EDT Proteinuria, unspecified type US ABDOMEN COMPLETE Routine 07/06/2025 8 :33 AM EDT Proteinuria, unspecified type Elevated LFTs COLONOSCOPY Routine 05/04/2025 2:17 PM EDT Hx of colonic polyps from Last 3 Months or Most Recently Relevant to Health Maintenance Results * (ABNORMAL) Urinalysis with reflex microscopic (08/08/2025 2:59 PM EST) Specific [place] Urine 1.020 1.003 - 1.030 LAB URINALYSIS - AUTOMATED METHOD 08/08/2025 5:08 PM [facility] pH, Urine 7.5 5.0 - 8.0 pH LAB URINALYSIS - AUTOMATED METHOD 08/08/2025 5:08 PM [facility] Leukocytes, Urine Negative Negative LAB URINALYSIS - AUTOMATED METHOD 08/08/2025 5:08 PM [facility] Nitrite, Urine Negative Negative LAB URINALYSIS - AUTOMATED METHOD 08/08/2025 5:08 PM [facility] Protein, Urine 100(A) <=Trace mg/dL LAB URINALYSIS - AUTOMATED METHOD 08/08/2025 5:08 PM [facility] Glucose, Urine Negative Negative mg/dL LAB URINALYSIS - AUTOMATED METHOD 08/08/2025 5:08 PM [facility] Ketones, Urine Negative Negative mg/dL LAB URINALYSIS - AUTOMATED METHOD 08/08/2025 5:08 PM [facility] Urobilinogen, Urine 1.0 0.2 - 1.0 mg/dL LAB URINALYSIS - AUTOMATED METHOD 08/08/2025 5:08 PM [facility] Bilirubin, Urine Negative Negative LAB URINALYSIS - AUTOMATED METHOD 08/08/2025 5:08 PM [facility] Blood, Urine Negative Negative LAB URINALYSIS - AUTOMATED METHOD 08/08/2025 5:08 PM [facility] RBC, Urine 0 0 - 4 /HPF 08/08/2025 5:08 PM [facility] WBC, Urine 10(H) 0 - 4 /HPF 08/08/2025 5:08 PM [facility] Squamous Epithelial, Urine 10 0 - 60 /LPF 08/08/2025 5:08 PM [facility] Bacteria, Urine Negative Negative /HPF 08/08/2025 5:08 PM [facility] Hyaline Casts, Urine 3 0 - 3 /LPF 08/08/2025 5:08 PM [facility] Urine Urine specimen obtained by clean catch procedure / Unknown Non-blood Collection / Unknown 08/08/2025 2:59 PM EST 08/08/2025 2:59 PM EST us Reji LUDWIG LAB URINE ORDERABLES Taylor rowell Result [facility] [address] [place] [address], [place] [phone] * (ABNORMAL) Microalbumin creatinine urine ratio (08/08/2025 2:59 PM EST) Pathologist [facility] Creatinine, Urine 146.0 mg/dL LAB CHEMISTRY METHOD 08/08/2025 9:34 PM EST [facility] Microalb, Ur 628.0(H) 0.0 - 29.0 mg/L LAB CHEMISTRY METHOD 08/08/2025 9:34 PM EST [facility] Microalb/Crea t Ratio 430(H) <30 mg/g creat LAB CHEMISTRY METHOD 08/08/2025 9:34 PM EST [facility] Urine Urine specimen obtained by clean catch procedure / Unknown Non-blood Collection / Unknown 08/08/2025 2:59 PM EST 08/08/2025 2:59 PM EST Reji LUDWIG LAB URINE ORDERABLES Taylor l Result Performing Organization Address [facility]/ZIP Co de Phone Number [facility] [address] [place] [address], [place] [phone] * (ABNORMAL) Urinalysis with reflex microscopic and culture (07/06/2025 8:47 AM EDT) [facility] Specific [place] Urine 1.021 1.003 - 1.030 LAB URINALYSIS - AUTOMATED METHOD 07/06/2025 10:18 AM EDT [facility] pH, Urine 5.5 5.0 - 8.0 pH LAB URINALYSIS - AUTOMATED METHOD 07/06/2025 10:18 AM EDT [facility] Leukocytes, Urine Trace(A) Negative LAB URINALYSIS - AUTOMATED METHOD 07[facility]06[facility]25 [facility] Nitrite, Urine Negative Negative LAB URINALYSIS - AUTOMATED METHOD 07/06/2025 10:18 AM [facility] Protein, Urine 100(A) <=Trace mg/dL LAB URINALYSIS - AUTOMATED METHOD 07/06/2025 10:18 AM [facility] Glucose, Urine Negative Negative mg/dL LAB URINALYSIS - AUTOMATED METHOD 07/06/2025 10:18 AM [facility] Ketones, Urine Trace(A) Negative mg/dL LAB URINALYSIS - AUTOMATED METHOD 07/06/2025 10:18 AM [facility] Urobilinogen, Urine 1.0 0.2 - 1.0 mg/dL LAB URINALYSIS - AUTOMATED METHOD 07/06/2025 10:18 AM [facility] Bilirubin, Urine Negative Negative LAB URINALYSIS - AUTOMATED METHOD 07/06/2025 10:18 AM [facility] Blood, Urine Negative Negative LAB URINALYSIS - AUTOMATED METHOD 07/06/2025 10:18 AM [facility] RBC, Urine 1.9 0 - 4 /HPF LAB URINALYSIS - AUTOMATED METHOD 07/06/2025 10:18 AM [facility] WBC, Urine 8.7(H) 0 - 4 /HPF LAB URINALYSIS - AUTOMATED METHOD 07/06/2025 10:18 AM [facility] Squamous Epithelial, Urine 31 0 - 60 /LPF LAB URINALYSIS - AUTOMATED METHOD 07/06/2025 10:18 AM [facility] Bacteria, Urine Negative Negative /HPF LAB URINALYSIS - AUTOMATED METHOD 07/06/2025 10:18 AM [facility] Hyaline Casts, Urine 1.2 0 - 3 /LPF LAB URINALYSIS - AUTOMATED METHOD 07/06/2025 10:18 AM [facility] Urine Urine specimen obtained by clean catch procedure / Unknown Non-blood Collection / Unknown 07/06/2025 8:47 AM EDT 07/06/2025 8:47 AM EDT Chika LUDWIG LAB URINE ORDERABLES Final Resu lt Performing Organization Address [facility]/ZIP Co de Phone Number [facility] [address] [place] [address], [place] [phone] * Morris urine culture tube (07/06/2025 8:47 AM EDT) Pathologist [facility] Extra Tube Hold for add-ons. 07/06/2025 10:01 AM EDT [facility] Comment:Auto resulted. Urine Urine specimen obtained by clean catch procedure / Unknown Non-blood Collection / Unknown 07/06/2025 8:47 AM EDT 07/06/2025 8:47 AM EDT Chika LUDWIG LAB URINE ORDERABLES Final Resu lt Performing Organization Address [facility] de Phone Number [facility] [address] [place] [address], [place] [phone] * (ABNORMAL) Lipid panel with reflex to direct LDL (07/06/2025 8:47 AM EDT) [facility] Cholesterol 158 0 - 200 mg/dL LAB CHEMISTRY METHOD 07/06/2025 12:29 PM EDT [facility] Triglycerides 191(H) 0 - 150 mg/dL LAB CHEMISTRY METHOD 07/06/2025 12:29 PM EDT [facility] HDL 34(L) >=40 mg/dL LAB CHEMISTRY METHOD 07/06/2025 12:29 PM EDT [facility] LDL Calculated 86 0 - 100 mg/dL LAB CHEMISTRY METHOD 07/06/2025 12:29 PM EDT [facility] Comment:Estimated LDL Calcul ated using equation: Total cholesterol - HDL cholesterol - (Triglycerides/5) VLDL Cholesterol Aristides 38.2 mg/dL LAB CHEMISTRY METHOD 07/06/2025 12:29 PM EDT [facility] Non HDL Chol. (LDL+VLDL) 124 <145 mg/dL LAB CHEMISTRY METHOD 07/06/2025 12:29 PM EDT [facility] Chol/HDL Ratio 4.6(H) 0.0 - 4.4 LAB CHEMISTRY METHOD 07/06/2025 12:29 PM [facility] Blood Venous blood specimen / Unknown Venipuncture / Unknown 07/06/2025 8:47 AM EDT 07/06/2025 8:47 AM EDT us Chika LUDWIG LAB BLOOD ORDERABLES Final Resu lt [facility] [address] [place] [address], [place] [phone] * (ABNORMAL) CBC auto differential (07/06/2025 8:47 AM EDT) WBC 9.3 4.8 - 10.8 K/mcL LAB HEMETOLOGY METHOD 07/06/2025 10:12 AM [facility] RBC 5.00 4.50 - 5.50 M/[facility] LAB HEMETOLOGY METHOD 07/06/2025 10:12 AM [facility] Hemoglobin 15.8 13.5 - 17.5 g/dL LAB HEMETOLOGY METHOD 07/06/2025 10:12 AM [facility] Hematocrit 46.2 42.0 - 54.0 % LAB HEMETOLOGY METHOD 07/06/2025 10:12 AM [facility] MCV 91.8 79.0 - 98.0 FL LAB HEMETOLOGY METHOD 07/06/2025 10:12 AM [facility] MCH 31.4 27.0 - 32.0 pcg LAB HEMETOLOGY METHOD 07/06/2025 10:12 AM [facility] MCHC 34.2 32.0 - 37.0 g/dL LAB HEMETOLOGY METHOD 07/06/2025 10:12 AM [facility] RDW 13.9 11.0 - 15.0 % LAB HEMETOLOGY METHOD 07/06/2025 10:12 AM [facility] Platelets 192 130 - 400 K/mcL LAB HEMETOLOGY METHOD 07/06/2025 10:12 AM [facility] MPV 11.6(H) 7.0 - 11.0 FL LAB HEMETOLOGY METHOD 07/06/2025 10:12 AM [facility] NRBC 0.0 <1.0 % LAB HEMETOLOGY METHOD 07/06/2025 10:12 AM [facility] NRBC Absolute 0.00 <0.10 K/mcL LAB HEMETOLOGY METHOD 07/06/2025 10:12 AM [facility] Neutrophils Relative 42.2 % LAB HEMETOLOGY METHOD 07/06/2025 10:12 AM [facility] Lymphocytes Relative 42.9 % LAB HEMETOLOGY METHOD 07/06/2025 10:12 AM [facility] Monocytes Relative 8.3 % LAB HEMETOLOGY METHOD 07/06/2025 10:12 AM [facility] Eosinophils Relative 5.5 % LAB HEMETOLOGY METHOD 07/06/2025 10:12 AM [facility] Basophils Relative 0.9 % LAB HEMETOLOGY METHOD 07/06/2025 10:12 AM [facility] Immature Granulocytes Relative 0.2 % LAB HEMETOLOGY METHOD 07/06/2025 10:12 AM [facility] Neutrophils Absolute 3.91 1.50 - 7.00 K/mcL LAB HEMETOLOGY METHOD 07/06/2025 10:12 AM [facility] Lymphocytes Absolute 3.97 1.00 - 5.00 K/mcL LAB HEMETOLOGY METHOD 07/06/2025 10:12 AM EDT [facility] Monocytes Absolute 0.77 0.20 - 1.00 K/mcL LAB HEMETOLOGY METHOD 07/06/2025 10:12 AM EDT [facility] Eosinophils Absolute 0.51(H) 0.00 - 0.50 K/[facility] LAB HEMETOLOGY METHOD 07/06/2025 10:12 AM EDT [facility] Basophils Absolute 0.08 0.00 - 0.20 K/[facility] LAB HEMETOLOGY METHOD 07/06/2025 10:12 AM EDT [facility] Immature Granulocytes Absolute 0.02 0.00 - 0.03 K/[facility] LAB HEMETOLOGY METHOD 07/06/2025 10:12 AM EDT [facility] Blood Venous blood specimen / Unknown Venipuncture / Unknown 07/06/2025 8:47 AM EDT 07/06/2025 8:47 AM EDT Chika LUDWIG LAB BLOOD ORDERABLES Final Resu lt [facility] [address] [place] [address], * (ABNORMAL) Culture urine (07/06/2025 8:47 AM EDT) Culture, Urine 10,000-49,000 CFU/mL Streptococcus viridans group(A) 07/07/2025 10:32 AM EDT [facility] Comment:Susceptibility testi ng not routinely performed. If further therapeutic information is required, please consult an infectious disease specialist. Urine Urine specimen obtained by clean catch procedure / Unknown Non-blood Collection / Unknown 07/06/2025 8:47 AM EDT 07/06/2025 10:18 AM EDT Narrative [facility] - 07/07/2025 10:32 AM EDT Additional colony types present in insignificant amounts. Chika LUDWIG LAB MICROBIOLOGY - GENERAL ANDRES FAJARDO Final Result [facility] [address] [place] [address], [place] [phone] * (ABNORMAL) Comprehensive metabolic panel (07/06/2025 8:47 AM EDT) Sodium 140 133 - 145 mmol/L LAB CHEMISTRY METHOD 07/06/2025 12:29 PM [facility] Potassium 4.5 3.5 - 5.5 mmol/L LAB CHEMISTRY METHOD 07/06/2025 12:29 PM [facility] Chloride 109 96 - 110 mmol/L LAB CHEMISTRY METHOD 07/06/2025 12:29 PM [facility] CO2 28 21 - 32 mmol/L LAB CHEMISTRY METHOD 07/06/2025 12:29 PM [facility] Anion Gap 3 3 - 11 LAB CHEMISTRY METHOD 07/06/2025 12:29 PM [facility] Glucose 87 70 - 100 mg/dL LAB CHEMISTRY METHOD 07/06/2025 12:29 PM [facility] BUN 22 5 - 25 mg/dL LAB CHEMISTRY METHOD 07/06/2025 12:29 PM [facility] Creatinine 1.40(H) 0.70 - 1.30 mg/dL LAB CHEMISTRY METHOD 07/06/2025 12:29 PM [facility] eGFR 52(L) >=60 mL/min/1. 73m2 LAB CHEMISTRY METHOD 07/06/2025 12:29 PM [facility] Comment:Calculation based on the Chronic Kidney Disease Epidemiology Collaboration (CKD-EPI) equation refit without adjustment for race. BUN/Creatinine Ratio 15.7 LAB CHEMISTRY METHOD 07/06/2025 12:29 PM EDT [facility] Calcium 8.7 8.5 - 10.5 mg/dL LAB CHEMISTRY METHOD 07/06/2025 12:29 PM [facility] AST (SGOT) 35 10 - 42 unit/L LAB CHEMISTRY METHOD 07/06/2025 12:29 PM [facility] ALT (SGPT) 46 10 - 60 unit/L LAB CHEMISTRY METHOD 07/06/2025 12:29 PM [facility] Alkaline Phosphatase 94 42 - 121 unit/L LAB CHEMISTRY METHOD 07/06/2025 12:29 PM [facility] Total Protein 6.8 6.0 - 8.0 g/dL LAB CHEMISTRY METHOD 07/06/2025 12:29 PM [facility] Albumin 3.9 3.2 - 5.0 g/dL LAB CHEMISTRY METHOD 07/06/2025 12:29 PM [facility] Total Bilirubin 0.9 0.0 - 1.4 mg/dL LAB CHEMISTRY METHOD 07/06/2025 12:29 PM [facility] Blood Venous blood specimen / Unknown Venipuncture / Unknown 07/06/2025 8:47 AM EDT 07/06/2025 8:47 AM EDT us Chika LUDWIG LAB BLOOD ORDERABLES Final Resu lt [facility] [address] [place] [address], [place] [phone] * US Abdomen Complete (07/06/2025 8:33 AM EDT) Anatomical Region Laterality Modality Body Ultrasound 07/06/2025 9:30 AM EDT Impressions 07/06/2025 9:32 AM EDT Hepatic steatosis. -------- FINAL REPORT -------- Dictated By: Monse Phillips Dictated Date: 07/06/2025 09:30 ET Assigned Physician: Monse Phillips Reviewed and Electronically Signed By: Monse Phillips Signed Date: 07/06/2025 09:32 ET Workstation ID: [id number] Transcribed By: Self Edit Transcribed Date: 07/06/2025 09:30 ET Narrative 07/06/2025 9:32 AM EDT ABDOMINAL ULTRASOUND History: Abnormal liver function tests. Proteinuria. Comparison: CT abdomen and pelvis 08/17/2020.. FINDINGS: There is no evidence of cholelithiasis. The common bile duct is not dilated, measuring 2 mm. The gallbladder wall is not thickened. No pericholecystic fluid is seen. No ascites are seen. The pancreas is obscured by overlying bowel gas. The liver measures 10.9 cm length and demonstrates echogenic echotexture. No focal lesions are seen in the liver and there is no evidence of intrahepatic ductal dilation. Normal hepatopedal flow is seen in the main portal vein. No evidence of hydronephrosis, mass, or calculus was seen in either kidney. The right kidney measures 9.5 cm in greatest length. The left kidney measures 8.6 cm in length. The spleen measures 8.7 cm in length. The visualized abdominal aorta and IVC are unremarkable. Procedure Note Monse Phillips MD - 07/06/2025 ABDOMINAL ULTRASOUND History: Abnormal liver function tests. Proteinuria. Comparison: CT abdomen and pelvis 08/17/2020.. FINDINGS: There is no evidence of cholelithiasis. The common bile duct isnot dilated, measuring 2 mm. The gallbladder wall is not thickened. Nopericholecystic fluid is seen. No ascites are seen. The pancreas is obscured by overlying bowel gas. The liver measures 10.9 cm length and demonstrates echogenic echotexture.No focal lesions are seen in the liver and there is no evidence ofintrahepatic ductal dilation. Normal hepatopedal flow is seen in the mainportal vein. No evidence of hydronephrosis, mass, or calculus was seen in eitherkidney. The right kidney measures 9.5 cm in greatest length. The leftkidney measures 8.6 cm in length. The spleen measures 8.7 cm in length. The visualized abdominal aorta and IVC are unremarkable. IMPRESSION: Hepatic steatosis. -------- FINAL REPORT -------- Dictated By: Monse Phillips Dictated Date: 07/06/2025 09:30 ET Assigned Physician: Monse Phillips Reviewed and Electronically Signed By: Monse Phillips Signed Date: 07/06/2025 09:32 ET Workstation ID: [id number] Transcribed By: Self Edit Transcribed Date: 07/06/2025 09:30 ET us Chika LUDWIG [facility] PROCEDURES Final Result * COLONOSCOPY Anesthesia - MAC; [facility] ENDOSCOPY (05/04/2025 2:17 PM EDT) Anatomical Region [...] for surveillance. Narrative 05/04/2025 2:18 PM EDT [facility] Patient Name: Pj Shaikh [...] verified by the physician, the nurse, the research program coordinator and the sound engineering technician in the pre-procedure area in the [...] retroflexion views. Procedure Code(s): --- Professional --- 21305, Colonoscopy, flexible; with biopsy, single or multiple Diagnosis Code(s): --- Professional --- D12.5, Benign neoplasm of sigmoid colon D12.3, Benign neoplasm of transverse colon (hepatic flexure or splenic flexure) CPT copyright 2020 [employer]. All rights reserved. The codes documented in this report are preliminary and upon contact lens assistant review may be revised to meet current compliance requirements. Carmen Winter MD 05/04/2025 2:18:13 PM This report has been signed electronically.Carmen Winter MD Number of Addenda: 0 Note Initiated On: 05/04/2025 2:03 PM Scope Withdrawal Time: 0 hours 6 minutes 37 seconds Scope In: 2:08:31 PM Scope Out: 2:16:53 PM Endoscopy Department at [facility] - [address] [place] [phone] Procedure Note Carmen Winter MD - 05/04/2025 [facility] Patient Name: Pj Shaikh [...] the physician, the nurse, theanesthetist and the sound engineering technician in the pre-procedure area in the [...] retroflexion views. Procedure Code(s): --- Professional --- 24193, Colonoscopy, flexible; with biopsy, singleor multiple Diagnosis Code(s): --- Professional --- D12.5, Benign neoplasm of sigmoid colon D12.3, Benign neoplasm of transverse colon (hepatic flexure or splenic flexure) CPT copyright 2020 [employer]. All rights reserved. The codes documented in this report are preliminary and upon contact lens assistant reviewmay be revised to meet current compliance requirements. Carmen Winter MD 05/04/2025 2:18:13 PM This report has been signed electronically.Carmen Winter MD Number of Addenda: 0 Note Initiated On: 05/04/2025 2:03 PM Scope Withdrawal Time: 0 hours 6 minutes 37 seconds Scope In: 2:08:31 PM Scope Out: 2:16:53 PM Endoscopy Department at [facility] - [address] [place] [phone] IMPRESSION: - Three diminutive polyps in the sigmoid colon and in the transverse colon, removed with a jumbo cold forceps. Resected and retrieved. - The examination was otherwise normal on directand retroflexion views. Recommendation: - Discharge patient to home. - Await pathology results. - Repeat colonoscopy in 5 years for surveillance. us Carmen Winter MD GI~PROCEDURE ORDERABLES Fin al Result from Last 3 Months or Most Recently Relevant to Health Maintenance Insurance [employer]ARE [employer] Care Teams Studio Manager Relationship Specialty Start Date End Date Reji Elizalde PA [address] [place] [address] PCP - General Internal Medicine 06/15/21 [facility] 09/29/24
== END 2025-09-08 14:15 | disposition home or self-care (01) ==
LOC: HO.HSM 14:00
PROVIDERS: PCP Internal Medicine; Visit Provider Psychiatry & Neurology Neurology
DX: G31.84 Mild cognitive impairment of uncertain or unknown etiology (principal)
CPT/HCPCS: 99213

== ENCOUNTER → 2025-09-08 13:59 | Outpatient (BNVA) | payer MEDICARE, SELFPAY | PROVIDERS: PCP Internal Medicine; Visit Provider Psychiatry & Neurology Neurology | DX: G31.84 Mild cognitive impairment of uncertain or unknown etiology (principal); F41.9 Anxiety disorder, unspecified | CPT/HCPCS: 99212 ==

== ENCOUNTER 2025-09-09 14:12 | Outpatient (AMB) | payer MEDICARE, SELFPAY ==
--- NOTE | 2025-09-09 14:12 | A.OFFVIS_ITS ---
Intake Visit Reasons: 3m follow up(Med Review) Intake Note: Reason for Visit: Telehealth Medication Review (Tadalafil) Urology Meds: Finasteride, Tadalafil Blood Thinners: None Labs: Last PSA 1.67(05/24/2025) Imaging: None Last PVR: 86ml PVR: Allergies levofloxacin (From LEVAQUIN) Allergy (Intermediate, Verified 09/09/25 14:24) RASH/HIVES anethseia Allergy (Unknown, Uncoded 09/09/25 14:24) redness and itching HPI Comments Details: Pj is a pleasant male. He is a patient of Dr. Elizalde. He is seen for the following urologic conditions - elevated PSA - lower urinary tract symptoms - erectile dysfunction Telemedicine Evaluation 15 min Consultation [employer] Sae Video Three-month follow-up after initiation daily tadalafil Did contribute headaches No much difference regarding bladder stability Discussed trial of overactive bladder medication Given his memory related issues beta agonist would be appropriate. Per EHR it appears that Teresa has insurance coverage. Prescription provided. UA noted 2+ protein Continue with combination therapy Last year finasteride reduced to Friday, Friday, Friday Three-month follow-up tele Lower urinary tract symptoms Longstanding Prior TURP 2009 PSA historically around 4. Prior negative biopsy. 11/20 4.4, 12/19 3.7 32%, 06/22 1.7, 05/23 1.7 Current medications include tamsulosin 0.4 mg daily Therapeutic plan - interval review [facility] Medical History (Updated 09/09/25 @ 14:33 by Oniel Rowe MD) HLD (hyperlipidemia) HTN (hypertension) Stress Migraine Depression with anxiety Insomnia POOJA (obstructive sleep apnea) Mild cognitive impairment Elevated prostate specific antigen [PSA] BPH (benign prostatic hyperplasia) Increased prostate specific antigen (PSA) velocity Social History Household Members: Spouse Review of Systems Const All systems reviewed & are unremarkable except as noted in HPI and below Denies chills and Denies fever(s) Card Reports no additional complaints and Denies syncope Resp Denies cough GI Denies abdominal pain and Denies heartburn Reports as per HPI and Denies change in libido Musc Reports no additional complaints Neuro Denies syncope Psych Denies change in libido Endo Denies change in libido Physical Exam Telemedicine evaluation Appropriate responses Regular breathing rate and rhythm Const General: cooperative, healthy appearing, comfortable and no acute distress Orientation/consciousness: patient oriented x3 HEENT Head: Yes normal to inspection Ears: hearing grossly normal bilaterally Face and sinus: Yes normal facial exam Mouth: moist mucous membranes Eyes General: appearance normal, both eyes and all related structures Neck Neck: Yes normal visual inspection, Yes full ROM and Yes trachea midline Chest Chest palpation & inspection: normal inspection of the chest Resp Effort & Inspection: normal respiratory effort, able to speak in complete sentences and no respiratory distress GI Inspection: Yes normal to inspection Back/Spine/Pelvis Cervical Spine: normal cervical lordosis Thoracic/Lumbar Spine: thoracic and lumbar spine normal to inspection Skin General skin exam: no rashes or lesions noted Neuro General: patient oriented x3, gait normal, tone normal and moves all extremities Extrem General: Yes normal to inspection and Yes capillary refill normal Telehealth Telehealth Telehealth Platform: [employer] Location of provider rendering services: practice address Location of patient: address on file Patient Identification confirmed using: Name, : Yes Telehealth method: video Patient verbally consented to treatment: Yes Patient verbally consented to billing insurance company: Yes Patient informed of any privacy concerns related to visit: Yes Minutes spent on Phone/Video with Pt.: 15 Assessment & Plan Assessment & Plan (1) BPH (benign prostatic hyperplasia): Code(s): N40.0 - Benign prostatic hyperplasia without lower urinary tract symptoms Category: Medical Qualifiers: Lower urinary tract symptom presence: symptoms present Lower urinary tract symptom detail: weak urinary stream Qualified Code(s): N40.1 - Benign prostatic hyperplasia with lower urinary tract symptoms; R39.12 - Poor urinary stream (2) Bladder instability: Code(s): N32.89 - Other specified disorders of bladder Category: Medical Plan Three-month follow-up tele Medications: New vibegron 75 mg PO DAILY 30 tabs 2RF 30 days Discontinued tadalafil Discontinued Reason: Patient Completed Course 5 mg PO DAILY 90 days 90 tabs 1RF N40.1 - Benign prostatic hyperplasia with lower urinary tract symptoms, R39.12 - Poor urinary stream Patient Instructions: This note is constructed using voice recognition software. While every effort has been made to ensure accuracy rough and truing machine operator errors may have been included. Imaging studies, laboratory and physical exam results were discussed and reviewed in detail. No major barriers to patient understanding were identified. An opportunity to ask questions regarding the treatment plan was provided. All questions were answered. The patient expressed understanding and agreement with the above treatment plan. The patient is aware they should contact our office by phone for worsening of their current condition or the appearance of new urologic symptoms. Compliance is encouraged with any medications and followup testing that is ordered. It is a privilege to participate in the urologic care of your patient. If you have any questions or concerns regarding treatment for the above conditions, or other urologic issues, please do not hesitate to contact me. The office tele phone contact is [phone]. Sincerely, Dr Oniel Rowe MD, [facility] - Urology Compassionate Specialist Care for the Genitourinary System Coding Level of Care Code Tele Est Pt Level 3 (29638) Add On Problem Visit Only Diagnoses Benign prostatic hyperplasia with weak urinary stream N40.1; R39.12 Lower urinary tract symptom presence: symptoms present Lower urinary tract symptom detail: weak urinary stream Bladder instability N32.89
--- OUTSIDE RECORDS SUMMARY | 2025-09-09 19:29 | XMS_ITS | Encounter Summary ---
Author Organization [facility] Address [address] [place] [address] Care Team Providers Care Mitering Machine Operator Name Role Phone Reji Elizalde Primary Care Provider [phone] Encounter Details Date Type Department Care Team (Late st Contact Info) Description 07/06/2025 Results Follow-Up Adult Medicine [facility] [address], [place] [phone] Chika Flaherty PA [address], [place] Social History Tobacco Use Types Packs/Day [...] care for your loved ones. For example, school childcare attendant or elderly care for an older adult? [...] 1:00 PM EDT Office Visit Adult Medicine [address] [phone] Reji Elizalde PA [address] [place] [phone] documented as of this encounter Visit Diagnoses Not on filedocumented in this encounter Additional Health Concerns Assessment Noted Time PHQ-9 Depression Total Score: 0 10/06/19 11:18 AM EST A fall risk assessment has been complete d for the patient 10/06/2024 11:17 AM EST documented as of this encounter Care Teams Mitering Machine Operator Relationship Specialty Start Date End Date Reji Elizalde PA [address] [place] [address] PCP - General Internal Medicine 06/15/21 [facility] 09/29/24 documented as of this encounter
--- OUTSIDE RECORDS SUMMARY | 2025-09-09 19:30 | XMS_ITS | Clinical Summary ---
Author Organization [facility] [address] [place] [address] Address [address] [place] [address] Phone Care Team Providers Care Cleat Thrower Name Role Phone Reji Elizalde Primary Care Provider [phone] Allergies Active Allergy Reactions Criticality Noted Date [...] Care Team Description 08/09/2025 Telephone Adult Medicine [facility] - [address] [phone] Reji Elizalde PA 08/08/2025 2:05 PM EST Lab Draw Station - [address] Proteinuria, unspecified type; Primary hypertension; Pure hypercholesterolemia ; Gastroesophageal reflux disease without esophagitis; Mild cognitive impairment; Obstructive sleep apnea; Memory loss; Hypertrophy of prostate without urinary obstruction 08/08/2025 1:30 PM EST Office Visit Adult Medicine [address] [phone] Reji Elizalde PA Proteinuria, unspecified type (Primary Dx); Primary hypertension; Pure hypercholesterolemia ; Gastroesophageal reflux disease without esophagitis; Mild cognitive impairment; Obstructive sleep apnea; Memory loss; Hypertrophy of prostate without urinary obstruction 07/06/2025 8:10 AM EDT - 07/06/2025 11:59 PM EDT Hospital Encounter Radiology Department - [place] [address] [place], [place] [phone] Proteinuria, unspecified type; Elevated LFTs Discharge Disposition: Home or Self Care 07/06/2025 Results Follow-Up [address] [phone] Chika Flaherty PA 07/04/2025 8:00 AM EDT Office Visit [address] [phone] Chika Flaherty PA Primary hypertension (Primary Dx); [...] three years COLONOSCOPY W/ POLYPECTOMY 03/01/14 PROCEDURE: MA COLSC FLX W/RMVL OF TUMOR POLYP LESION [...] care for your loved ones. For example, childcare attendant or elderly care for an [...] PM EDT Office Visit Adult Medicine [address] [phone] Reji Elizalde PA [address] [place] [phone] Health Maintenance Due Date Last Done Comments [...] reflex microscopic (08/08/2025 2:59 PM EST) Specific [place] Urine 1.020 1.003 - 1.030 LAB URINALYSIS - AUTOMATED METHOD 08/08/2025 5:[address] [facility] pH, Urine 7.5 5.0 - 8.0 pH LAB URINALYSIS - AUTOMATED METHOD 08/08/2025 5:[address] [facility] Leukocytes, Urine Negative Negative LAB URINALYSIS - AUTOMATED METHOD 08/08/2025 5:[address] [facility] Nitrite, Urine Negative Negative LAB URINALYSIS - AUTOMATED METHOD 08/08/2025 5:[address] [facility] Protein, Urine 100(A) <=Trace mg/dL LAB URINALYSIS - AUTOMATED METHOD 08/08/2025 5:[address] [facility] Glucose, Urine Negative Negative mg/dL LAB URINALYSIS - AUTOMATED METHOD 08/08/2025 5:[address] [facility] Ketones, Urine Negative Negative mg/dL LAB URINALYSIS - AUTOMATED METHOD 08/08/2025 5:[address] [facility] Urobilinogen, Urine 1.0 0.2 - 1.0 mg/dL LAB URINALYSIS - AUTOMATED METHOD 08/08/2025 5:[address] [facility] Bilirubin, Urine Negative Negative LAB URINALYSIS - AUTOMATED METHOD 08/08/2025 5:[address] [facility] Blood, Urine Negative Negative LAB URINALYSIS - AUTOMATED METHOD 08/08/2025 5:[address] [facility] RBC, Urine 0 0 - 4 /HPF 08/08/2025 5:[address] [facility] WBC, Urine 10(H) 0 - 4 /HPF 08/08/2025 5:[address] [facility] Squamous Epithelial, Urine 10 0 - 60 /LPF 08/08/2025 5:[address] [facility] Bacteria, Urine Negative Negative /HPF 08/08/2025 5:[address] [facility] Hyaline Casts, Urine 3 0 - 3 /LPF 08/08/2025 5:[address] [facility] Urine Urine specimen obtained by clean catch procedure / Unknown Non-blood Collection / Unknown 08/08/2025 2:59 PM EST 08/08/2025 2:59 PM EST us Reji LUDWIG LAB URINE ORDERABLES Taylor rowell Result [facility] [address] [place] [address], [place] [phone] * (ABNORMAL) Microalbumin creatinine urine ratio (08/08/2025 2:59 PM EST) Pathologist [facility] Creatinine, Urine 146.0 mg/dL LAB CHEMISTRY METHOD 08/08/2025 9:34 PM EST [facility] Microalb, Ur 628.0(H) 0.0 - 29.0 mg/L LAB CHEMISTRY METHOD 08/08/2025 9:34 PM EST [facility] Microalb/Crea t Ratio 430(H) <30 mg/g creat LAB CHEMISTRY METHOD 08/08/2025 9:34 PM EST [facility] Urine Urine specimen obtained by clean catch procedure / Unknown Non-blood Collection / Unknown 08/08/2025 2:59 PM EST 08/08/2025 2:59 PM EST Reji LUDWIG LAB URINE ORDERABLES Taylor l Result Performing Organization Address [facility]/ZIP Co de Phone Number [facility] [address] [place] [address], [place] [phone] * (ABNORMAL) Urinalysis with reflex microscopic and culture (07/06/2025 8:47 AM EDT) [facility] Specific [place] Urine 1.021 1.003 - 1.030 LAB URINALYSIS - AUTOMATED METHOD 07/06/2025 10:18 AM EDT [facility] pH, Urine 5.5 5.0 - 8.0 pH LAB URINALYSIS - AUTOMATED METHOD 07/06/2025 10:18 AM EDT [facility] Leukocytes, Urine Trace(A) Negative LAB URINALYSIS - AUTOMATED METHOD 07/06/2025 10:[facility] Nitrite, Urine Negative Negative LAB URINALYSIS - AUTOMATED METHOD 07/06/2025 10:18 AM [facility] Protein, Urine 100(A) <=Trace mg/dL LAB URINALYSIS - AUTOMATED METHOD 07/06/2025 10:18 AM [facility] Glucose, Urine Negative Negative mg/dL LAB URINALYSIS - AUTOMATED METHOD 07/06/2025 10:18 AM [facility] Ketones, Urine Trace(A) Negative mg/dL LAB URINALYSIS - AUTOMATED METHOD 07/06/2025 10:18 AM [facility] Urobilinogen, Urine 1.0 0.2 - 1.0 mg/dL LAB URINALYSIS - AUTOMATED METHOD 07/06/2025 10:18 AM [facility] Bilirubin, Urine Negative Negative LAB URINALYSIS - AUTOMATED METHOD 07/06/2025 10:18 AM [facility] Blood, Urine Negative Negative LAB URINALYSIS - AUTOMATED METHOD 07/06/2025 10:18 AM [facility] RBC, Urine 1.9 0 - 4 /HPF LAB URINALYSIS - AUTOMATED METHOD 07/06/2025 10:18 AM [facility] WBC, Urine 8.7(H) 0 - 4 /HPF LAB URINALYSIS - AUTOMATED METHOD 07/06/2025 10:18 AM [facility] Squamous Epithelial, Urine 31 0 - 60 /LPF LAB URINALYSIS - AUTOMATED METHOD 07/06/2025 10:18 AM [facility] Bacteria, Urine Negative Negative /HPF LAB URINALYSIS - AUTOMATED METHOD 07/06/2025 10:18 AM [facility] Hyaline Casts, Urine 1.2 0 - 3 /LPF LAB URINALYSIS - AUTOMATED METHOD 07/06/2025 10:18 AM [facility] Urine Urine specimen obtained by clean catch procedure / Unknown Non-blood Collection / Unknown 07/06/2025 8:47 AM EDT 07/06/2025 8:47 AM EDT Chika LUDWIG LAB URINE ORDERABLES Final Resu lt Performing Organization Address [facility]/ZIP Co de Phone Number [facility] [address] [place] [address], [place] [phone] * Morris urine culture tube (07/06/2025 8:47 AM EDT) Pathologist [facility] Extra Tube Hold for add-ons. 07/06/2025 10:01 AM EDT [facility] Comment:Auto resulted. Urine Urine specimen obtained by clean catch procedure / Unknown Non-blood Collection / Unknown 07/06/2025 8:47 AM EDT 07/06/2025 8:47 AM EDT Chika LUDWIG LAB URINE ORDERABLES Final Resu lt Performing Organization Address [facility] de Phone Number [facility] [address] [place] [address], [place] [phone] * (ABNORMAL) Lipid panel with reflex to direct LDL (07/06/2025 8:47 AM EDT) [facility] Cholesterol 158 0 - 200 mg/dL LAB CHEMISTRY METHOD 07/06/2025 12:29 PM EDT [facility] Triglycerides 191(H) 0 - 150 mg/dL LAB CHEMISTRY METHOD 07/06/2025 12:29 PM EDT [facility] HDL 34(L) >=40 mg/dL LAB CHEMISTRY METHOD 07/06/2025 12:29 PM EDT [facility] LDL Calculated 86 0 - 100 mg/dL LAB CHEMISTRY METHOD 07/06/2025 12:29 PM EDT [facility] Comment:Estimated LDL Calcul ated using equation: Total cholesterol - HDL cholesterol - (Triglycerides/5) VLDL Cholesterol Aristides 38.2 mg/dL LAB CHEMISTRY METHOD 07/06/2025 12:29 PM EDT [facility] Non HDL Chol. (LDL+VLDL) 124 <145 mg/dL LAB CHEMISTRY METHOD 07/06/2025 12:29 PM EDT [facility] Chol/HDL Ratio 4.6(H) 0.0 - 4.4 LAB CHEMISTRY METHOD 07/06/2025 12:29 PM [facility] Blood Venous blood specimen / Unknown Venipuncture / Unknown 07/06/2025 8:47 AM EDT 07/06/2025 8:47 AM EDT us Chika LUDWIG LAB BLOOD ORDERABLES Final Resu lt [facility] [address] [place] [address], [place] [phone] * (ABNORMAL) CBC auto differential (07/06/2025 8:47 AM EDT) WBC 9.3 4.8 - 10.8 K/mcL LAB HEMETOLOGY METHOD 07/06/2025 10:12 AM [facility] RBC 5.00 4.50 - 5.50 M/[facility] LAB HEMETOLOGY METHOD 07/06/2025 10:12 AM [facility] Hemoglobin 15.8 13.5 - 17.5 g/dL LAB HEMETOLOGY METHOD 07/06/2025 10:12 AM [facility] Hematocrit 46.2 42.0 - 54.0 % LAB HEMETOLOGY METHOD 07/06/2025 10:12 AM [facility] MCV 91.8 79.0 - 98.0 FL LAB HEMETOLOGY METHOD 07/06/2025 10:12 AM [facility] MCH 31.4 27.0 - 32.0 pcg LAB HEMETOLOGY METHOD 07/06/2025 10:12 AM [facility] MCHC 34.2 32.0 - 37.0 g/dL LAB HEMETOLOGY METHOD 07/06/2025 10:12 AM [facility] RDW 13.9 11.0 - 15.0 % LAB HEMETOLOGY METHOD 07/06/2025 10:12 AM [facility] Platelets 192 130 - 400 K/mcL LAB HEMETOLOGY METHOD 07/06/2025 10:12 AM [facility] MPV 11.6(H) 7.0 - 11.0 FL LAB HEMETOLOGY METHOD 07/06/2025 10:12 AM [facility] NRBC 0.0 <1.0 % LAB HEMETOLOGY METHOD 07/06/2025 10:12 AM [facility] NRBC Absolute 0.00 <0.10 K/mcL LAB HEMETOLOGY METHOD 07/06/2025 10:12 AM [facility] Neutrophils Relative 42.2 % LAB HEMETOLOGY METHOD 07/06/2025 10:12 AM [facility] Lymphocytes Relative 42.9 % LAB HEMETOLOGY METHOD 07/06/2025 10:12 AM [facility] Monocytes Relative 8.3 % LAB HEMETOLOGY METHOD 07/06/2025 10:12 AM [facility] Eosinophils Relative 5.5 % LAB HEMETOLOGY METHOD 07/06/2025 10:12 AM [facility] Basophils Relative 0.9 % LAB HEMETOLOGY METHOD 07/06/2025 10:12 AM [facility] Immature Granulocytes Relative 0.2 % LAB HEMETOLOGY METHOD 07/06/2025 10:12 AM [facility] Neutrophils Absolute 3.91 1.50 - 7.00 K/mcL LAB HEMETOLOGY METHOD 07/06/2025 10:12 AM [facility] Lymphocytes Absolute 3.97 1.00 - 5.00 K/mcL LAB HEMETOLOGY METHOD 07/06/2025 10:12 AM EDT [facility] Monocytes Absolute 0.77 0.20 - 1.00 K/mcL LAB HEMETOLOGY METHOD 07/06/2025 10:12 AM EDT [facility] Eosinophils Absolute 0.51(H) 0.00 - 0.50 K/[facility] LAB HEMETOLOGY METHOD 07/06/2025 10:12 AM EDT [facility] Basophils Absolute 0.08 0.00 - 0.20 K/[facility] LAB HEMETOLOGY METHOD 07/06/2025 10:12 AM EDT [facility] Immature Granulocytes Absolute 0.02 0.00 - 0.03 K/[facility] LAB HEMETOLOGY METHOD 07/06/2025 10:12 AM EDT [facility] Blood Venous blood specimen / Unknown Venipuncture / Unknown 07/06/2025 8:47 AM EDT 07/06/2025 8:47 AM EDT Chika LUDWIG LAB BLOOD ORDERABLES Final Resu lt [facility] [address] [place] [address], * (ABNORMAL) Culture urine (07/06/2025 8:47 AM EDT) Culture, Urine 10,000-49,000 CFU/mL Streptococcus viridans group(A) 07/07/2025 10:32 AM EDT [facility] Comment:Susceptibility testi ng not routinely performed. If further therapeutic information is required, please consult an infectious disease specialist. Urine Urine specimen obtained by clean catch procedure / Unknown Non-blood Collection / Unknown 07/06/2025 8:47 AM EDT 07/06/2025 10:18 AM EDT Narrative [facility] - 07/07/2025 10:32 AM EDT Additional colony types present in insignificant amounts. Chika LUDWIG LAB MICROBIOLOGY - GENERAL ANDRES FAJARDO Final Result [facility] [address] [place] [address], [place] [phone] * (ABNORMAL) Comprehensive metabolic panel (07/06/2025 8:47 AM EDT) Sodium 140 133 - 145 mmol/L LAB CHEMISTRY METHOD 07/06/2025 12:29 PM [facility] Potassium 4.5 3.5 - 5.5 mmol/L LAB CHEMISTRY METHOD 07/06/2025 12:29 PM [facility] Chloride 109 96 - 110 mmol/L LAB CHEMISTRY METHOD 07/06/2025 12:29 PM [facility] CO2 28 21 - 32 mmol/L LAB CHEMISTRY METHOD 07/06/2025 12:29 PM [facility] Anion Gap 3 3 - 11 LAB CHEMISTRY METHOD 07/06/2025 12:29 PM [facility] Glucose 87 70 - 100 mg/dL LAB CHEMISTRY METHOD 07/06/2025 12:29 PM [facility] BUN 22 5 - 25 mg/dL LAB CHEMISTRY METHOD 07/06/2025 12:29 PM [facility] Creatinine 1.40(H) 0.70 - 1.30 mg/dL LAB CHEMISTRY METHOD 07/06/2025 12:29 PM [facility] eGFR 52(L) >=60 mL/min/1. 73m2 LAB CHEMISTRY METHOD 07/06/2025 12:29 PM [facility] Comment:Calculation based on the Chronic Kidney Disease Epidemiology Collaboration (CKD-EPI) equation refit without adjustment for race. BUN/Creatinine Ratio 15.7 LAB CHEMISTRY METHOD 07/06/2025 12:29 PM EDT [facility] Calcium 8.7 8.5 - 10.5 mg/dL LAB CHEMISTRY METHOD 07/06/2025 12:29 PM [facility] AST (SGOT) 35 10 - 42 unit/L LAB CHEMISTRY METHOD 07/06/2025 12:29 PM [facility] ALT (SGPT) 46 10 - 60 unit/L LAB CHEMISTRY METHOD 07/06/2025 12:29 PM [facility] Alkaline Phosphatase 94 42 - 121 unit/L LAB CHEMISTRY METHOD 07/06/2025 12:29 PM [facility] Total Protein 6.8 6.0 - 8.0 g/dL LAB CHEMISTRY METHOD 07/06/2025 12:29 PM [facility] Albumin 3.9 3.2 - 5.0 g/dL LAB CHEMISTRY METHOD 07/06/2025 12:29 PM [facility] Total Bilirubin 0.9 0.0 - 1.4 mg/dL LAB CHEMISTRY METHOD 07/06/2025 12:29 PM [facility] Blood Venous blood specimen / Unknown Venipuncture / Unknown 07/06/2025 8:47 AM EDT 07/06/2025 8:47 AM EDT us Chika LUDWIG LAB BLOOD ORDERABLES Final Resu lt [facility] [address] [place] [address], [place] [phone] * US Abdomen Complete (07/06/2025 8:33 AM EDT) Anatomical Region Laterality Modality Body Ultrasound 07/06/2025 9:30 AM EDT Impressions 07/06/2025 9:32 AM EDT Hepatic steatosis. -------- FINAL REPORT -------- Dictated By: Monse Phillips Dictated Date: 07/06/2025 09:30 ET Assigned Physician: Monse Phillips Reviewed and Electronically Signed By: Monse Phillips Signed Date: 07/06/2025 09:32 ET Workstation ID: [id number] Transcribed By: Self Edit Transcribed Date: 07/06/2025 [...] Signed Date: 07/06/2025 09:32 ET Workstation ID: [id number] Transcribed By: Self Edit Transcribed Date: 07/06/2025 09:30 ET us Chika LUDWIG [facility] PROCEDURES Final Result * COLONOSCOPY Anesthesia - MAC; [facility] ENDOSCOPY (05/04/2025 2:17 PM EDT) [...] for surveillance. Narrative 05/04/2025 2:[address] [facility] GI Patient Name: Pj Shaikh Procedure Date: 05/04/2025 2:03 PM Date of : 1950 Age: 75 Gender: Male Note Status: Finalized Attending MD: Carmen Winter MD, Procedure Date No Time: 05/04/2025 Procedure: Colonoscopy Indications: High risk colon cancer surveillance: Personal history of colonic polyps, Last colonoscopy: August 2019 Providers: Carmen Winter MD Referring MD: Carmen Witner MD Medicines: Monitored Anesthesia Care Complications: No [...] verified by the physician, the nurse, the patient's librarian and the service technician copier in the pre-procedure area in the endoscopy [...] retroflexion views. Procedure Code(s): --- Professional --- 59283, Colonoscopy, flexible; with biopsy, single or multiple Diagnosis Code(s): --- Professional --- D12.5, Benign neoplasm of sigmoid colon D12.3, Benign neoplasm of transverse colon (hepatic flexure or splenic flexure) CPT copyright 2020 [employer]. All rights reserved. The codes documented in this report are preliminary and upon shop estimator review may be revised to meet current compliance requirements. Carmen Winter MD 05/04/2025 2:18:13 PM This report has been signed electronically.Carmen Winter MD Number of Addenda: 0 Note Initiated On: 05/04/2025 2:03 PM Scope Withdrawal Time: 0 hours 6 minutes 37 seconds Scope In: 2:08:31 PM Scope Out: 2:16:53 PM Endoscopy Department at [facility] - [address] [place] [id number] Procedure Note Carmen Winter MD - 05/04/2025 [facility] GI Patient Name: Pj Shaikh [...] the physician, the nurse, theanesthetist and the service technician copier in the pre-procedure area in the endoscopy [...] retroflexion views. Procedure Code(s): --- Professional --- 11663, Colonoscopy, flexible; with biopsy, singleor multiple Diagnosis Code(s): --- Professional --- D12.5, Benign neoplasm of sigmoid colon D12.3, Benign neoplasm of transverse colon (hepatic flexure or splenic flexure) CPT copyright 2020 [employer]. All rights reserved. The codes documented in this report are preliminary and upon shop estimator reviewmay be revised to meet current compliance requirements. Carmen Winter MD 05/04/2025 2:18:13 PM This report has been signed electronically.Carmen Winter MD Number of Addenda: 0 Note Initiated On: 05/04/2025 2:03 PM Scope Withdrawal Time: 0 hours 6 minutes 37 seconds Scope In: 2:08:31 PM Scope Out: 2:16:53 PM Endoscopy Department at [facility] - [address] [place] [phone] IMPRESSION: - Three diminutive polyps in the [...] Maintenance Insurance [employer] MEDICARE ADVANTAGE Care Teams Cleat Thrower Relationship Specialty Start Date End Date Reji Elizalde PA [address] [place] [address] PCP - General Internal Medicine 06/15/21 [facility] 09/29/24
== END 2025-09-09 15:39 | disposition home or self-care (01) ==
LOC: HO.HUSH 14:12
PROVIDERS: PCP Internal Medicine; Visit Provider Urology
DX: N40.1 Benign prostatic hyperplasia with lower urinary tract symptoms (principal); R39.12 Poor urinary stream; N32.89 Other specified disorders of bladder
CPT/HCPCS: 99213; G2211